=== PATIENT | female | born 1970 | race American Indian/Alaskan Native ===

== ENCOUNTER 2016-07-30 06:32 | Emergency (ER) | payer SELFPAY ==
[2016-07-30 07:23] VITALS: BP 126/84
[2016-07-30] MEDS ORDERED: TYLENOL PO ONE (08:52)
--- NOTE | 2016-07-30 08:53 | Emergency Department Report ---
ED General Adult HPI - General Chief complaint: Headache Stated complaint: HEAD PAIN Time Seen by Provider: 07/30/16 08:48 Source: patient Mode of arrival: Ambulatory Limitations: No Limitations - History of Present Illness Initial comments: 46-year-old -[place] female with a past medical history of viral meningitis in 2007 comes in today for complaint of right sided head pain/ear pain since yesterday. Patient reports that it hurts to scratch or rub the head or lay down on the right side. She denies any fever or chills she does admit to nausea but no vomiting she denies any neck stiffness or back pain. She reports, "I think I have a sinus infection". Patient currently takes no medications on a daily basis she has no known drug allergies she reports her last LMP was 07/12/2016 -: Gradual - Related Data Previous Rx's Medication Instructions Recorded Last Taken Type Cephalexin [Keflex] 500 mg PO Q12HR #14 cap 05/12/16 Unknown Rx HYDROcodone/APAP 5-325 [[place] 1 each PO Q6HR PRN #12 tablet 05/12/16 Unknown Rx 5/325] Ibuprofen [Motrin] 600 mg PO Q8H PRN #20 tablet 05/12/16 Unknown Rx Sulfamethoxazole/Trimethoprim 1 each PO BID #14 tablet 05/12/16 Unknown Rx [Bactrim DS TAB] Amoxicillin/K Clav Tab [Augmentin 1 tab PO Q12HR #20 tab 07/30/16 Unknown Rx 875 mg] Fluticasone [Flonase] 1 spray NS QDAY #1 bottle 07/30/16 Unknown Rx Ibuprofen [Motrin 600 MG tab] 600 mg PO Q8H PRN #30 tablet 07/30/16 Unknown Rx Allergies Allergy/AdvReac Type Severity Reaction Status Date / Time No Known Allergies Allergy Verified 07/30/16 07:23 ED Review of Systems ROS: Stated complaint: HEAD PAIN Other details as noted in HPI Constitutional: denies: chills, fever Eyes: denies: eye pain, eye discharge, vision change ENT: ear pain (right ear pain), congestion (nasal congestion), other (right side scalp tenderness to the parietal) Respiratory: denies: cough, shortness of breath, wheezing Cardiovascular: denies: chest pain, palpitations Endocrine: no symptoms reported Gastrointestinal: nausea. denies: vomiting, diarrhea, constipation Genitourinary: denies: urgency, dysuria, discharge ED Past Medical Hx - Past Medical History Hx Asthma: Yes - Social History Smoking Status: Current Every Day Smoker - Medications Home Medications: Home Medications Medication Instructions Recorded Confirmed Last Taken Type Cephalexin [Keflex] 500 mg PO Q12HR #14 cap 05/12/16 Unknown Rx HYDROcodone/APAP 5-325 [[place] 1 each PO Q6HR PRN #12 tablet 05/12/16 Unknown Rx 5/325] Ibuprofen [Motrin] 600 mg PO Q8H PRN #20 tablet 05/12/16 Unknown Rx Sulfamethoxazole/Trimethoprim 1 each PO BID #14 tablet 05/12/16 Unknown Rx [Bactrim DS TAB] Amoxicillin/K Clav Tab [Augmentin 1 tab PO Q12HR #20 tab 07/30/16 Unknown Rx 875 mg] Fluticasone [Flonase] 1 spray NS QDAY #1 bottle 07/30/16 Unknown Rx Ibuprofen [Motrin 600 MG tab] 600 mg PO Q8H PRN #30 tablet 07/30/16 Unknown Rx ED Physical Exam - General Limitations: No Limitations General appearance: alert, in no apparent distress - Head Head exam: Present: atraumatic, normocephalic, other (scalp tenderness to the right parietal) - Eye Eye exam: Present: normal appearance, PERRL, EOMI - ENT ENT exam: Present: normal exam, mucous membranes moist, TM's normal bilaterally , normal external ear exam - Neck Neck exam: Present: normal inspection, full ROM. Absent: tenderness, lymphadenopathy - Respiratory Respiratory exam: Present: normal lung sounds bilaterally. Absent: respiratory distress - Expanded Neurological Exam Expanded Speech: Present: fluid speech Cranial nerves: EOM's Intact: Normal, Gag Reflex: Normal, Tongue Deviation: Normal, Nystagmus: Normal, Facial Sensation: Normal Cerebellar function: Finger to Nose: Normal, Heel to Díaz: Normal, Romberg: Normal Upper motor neuron: Lio Neglect: Normal, Pronator Drift: Normal Sensory exam: Upper Extremity Light Touch: Normal, Lower Extremity Light Touch: Normal Motor strength exam: RUE: 4, LUE: 4, RLE: 4, LLE: 4 ED Course Vital Signs 07/30/16 07:10 Temperature 98.3 F Pulse Rate 87 Respiratory 18 Rate Blood Pressure 126/84 O2 Sat by Pulse 100 Oximetry ED Medical Decision Making - Radiology Data Radiology results: image reviewed CT HEAD WITHOUT CONTRAST INDICATION: Headache with history of meningitis. COMPARISON: None similar. FINDINGS: Noncontrast head CT with few images repeated for motion demonstrates normal ventricles and sulci without acute or recent infarct, hemorrhage, mass effect or midline shift. No abnormal extra-axial fluid collections. Posterior fossa structures and basilar cisterns appear within normal limits. Symmetric eye globes. Mild pansinusitis. Clear mastoid air cells. Intact calvarium. Mild right parietal scalp soft tissue swelling. Few radiopaque dental material incidentally noted. Mid to lower cervical spondylosis. CONCLUSION: No acute intracranial CT abnormality with mild right parietal scalp swelling, mild pansinusitis and few other incidental findings, as described. Thank you for the opportunity to participate in this patient's care. Transcribed By: RS Dictated By: URI JONES MD Electronically Authenticated By: URI JONES MD Signed Date/Time: 07/30/16 1005 - Medical Decision Making Since been evaluated by this provider in fast track. This case was discussed with Dr. Mariscal. We will do a CAT scan of the patient's head to rule out any abnormalities. We'll give Tylenol 975 mg by mouth now. Based on results will treat patient accordingly. Critical care attestation.: If time is entered above; I have spent that time in minutes in the direct care of this critically ill patient, excluding procedure time. ED Disposition Clinical Impression: Sinusitis Qualifiers: Sinusitis location: unspecified location Chronicity: acute Disposition: DISCHARGED TO HOME OR SELFCARE Is pt being admited?: No Does the pt Need Aspirin: No Condition: Stable Instructions: Sinusitis (ED) Prescriptions: Amoxicillin/K Clav Tab [Augmentin 875 mg] 1 tab PO Q12HR #20 tab Fluticasone [Flonase] 1 spray NS QDAY #1 bottle Ibuprofen [Motrin 600 MG tab] 600 mg PO Q8H PRN #30 tablet PRN Reason: Pain Referrals: BEATRIZ SHEIKH MD [Staff Physician] - 3-5 Days Forms: Work/School Release Form(ED)
--- NOTE | 2016-07-30 10:08 | Cat Scan Report ---
CT HEAD WITHOUT CONTRAST INDICATION: Headache with history of meningitis. COMPARISON: None similar. FINDINGS: Noncontrast head CT with few images repeated for motion demonstrates normal ventricles and sulci without acute or recent infarct, hemorrhage, mass effect or midline shift. No abnormal extra-axial fluid collections. Posterior fossa structures and basilar cisterns appear within normal limits. Symmetric eye globes. Mild pansinusitis. Clear mastoid air cells. Intact calvarium. Mild right parietal scalp soft tissue swelling. Few radiopaque dental material incidentally noted. Mid to lower cervical spondylosis. CONCLUSION: No acute intracranial CT abnormality with mild right parietal scalp swelling, mild pansinusitis and few other incidental findings, as described. Thank you for the opportunity to participate in this patient's care.
== END 2016-07-30 10:36 | disposition home or self-care (01) ==
LOC: ED 06:32
DX: J01.90 Acute sinusitis, unspecified (principal); J45.909 Unspecified asthma, uncomplicated; F17.200 Nicotine dependence, unspecified, uncomplicated
CPT/HCPCS: 70450

== ENCOUNTER 2016-07-30 18:33 | Emergency (ER) | payer SELFPAY ==
[2016-07-30 20:31] VITALS: BP 149/74
[2016-07-30] MEDS ORDERED: MORPHINE IV ONE (20:40)
[2016-07-30] MEDS ORDERED: BENADRYL IV ONE (20:40)
[2016-07-30] MEDS ORDERED: PEPCID IV ONE (20:40)
[2016-07-30] MEDS ORDERED: ZOFRAN IV ONE (20:40)
--- NOTE | 2016-07-30 20:41 | Emergency Department Report ---
HPI - General Chief Complaint: Allergic Reaction Time Seen by Provider: 07/30/16 19:55 - HPI HPI: Patient here complaining that she was here this morning for sinus infection and was prescribed Augmentin Flonase and ibuprofen. She says she took the Augmentin and 30 minutes after she took a demented she started feeling sick and having swelling to right side of face and scalp bumps on the side of her tongue and rash to hands. She was discharged with mild right parietal scalp swelling and mild sinusitis. She is complaining of vomiting in the face, thighs and finger and 7 her tongue. Neisen is swelling of throat, drooling or difficulty breathing. Denies any chest pain or tightness. Pain to hands and feet 10 out of 10 and pain to left side of her head 10 out of [address]. Patient [address] of the head at this morning. CT showed mild right parietal scalp swelling with mild Awan- sinusitis. ED Past Medical Hx - Past Medical History Previous Medical History?: Yes Hx Asthma: Yes - Surgical History Past Surgical History?: No - Family History Family history: no significant - Social History Smoking Status: Never Smoker Substance Use Type: None - Medications Home Medications: Home Medications Medication Instructions Recorded Confirmed Last Taken Type Cephalexin [Keflex] 500 mg PO Q12HR #14 cap 05/12/16 Unknown Rx HYDROcodone/APAP 5-325 [[place] 1 each PO Q6HR PRN #12 tablet 05/12/16 Unknown Rx 5/325] Ibuprofen [Motrin] 600 mg PO Q8H PRN #20 tablet 05/12/16 Unknown Rx Sulfamethoxazole/Trimethoprim 1 each PO BID #14 tablet 05/12/16 Unknown Rx [Bactrim DS TAB] Amoxicillin/K Clav Tab [Augmentin 1 tab PO Q12HR #20 tab 07/30/16 Unknown Rx 875 mg] Azithromycin [Zithromax Z-TRAY] 250 mg PO DAILY #6 tab 07/30/16 Unknown Rx Fluticasone [Flonase] 1 spray NS QDAY #1 bottle 07/30/16 Unknown Rx Ibuprofen [Motrin 600 MG tab] 600 mg PO Q8H PRN #30 tablet 07/30/16 Unknown Rx predniSONE [Deltasone] 20 mg PO QDAY #5 tab 07/30/16 Unknown Rx ED Review of Systems ROS: Stated complaint: ALLERGIC REACTION/TONGUE SWELLING Other details as noted in HPI Comment: All other systems reviewed and negative Constitutional: denies: chills, fever ENT: congestion. denies: ear pain, throat pain Respiratory: no symptoms reported Cardiovascular: denies: chest pain, palpitations, edema, syncope Gastrointestinal: denies: abdominal pain, nausea, vomiting, diarrhea Skin: rash Neurological: headache. denies: weakness, numbness, paresthesias, confusion, abnormal gait, vertigo Physical Exam - Physical Exam Vital Signs: Vital Signs 07/30/16 07/30/16 18:45 20:28 Temperature 98.3 F Pulse Rate 94 H 74 Respiratory 21 16 Rate Blood Pressure 139/81 Blood Pressure 149/74 [Left] O2 Sat by Pulse 99 95 Oximetry General: General: This is a 46-year-old female here for the second time today, she is well-nourished well-developed and in no acute distress. Physical Exam: Head: Normocephalic atraumatic. No contusion, abrasion. Tender to palpate right parietal scalp, no induration or fluctuance. No erythema. Mouth: Moist, no pharyngeal exudate or erythema. Uvula is midline and oral airway is patent. No gingival enlargement or dental tenderness. No facial swelling. No peritonsillar abscesses. Noted small lesion to the anterior tongue otherwise normal Neurologic: GCS at 15, alert and oriented 3, speech is normal and fluid. Negative pronator drift. Normal reflexes. Facial drooping. 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 No motor or sensory deficit. Neck: Supple, no C-spine tenderness, no tracheal deviation. Nontender to palpate. no adenopathy Ears: Bilateral TMs congested without erythema .bilateral EAC without any redness swelling or drainage Eyes: Bilateral pupils equal and reactive to light, bilateral EOM intact. Bilateral sclera and conjunctiva without injection. Normal accommodation Nose: Mucosa moist, positive congestion and erythema. Positive clear drainage. maxillary and frontal sinus non-tender to palpate. Lungs: Clear to auscultate bilaterally no rhonchi wheezes or rales. Normal work of breathing extremity; No CCE. +2 pulses. No neurovascular compromise Cardiovascular: S1-S2, regular rate rhythm. No murmurs. Skin: Maculopapular rash scattered sparsely to bilateral upper and lower extremities. Erythema without any induration. Psych: Normal mood and behavior. ED Course Vital Signs 07/30/16 07/30/16 18:45 20:28 Temperature 98.3 F Pulse Rate 94 H 74 Respiratory 21 16 Rate Blood Pressure 139/81 Blood Pressure 149/74 [Left] O2 Sat by Pulse 99 95 Oximetry - Reevaluation(s) Reevaluation #1: 07/30/16 22:24 Patient given Benadryl 50 mg IV, Solu-Medrol 125 mg IV, Pepcid 20 mg IV, morphine 4 mg IV and Zofran 4 mg IV in emergency room. She believes of headache and hand pain. 07/30/16 22:25 ED Medical Decision Making - Radiology Data Radiology results: report reviewed CT scan of the head that was done earlier this morning showed mild sinusitis and mild right scalp swelling. - Medical Decision Making ED course: A she presents to the emergency room after being seen this morning reporting that she has allergic reaction from Augmentin. She reports that she has a rash and swelling after taking Augmentin. She had CT scan this morning which showed that she has mild pansinusitis and mild right parietal scalp swelling. She was treated with Augmentin, Flonase and ibuprofen. Patient given Benadryl 50 mg, Solu-Medrol 125 mg, morphine 4 mg, Zofran 4 mg, and Pepcid 20 mg IV in emergency room. Upon reevaluation, rash subsided and patient says she feels much better. I discussed with her that she should stop taking Augmentin and I'll place her on prednisone, Claritin and Zithromax. 2. Undescended discharge instruction and discharged home with her family in stable condition. Critical care attestation.: If time is entered above; I have spent that time in minutes in the direct care of this critically ill patient, excluding procedure time. ED Disposition Clinical Impression: Allergic reaction to Augmentin, Rash and nonspecific skin eruption, Exanthema Sinusitis Qualifiers: Sinusitis location: pansinusitis Chronicity: unspecified Qualified Code(s): J32.4 - Chronic pansinusitis Disposition: DISCHARGED TO HOME OR SELFCARE Is pt being admited?: No Does the pt Need Aspirin: No Condition: Stable Instructions: Acute Rash (ED), Antibiotic Medication Allergy (ED), Sinusitis ( ED), Viral Exanthem (ED) Additional Instructions: Please stop taking Augmentin as it appears urine allergic to this Follow-up with your primary care physician in the morning. if he does not have a primary care physician he can follow up with [facility]. Please take medication as prescribed Prescriptions: Azithromycin [Zithromax Z-TRAY] 250 mg PO DAILY #6 tab predniSONE [Deltasone] 20 mg PO QDAY #5 tab Referrals: PRIMARY CARE, [Primary Care Provider] - 3-5 Days Forms: Work/School Release Form(ED)
== END 2016-07-30 22:48 | disposition home or self-care (01) ==
LOC: ED 18:33
DX: T36.0X5A Adverse effect of penicillins, initial encounter (principal); Y92.89 Other specified places as the place of occurrence of the external cause; J32.4 Chronic pansinusitis; R21 Rash and other nonspecific skin eruption; J45.909 Unspecified asthma, uncomplicated; Z88.1 Allergy status to other antibiotic agents
CPT/HCPCS: 96374; 96375; 99282; J1200; J2270; J2405; J2930

== ENCOUNTER 2016-08-01 01:56 | Inpatient (IN) | payer OTHER ==
[2016-08-01] MEDS ORDERED: PEPCID IV ONE (02:35)
[2016-08-01] MEDS ORDERED: BENADRYL IV ONE (02:35)
--- NOTE | 2016-08-01 03:04 | Emergency Department Report ---
HPI - General Chief Complaint: Allergic Reaction Time Seen by Provider: 08/01/16 03:04 - HPI HPI: 46-year-old female with past medical history isn't presents to the hospital complains of allergic reaction. Patient was seen here on July 30 and diagnosed with sinusitis after receiving of CT. She was put on Augmentin. Patient repositioned at that same day with symptoms of allergic reaction. She states she had lesions on her tongue, throat pain, and rash. Daytime. She was treated in the ED with Solu-Medrol, Benadryl, Pepcid, morphine, and Zofran and had improvement. She was discharged home on prednisone and Z-Tray which she has been taking since the . Despite this patient developed throat swelling and difficulty swallowing tonight, her macular rash has become more raised in described as a burning pain and she has swelling to bilateral hands and feet. Patient denies previous allergies prior to this episode ED Past Medical Hx - Past Medical History Previous Medical History?: Yes Hx Asthma: Yes - Social History Smoking Status: Never Smoker - Medications Home Medications: Home Medications Medication Instructions Recorded Confirmed Last Taken Type Cephalexin [Keflex] 500 mg PO Q12HR #14 cap 05/12/16 Unknown Rx HYDROcodone/APAP 5-325 [[place] 1 each PO Q6HR PRN #12 tablet 05/12/16 Unknown Rx 5/325] Ibuprofen [Motrin] 600 mg PO Q8H PRN #20 tablet 05/12/16 Unknown Rx Sulfamethoxazole/Trimethoprim 1 each PO BID #14 tablet 05/12/16 Unknown Rx [Bactrim DS TAB] Amoxicillin/K Clav Tab [Augmentin 1 tab PO Q12HR #20 tab 07/30/16 Unknown Rx 875 mg] Azithromycin [Zithromax Z-TRAY] 250 mg PO DAILY #6 tab 07/30/16 Unknown Rx Fluticasone [Flonase] 1 spray NS QDAY #1 bottle 07/30/16 Unknown Rx Ibuprofen [Motrin 600 MG tab] 600 mg PO Q8H PRN #30 tablet 07/30/16 Unknown Rx predniSONE [Deltasone] 20 mg PO QDAY #5 tab 07/30/16 Unknown Rx ED Review of Systems ROS: Stated complaint: FEVER, THROAT CLOSING Other details as noted in HPI Comment: All other systems reviewed and negative Other: Constitutional: No fevers chills Eyes: No eye pain visual changes ENT: as per hpi Neck: Denies pain Respiratory: Denies cough wheezing Cardiovascular: Denies chest pain, palpitations, syncope GI: Denies abdominal pain, nausea, vomiting, diarrhea : Denies dysuria, urinary frequency, or urgency Musculoskeletal: Denies back pain, joint swelling Skin:as per hpi Neurologic: Denies headache, numbness, weakness Psychiatric: Denies suicidal ideation, hallucinations Physical Exam - Physical Exam Vital Signs: Vital Signs 08/01/16 08/01/16 08/01/16 02:14 02:47 02:53 Temperature 98.7 F 98.7 F Pulse Rate 124 H 117 H Respiratory 14 26 H Rate Blood Pressure 136/115 Blood Pressure 124/71 [Left] O2 Sat by Pulse 99 100 100 Oximetry Physical Exam: General: No limitations, patient is alert in no acute distress Head exam: Atraumatic, normocephalic Eyes exam: Normal appearance ENT: Moist mucous membrane, sores noted to tongue (pt states these are improving ) , voice sounds normal Neck exam: Normal inspection, full range of motion, no meningismus nontender Respiratory exam: Clear to auscultation bilateral, no wheezes, rales, crackles Cardiovascular: Normal rate and rhythm, normal heart sounds Abdomen: Soft, nondistended, and nontender, with normal bowel sounds, no rebound, or guarding Extremity: Full range of motion, scattered rash CT scan, bilateral pedal edema and mild bilateral hand edema Back: Normal Inspection, full range of motion, no tenderness Neurologic: Alert, oriented x3, cranial nerves intact, no motor or sensory deficit Psychiatric: normal affect, normal mood Skin: Patient is raised circular lesions scattered throughout her body, mildly tender to palp. More flat macular nonblanching erythematous lesions identified in the lower extremities. ED Course Vital Signs 08/01/16 08/01/16 08/01/16 02:14 02:47 02:53 Temperature 98.7 F 98.7 F Pulse Rate 124 H 117 H Respiratory 14 26 H Rate Blood Pressure 136/115 Blood Pressure 124/71 [Left] O2 Sat by Pulse 99 100 100 Oximetry ED Medical Decision Making - Lab Data Result diagrams: 08/01/16 02:45 08/01/16 02:45 Lab Results 08/01/16 08/01/16 08/01/16 Range/Units 02:45 02:45 02:45 WBC 16.3 H (4.5-11.0) K/mm3 RBC 4.64 (3.65-5.03) M/mm3 Hgb 10.7 (10.1-14.3) gm/dl Hct 35.0 (30.3-42.9) % MCV 76 L (79-97) fl MCH 23 L (28-32) pg MCHC 30 (30-34) % RDW 20.4 H (13.2-15.2) % Plt Count 331 (140-440) K/mm3 Lymph % (Auto) 14.3 (13.4-35.0) % Daniels % (Auto) 7.0 (0.0-7.3) % Eos % (Auto) 0.0 (0.0-4.3) % Baso % (Auto) 0.1 (0.0-1.8) % Lymph # 2.3 (1.2-5.4) K/mm3 Daniels # 1.1 H (0.0-0.8) K/mm3 Eos # 0.0 (0.0-0.4) K/mm3 Baso # 0.0 (0.0-0.1) K/mm3 Seg Neutrophils % 78.6 H (40.0-70.0) % Seg Neutrophils # 12.8 H (1.8-7.7) K/mm3 PT 17.2 H (12.2-14.9) Sec. INR 1.41 H (0.87-1.13) APTT 33.0 (24.2-36.6) Sec. Sodium 134 L (137-145) mmol/L Potassium 4.4 (3.6-5.0) mmol/L Chloride 99.9 (98-107) mmol/L Carbon Dioxide 11 L (22-30) mmol/L Anion Gap 28 mmol/L BUN 16 (7-17) mg/dL Creatinine 1.4 H (0.7-1.2) mg/dL Estimated GFR 49 ml/min BUN/Creatinine Ratio 11.42 % Glucose 100 (65-100) mg/dL Calcium 9.3 (8.4-10.2) mg/dL - Medical Decision Making Patient be admitted to the hospital due to worsening symptoms despite outpatient treatment. Treated in the ED with Solu-Medrol, Benadryl, Pepcid, morphine, and Zofran - Differential Diagnosis allergic reaction, viral syndrome, drug eruption rash Critical Care Time: No Critical care attestation.: If time is entered above; I have spent that time in minutes in the direct care of this critically ill patient, excluding procedure time. ED Disposition Clinical Impression: Allergic reaction to Augmentin, Sinusitis, Exanthema Disposition: OP ADMITTED IP TO THIS HOSP Is pt being admited?: Yes Condition: Stable Time of Disposition: 04:11 (Dr rose/hosp)
[2016-08-01 03:23] LABS: Basophils % (Auto) 0.1 % (0.0-1.8); Hemoglobin 10.7 gm/dl (10.1-14.3); White Blood Count 16.3 K/mm3 (4.5-11.0)
[2016-08-01 03:27] LABS: Mean Corpuscular HGB Conc 30 % (30-34); Mean Corpuscular Hemoglobin 23 pg (28-32); Mean Corpuscular Volume 76 fl (79-97); Platelet Count 331 K/mm3 (140-440); Red Blood Count 4.64 M/mm3 (3.65-5.03); Red Cell Distribution Width 20.4 % (13.2-15.2)
[2016-08-01 03:32] LABS: INR 1.41 (0.87-1.13)
[2016-08-01 03:42] LABS: BUN/Creatinine Ratio 11.42; Calcium 9.3 mg/dL (8.4-10.2); Chloride 99.9 mmol/L (98-107); Potassium 4.4 mmol/L (3.6-5.0)
[2016-08-01] MEDS ORDERED: MORPHINE IV ONE (03:45)
[2016-08-01] MEDS ORDERED: ZOFRAN IV ONE (03:45)
[2016-08-01] MEDS ORDERED: MORPHINE ONE (03:47)
[2016-08-01] MEDS ORDERED: ZOFRAN ONE (03:47)
[2016-08-01] MEDS ORDERED: ADRENALINE P/F SUB-Q ONE (05:16)
[2016-08-01] MEDS ORDERED: MILK OF MAGNESIA PO PRN (05:16)
[2016-08-01] MEDS ORDERED: DULCOLAX PR PRN (05:16)
[2016-08-01] MEDS ORDERED: ZOFRAN IV PRN (05:16)
--- NOTE | 2016-08-01 05:26 | History and Physical Report ---
History of Present Illness Date of examination: 08/01/16 Date of admission: 08/01/16 04:12 Chief complaint: allergic reaction and siusitis History of present illness: Should 46-year-old female that originally presented to the ED would acute sinusitis. Patient was given Augmentin/amoxicillin and in a few days came back with a complaint of rash high-dose swollen eyes and lips. Patient was given Solu-Medrol Pepcid and anabiotic was changed from Augmentin to azithromycin. 2 days ago patient returned back to the ED stating that she's had difficulty swallowing now the hives and wheals are more pronounced in the itching is more pronounced as well. Patient was admitted for a large reaction rule out anaphylactic reaction now. On evaluation patient's mouth and oropharynx I do not see much inflammation or angioedema. I think this be may be more sinusitis with postnasal drip and mucus formation as opposed to daily allergic reaction. Patient does have allergic reaction given the welts and hives on her legs. But I do not think this has anything to do with her shortness of breath. Patient has extensive wheezing or shortness of breath albuterol Atrovent nebulizers will be very beneficial. Past History Past Medical History: denies: acute AR, arrhythmia, anemia, cancer, COPD, DVT, ESRD, GERD, hypothyroidism, migraines, PVD, pulmonary embolism, seizures, stroke Past Surgical History: denies: No surgical history, appendectomy, abd. aortic aneurysm repair, arthroscopy, valve replacement Social history: no significant social history, full code. denies: smoking, alcohol abuse, prescription drug abuse, IV drug use, AND/DNR-allow natural Family history: no significant family history Medications and Allergies Allergies Allergy/AdvReac Type Severity Reaction Status Date / Time amoxicillin Allergy Swelling Verified 08/01/16 03:07 Home Medications Medication Instructions Recorded Confirmed Last Taken Type Azithromycin [Zithromax Z-TRAY] 250 mg PO DAILY #6 tab 07/30/16 08/01/16 1 Day Ago Rx predniSONE [Deltasone] 20 mg PO QDAY #5 tab 07/30/16 08/01/16 1 Day Ago Rx Review of Systems Constitutional: no weight loss, no weight gain, no sweats, no weakness, no malaise, no poor appetite, no daytime sleepiness, no chronic pain, no other Ears, nose, mouth and throat: sinus pressure, sinus pain, swelling in mouth, no deferred, no ear pain, no ear discharge, no tinnitis, no decreased hearing, no nose pain, no nasal congestion, no nasal discharge, no epistaxis, no bleeding gums, no dental pain, no mouth pain, no dysphagia, no hoarseness, no sore throat , no swelling in throat, no odynophagia, no voice changes, no post-nasal drip, no headache, no vertigo, no pain front of neck, no neck fullness/pressure, no neck lump Breasts: normal Cardiovascular: no palpitations, no rapid/irregular heart beat, no edema, no syncope, no paroxysmal nocturnal dyspnea, no claudication Respiratory: shortness of breath, sleep apnea, no cough, no cough with sputum, no wheezing, no pain Gastrointestinal: no nausea, no vomiting, no diarrhea, no constipation, no change in bowel habits, no hematemesis, no BRBPR, no melena, no early satiety, no heartburn, no indigestion, no jaundice, no dyspepsia/bloating, no early satiety Genitourinary Female: no pelvic pain, no urinary frequency, no stress incontinence, no incomplete emptying Menstruation: no premenarcheal, no ammenorrhea, no ammenorrhea on BC, no period normal Rectal: no incontinence, no bleeding Musculoskeletal: no neck pain, no shooting arm pain, no hot joints, no morning stiffness, no muscle weakness, no muscle cramps, no myalgias, no atrophy, no limitation of motion, no fractures, no loss of height, no prior amputations, no arthritis Integumentary: rash, pruritis, redness, no sores, no wounds, no jaundice, no boils, no darkening of skin, no acne, no dryness, no color changes, no unusual bruising, no brittle nails, no hirsutism Neurological: no parathesias, no tingling, no syncope, no tremors, no headaches , no migraines, no convulsions, no aphasia, no change in mentation, no memory loss, no motor disturbance, no sensory deficit, no loss of vision, no hearing difficulties, no paralysis Psychiatric: no memory loss, no change in sleep habits, no sleep disturbances, no insomnia, no hypersomnia, no change in libido, no suicidal ideation, no paranoia, no depression, no anxiety attacks, no sadness/tearfullness Endocrine: no cold intolerance, no heat intolerance, no polyphagia, no excessive thirst, no increase in ring/shoe/hat size, no proptosis, no deepening of the voice, no thyroid mass, no high blood sugars, no low blood sugars, no recent glucocorticoid use Hematologic/Lymphatic: no easy bleeding, no lymphadenopathy, no other Allergic/Immunologic: anaphylaxis, seasonal allergies, no urticaria, no wheezing , no persistent infections, no gluten intolerance Exam - Constitutional Vitals: Temp Pulse Resp BP Pulse Ox 98.7 F 117 H 26 H 124/71 100 08/01/16 02:47 08/01/16 02:47 08/01/16 02:47 08/01/16 02:47 08/01/16 02:53 General appearance: Present: mild distress, well-nourished - EENT Eyes: Present: PERRL ENT: hearing intact, clear oral mucosa - Neck Neck: Present: supple, normal ROM - Respiratory Respiratory: bilateral: rales, wheezing (heart wheezing bilaterally on physical exam.) - Cardiovascular Heart Sounds: Present: S1 & S2. Absent: rub, click - Extremities Extremities: pulses symmetrical, No edema Peripheral Pulses: within normal limits - Abdominal General gastrointestinal: Present: soft, non-tender, non-distended, normal bowel sounds Female genitourinary: Present: normal - Integumentary Integumentary: Present: clear, warm, dry. Absent: erythema, jaundice, rash - Musculoskeletal Musculoskeletal: gait normal, strength equal bilaterally - Psychiatric Psychiatric: appropriate mood/affect - Neurologic Neurologic: CNII-XII intact, moves all extremities Results - Labs CBC & Chem 7: 08/01/16 02:45 08/01/16 02:45 Labs: Laboratory Last Values WBC 16.3 K/mm3 (4.5-11.0) H 08/01/16 02:45 RBC 4.64 M/mm3 (3.65-5.03) 08/01/16 02:45 Hgb 10.7 gm/dl (10.1-14.3) 08/01/16 02:45 Hct 35.0 % (30.3-42.9) 08/01/16 02:45 MCV 76 fl (79-97) L 08/01/16 02:45 MCH 23 pg (28-32) L 08/01/16 02:45 MCHC 30 % (30-34) 08/01/16 02:45 RDW 20.4 % (13.2-15.2) H 08/01/16 02:45 Plt Count 331 K/mm3 (140-440) 08/01/16 02:45 Lymph % (Auto) 14.3 % (13.4-35.0) 08/01/16 02:45 [place] % (Auto) 7.0 % (0.0-7.3) 08/01/16 02:45 Eos % (Auto) 0.0 % (0.0-4.3) 08/01/16 02:45 Baso % (Auto) 0.1 % (0.0-1.8) 08/01/16 02:45 Lymph # 2.3 K/mm3 (1.2-5.4) 08/01/16 02:45 [place] # 1.1 K/mm3 (0.0-0.8) H 08/01/16 02:45 Eos # 0.0 K/mm3 (0.0-0.4) 08/01/16 02:45 Baso # 0.0 K/mm3 (0.0-0.1) 08/01/16 02:45 Seg Neutrophils % 78.6 % (40.0-70.0) H 08/01/16 02:45 Seg Neutrophils # 12.8 K/mm3 (1.8-7.7) H 08/01/16 02:45 PT 17.2 Sec. (12.2-14.9) H 08/01/16 02:45 INR 1.41 (0.87-1.13) H 08/01/16 02:45 APTT 33.0 Sec. (24.2-36.6) 08/01/16 02:45 Sodium 134 mmol/L (137-145) L 08/01/16 02:45 Potassium 4.4 mmol/L (3.6-5.0) 08/01/16 02:45 Chloride 99.9 mmol/L (98-107) 08/01/16 02:45 Carbon Dioxide 11 mmol/L (22-30) L 08/01/16 02:45 Anion Gap 28 mmol/L 08/01/16 02:45 BUN 16 mg/dL (7-17) 08/01/16 02:45 Creatinine 1.4 mg/dL (0.7-1.2) H 08/01/16 02:45 Estimated GFR 49 ml/min 08/01/16 02:45 BUN/Creatinine Ratio 11.42 % 08/01/16 02:45 Glucose 100 mg/dL (65-100) 08/01/16 02:45 Calcium 9.3 mg/dL (8.4-10.2) 08/01/16 02:45 - Imaging and Cardiology EKG: image reviewed Assessment and Plan Advance Directives: Yes VTE prophylaxis?: Chemical Plan of care discussed with patient/family: Yes - Patient Problems (1) Allergic reaction to Augmentin Current Visit: Yes Status: Acute Plan to address problem: Patient with allergic reaction to Augmentin. Patient has some hives we'll on her skin. Blisters on her forearms. 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 Patient does not appear to be that acutely ill now. We'll treat with steroid- induced Solu-Medrol Benadryl. (2) Exanthema Current Visit: Yes Status: Acute (3) Sinusitis Current Visit: Yes Status: Acute Qualifiers: Sinusitis location: S Chronicity: C Recurrence: R Plan to address problem: Acute sinusitis we'll treat with azithromycin. Mucinex D. (4) Asthma exacerbation Current Visit: Yes Status: Acute Plan to address problem: Patient has significant underlying asthma. We'll treat with albuterol Atrovent nebulizes as Solu-Medrol as well. [place] anabiotic azithromycin has been already been given.
[2016-08-01] MEDS: ZITHROMAX 500 MG in NACL 0.9% 250ML 250 ML IV SCH (06:08)
[2016-08-01] MEDS: NACL 0.9% 1000 ML 1,000 ML IV SCH (06:09)
[2016-08-01] MEDS: ATIVAN IV PRN ×2 (07:08→22:29)
[2016-08-01] MEDS: MORPHINE IV PRN ×3 (07:08→22:30)
[2016-08-01] MEDS ORDERED: DUONEB 0.5 MG-3 MG/3 ML SOLN IH SCH (08:00)
[2016-08-01] MEDS: DUONEB 0.5 MG-3 MG/3 ML SOLN IH SCH ×3 (08:28→20:55)
--- NOTE | 2016-08-01 08:49 | XRay Report ---
Single view chest: History: Asthma. Findings: Normal cardiomediastinal silhouette. Trachea is midline. No consolidation, pneumothorax or pleural effusion. Impression: No acute cardiopulmonary findings.
--- NOTE | 2016-08-01 09:05 | Admit Criteria Form ---
Admission Criteria Documentation: ASTHMA Clinical Indications for Admission to Inpatient Care (Place 'X' for any and all applicable criteria): Admission is indicated for ANY ONE of the following (1)(2)(3)(4)(5): [ ]I. Absent or markedly diminished breath sounds (silent chest) [ ]II. Oxygen saturation < 92% [ ]III. PaCO2 = / > 42 mm Hg (5.6 kPa) [ ]IV. Peak expiratory flow rate < 40% of predicted or personal best after treatment. [ ]V. Peak expiratory flow rate < 33% of predicted or personal before after treatment [ ]. Change in mental status [ ]VII. Ventilatory support required [ ]VIII. PaO2 < 60 mm Hg (8.0 kPa) [ ]IX. Cyanosis [ ]X. Cardiac dysrhythmia (e.g., bradycardia) [ ]XI. Hemodynamic instability [ ]XII. Radiographic evidence of complication requiring inpatient treatment (e.g., pneumonia, pneumothorax) [X ]XIII. Inpatient admission required rather than observation care (also use Asthma: Observation Care guideline as appropriate) because of ANY ONE of the following: [ ]a) Respiratory finding that is severe or persistent (eg, dyspnea, tachypnea, accessory muscle use) [ ]b) Airflow measurements less than 60% of predicted or personal best that persist (e.g., over 24 hours) or worsen despite treatments [ ]c) Supplemental oxygen or respiratory treatments for over 24 hours that are performable only in acute inpatient setting [X ]d) Other condition, treatment or monitoring requiring inpatient admission. Extended stay beyond goal length of stay may be needed for (26)(27)(28): [ ]a) Severe respiratory failure (23) (29) (30) [ ]b) Secondary causes and complications (25) [ ]c) Status asthmaticus [ ]d) Chronic obstructive asthma [ ]e) Older patients (29) [ ]f) Slow resolution [ ]g) Clinically significant exacerbation of comorbidities (eg, jacinta. heart failure, atrial fibrillation) The original [employer] content created by [email or web address] has been revised. The portions of the content which have been revised are identified through the use of italic text or in bold, and [employer] has neither reviewed nor approved the modified material. All other unmodified content is copyright [employer] Please see references footnoted in the original [facility] edition 2016 Admission Criteria Met: Yes
--- NOTE | 2016-08-01 15:17 | Event Note ---
Date: 08/01/16
[2016-08-01] MEDS ORDERED: BENADRYL IV PRN (16:11)
[2016-08-01] MEDS: LOVENOX SUB-Q SCH (16:43)
[2016-08-01] MEDS: BENADRYL IV SCH ×2 (16:43→23:08)
[2016-08-01] MEDS: PEPCID IV SCH ×2 (16:44→22:30)
[2016-08-01 17:46] LABS: HIV-1 Antigen p24 Non React (Non React); HIVR-1/2 Ab Non React (Non React)
[2016-08-02] MEDS: DUONEB 0.5 MG-3 MG/3 ML SOLN IH SCH ×4 (02:09→20:42)
[2016-08-02 05:15] LABS: Anion Gap 23 mmol/L; BUN/Creatinine Ratio 26.66; Blood Urea Nitrogen 24 mg/dL (7-17); Calcium 8.4 mg/dL (8.4-10.2); Carbon Dioxide 13 mmol/L (22-30); Chloride 105.2 mmol/L (98-107); Glucose 152 mg/dL (65-100); Sodium 138 mmol/L (137-145)
[2016-08-02 05:33] LABS: Potassium 3.4 mmol/L (3.6-5.0)
[2016-08-02] MEDS: BENADRYL IV SCH ×4 (06:14→22:18)
[2016-08-02] MEDS: TYLENOL PO PRN (10:14)
[2016-08-02] MEDS: LOVENOX SUB-Q SCH (10:15)
[2016-08-02] MEDS: PEPCID IV SCH (10:15)
[2016-08-02] MEDS: ZITHROMAX 500 MG in NACL 0.9% 250ML 250 ML IV SCH (10:16)
[2016-08-02] MEDS: NACL 0.9% 1000 ML 1,000 ML IV SCH (10:16)
[2016-08-02 10:32] LABS: Basophils % (Auto) TNR % (0.0-1.8); Diff Status TNR; Eosinophils % (Auto) TNR % (0.0-4.3)
[2016-08-02] MEDS: ATIVAN IV PRN (12:05)
--- NOTE | 2016-08-02 13:52 | Progress Note ---
Assessment and Plan Assessment and plan: Acute Asthma exacerbation * We'll treat with albuterol /Atrovent nebulizes, Solu-Medrol and azithromycin Allergic reaction to Augmentin * Patient with allergic reaction to Augmentin. Patient has some hives we'll on her skin. Blisters on her forearms. 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 Patient does not appear to be that acutely ill now. We'll treat with Solu- Medrol and Benadryl. Acute Exanthema * HIV, RPR negative * likely due to allergic reaction to augmentin Acute Sinusitis * continue with azithromycin. Mucinex D. leukocytosis * likely due to stress and steroid induced Dysphagia * We'll do a barium swallow study and speech * Could be due to underlying allergic reaction to an augmentin and an acute asthma exacerbation History Interval history: pt seen and examined, c/o chocking when tries solid food also c/o exertional dyspnea Hospitalist Physical - Physical exam Narrative exam: GENERAL: well-developed and well-nourished -[place] female lying on bed appeared to be in no discomfort. HEENT: Normocephalic. Atraumatic. No conjunctival congestion or icterus. Patient has moist mucous membranes. NECK: Supple. Trachea midline. CHEST/LUNGS: few wheezes auscultated bilaterally, breathing nonlabored. No crackles or rhonchi. HEART/CARDIOVASCULAR: Regular in rate and rhythm. S1 and S2 positive. ABDOMEN: Abdomen is soft, nontender. Patient has normal bowel sounds. SKIN: Positive for hives on the extremities mainly on upper. Warm and dry. NEURO: No focal motor deficit. Follows command. MUSCULOSKELETAL: No joint effusion or tenderness. EXTRIMITY: No edema, no cyanosis or clubbing. PSYCH: Cooperative. - Constitutional Vitals: Temp Pulse Resp BP Pulse Ox 98.4 F 99 H 20 120/64 97 08/02/16 08:00 08/02/16 08:58 08/02/16 08:58 08/02/16 08:00 08/02/16 08:00 General appearance: Present: mild distress, well-nourished Results - Labs CBC & Chem 7: 08/02/16 15:25 08/02/16 03:37 Labs: Laboratory Last Values WBC Not Reportable 08/02/16 10:04 RBC Not Reportable 08/02/16 10:04 Hgb Not Reportable 08/02/16 10:04 Hct Not Reportable 08/02/16 10:04 MCV Not Reportable 08/02/16 10:04 MCH Not Reportable 08/02/16 10:04 MCHC Not Reportable 08/02/16 10:04 RDW Not Reportable 08/02/16 10:04 Plt Count Not Reportable 08/02/16 10:04 Lymph % (Auto) Not Reportable 08/02/16 10:04 [place] % (Auto) TNR 08/02/16 10:04 Eos % (Auto) TNR 08/02/16 10:04 Baso % (Auto) TNR 08/02/16 10:04 Lymph # TNR 08/02/16 10:04 [place] # TNR 08/02/16 10:04 Eos # TNR 08/02/16 10:04 Baso # TNR 08/02/16 10:04 Add Manual Diff TNR 08/02/16 10:04 Seg Neutrophils % TNR 08/02/16 10:04 Seg Neutrophils # TNR 08/02/16 10:04 PT 17.2 Sec. (12.2-14.9) H 08/01/16 02:45 INR 1.41 (0.87-1.13) H 08/01/16 02:45 APTT 33.0 Sec. (24.2-36.6) 08/01/16 02:45 Sodium 138 mmol/L (137-145) 08/02/16 03:37 Potassium 3.4 mmol/L (3.6-5.0) L D 08/02/16 03:37 Chloride 105.2 mmol/L (98-107) 08/02/16 03:37 Carbon Dioxide 13 mmol/L (22-30) L 08/02/16 03:37 Anion Gap 23 mmol/L 08/02/16 03:37 BUN 24 mg/dL (7-17) H 08/02/16 03:37 Creatinine 0.9 mg/dL (0.7-1.2) 08/02/16 03:37 Estimated GFR > 60 ml/min 08/02/16 03:37 BUN/Creatinine Ratio 26.66 % 08/02/16 03:37 Glucose 152 mg/dL (65-100) H 08/02/16 03:37 Calcium 8.4 mg/dL (8.4-10.2) 08/02/16 03:37 RPR Nonreactive (Nonreactive) 08/01/16 17:06 HIV 1&2 Antibody Rapid Non react (Non React) 08/01/16 17:06 HIV P24 Antigen Non react (Non React) 08/01/16 17:06
[2016-08-02 16:12] LABS: Hematocrit 25.4 % (30.3-42.9); Mean Corpuscular HGB Conc 31 % (30-34); Mean Corpuscular Volume 74 fl (79-97); Platelet Count 224 K/mm3 (140-440); Red Blood Count 3.44 M/mm3 (3.65-5.03)
[2016-08-02 16:23] LABS: Mean Corpuscular Hemoglobin 23 pg (28-32); Red Cell Distribution Width 20.3 % (13.2-15.2)
[2016-08-02] MEDS: MORPHINE IV PRN (20:25)
[2016-08-02] MEDS: PEPCID PO SCH (22:21)
[2016-08-03] MEDS: DUONEB 0.5 MG-3 MG/3 ML SOLN IH SCH ×4 (02:03→19:41)
[2016-08-03] MEDS: BENADRYL IV SCH ×5 (05:45→22:27)
[2016-08-03] MEDS: LOVENOX SUB-Q SCH (10:22)
[2016-08-03] MEDS: ZITHROMAX 500 MG in NACL 0.9% 250ML 250 ML IV SCH (10:22)
[2016-08-03] MEDS: PEPCID PO SCH ×2 (10:22→21:45)
[2016-08-03] MEDS ORDERED: PROVENTIL IH PRN (23:20)
[2016-08-04] MEDS: TYLENOL PO PRN (00:42)
[2016-08-04] MEDS ORDERED: CHLORASEPTIC MM PRN (00:47)
[2016-08-04] MEDS ORDERED: CEPACOL X STRENGTH MM PRN (00:49)
[2016-08-04] MEDS: ATIVAN IV PRN (05:25)
[2016-08-04] MEDS: BENADRYL IV SCH ×4 (05:26→22:28)
--- NOTE | 2016-08-04 08:15 | Progress Note ---
Assessment and Plan Assessment and plan: Acute Asthma exacerbation * We'll treat with albuterol /Atrovent nebulizes, Solu-Medrol and azithromycin Allergic reaction to Augmentin * Patient with allergic reaction to Augmentin. Patient has some hives we'll on her skin. Blisters on her forearms. 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 Patient does not appear to be that acutely ill now. We'll treat with Solu- Medrol and Benadryl. Acute Exanthema * HIV, RPR negative * likely due to allergic reaction to augmentin Acute Sinusitis * continue with azithromycin. Mucinex D. leukocytosis * likely due to stress and steroid induced * repeat level tomorrow Dysphagia * We'll do a barium swallow study, scheduled on Thursday * Could be due to underlying allergic reaction to an augmentin and an acute asthma exacerbation * no aspiration noted per speech eval, c/o pain on swallowing * will place on magic mouth wash History Interval history: pt seen and examined, c/o chocking when tries solid food with pain also c/o exertional dyspnea Hospitalist Physical - Physical exam Narrative exam: GENERAL: well-developed and well-nourished -[place] female lying on bed appeared to be in no discomfort. HEENT: Normocephalic. Atraumatic. No conjunctival congestion or icterus. Patient has moist mucous membranes. tongue with thick white coating NECK: Supple. Trachea midline. CHEST/LUNGS: few wheezes auscultated bilaterally, breathing nonlabored. No crackles or rhonchi. HEART/CARDIOVASCULAR: Regular in rate and rhythm. S1 and S2 positive. ABDOMEN: Abdomen is soft, nontender. Patient has normal bowel sounds. SKIN: Positive for hives on the extremities mainly on upper. Warm and dry. NEURO: No focal motor deficit. Follows command. MUSCULOSKELETAL: No joint effusion or tenderness. EXTRIMITY: No edema, no cyanosis or clubbing. PSYCH: Cooperative. - Constitutional Vitals: Temp Pulse Resp BP Pulse Ox 98.2 F 73 18 131/64 99 08/04/16 04:05 08/04/16 04:05 08/04/16 07:23 08/04/16 04:05 08/04/16 04:05 General appearance: Present: mild distress, well-nourished Results - Labs CBC & Chem 7: 08/02/16 15:25 08/02/16 03:37 Labs: Laboratory Last Values WBC 21.0 K/mm3 (4.5-11.0) H 08/02/16 15:25 RBC 3.44 M/mm3 (3.65-5.03) L 08/02/16 15:25 Hgb 8.0 gm/dl (10.1-14.3) L 08/02/16 15:25 Hct 25.4 % (30.3-42.9) L D 08/02/16 15:25 MCV 74 fl (79-97) L 08/02/16 15:25 MCH 23 pg (28-32) L 08/02/16 15:25 MCHC 31 % (30-34) 08/02/16 15:25 RDW 20.3 % (13.2-15.2) H 08/02/16 15:25 Plt Count 224 K/mm3 (140-440) 08/02/16 15:25 Lymph % (Auto) Not Reportable 08/02/16 10:04 [place] % (Auto) TNR 08/02/16 10:04 Eos % (Auto) TNR 08/02/16 10:04 Baso % (Auto) TNR 08/02/16 10:04 Lymph # TNR 08/02/16 10:04 [place] # TNR 08/02/16 10:04 Eos # TNR 08/02/16 10:04 Baso # TNR 08/02/16 10:04 Add Manual Diff TNR 08/02/16 10:04 Seg Neutrophils % TNR 08/02/16 10:04 Seg Neutrophils # TNR 08/02/16 10:04 PT 17.2 Sec. (12.2-14.9) H 08/01/16 02:45 INR 1.41 (0.87-1.13) H 08/01/16 02:45 APTT 33.0 Sec. (24.2-36.6) 08/01/16 02:45 Sodium 138 mmol/L (137-145) 08/02/16 03:37 Potassium 3.4 mmol/L (3.6-5.0) L D 08/02/16 03:37 Chloride 105.2 mmol/L (98-107) 08/02/16 03:37 Carbon Dioxide 13 mmol/L (22-30) L 08/02/16 03:37 Anion Gap 23 mmol/L 08/02/16 03:37 BUN 24 mg/dL (7-17) H 08/02/16 03:37 Creatinine 0.9 mg/dL (0.7-1.2) 08/02/16 03:37 Estimated GFR > 60 ml/min 08/02/16 03:37 BUN/Creatinine Ratio 26.66 % 08/02/16 03:37 Glucose 152 mg/dL (65-100) H 08/02/16 03:37 Calcium 8.4 mg/dL (8.4-10.2) 08/02/16 03:37 RPR Nonreactive (Nonreactive) 08/01/16 17:06 HIV 1&2 Antibody Rapid Non react (Non React) 08/01/16 17:06 HIV P24 Antigen Non react (Non React) 08/01/16 17:06
[2016-08-04] MEDS: DUONEB 0.5 MG-3 MG/3 ML SOLN IH SCH ×3 (08:59→20:00)
[2016-08-04 09:21] LABS: Hematocrit 22.3 % (30.3-42.9); Hemoglobin 7.2 gm/dl (10.1-14.3); Mean Corpuscular HGB Conc 32 % (30-34); Mean Corpuscular Hemoglobin 24 pg (28-32); Mean Corpuscular Volume 74 fl (79-97); Platelet Count 216 K/mm3 (140-440); Red Blood Count 3.03 M/mm3 (3.65-5.03); Red Cell Distribution Width 20.4 % (13.2-15.2); White Blood Count 14.1 K/mm3 (4.5-11.0)
[2016-08-04] MEDS: ZITHROMAX 500 MG in NACL 0.9% 250ML 250 ML IV SCH (10:01)
[2016-08-04] MEDS: LOVENOX SUB-Q SCH (10:02)
[2016-08-04] MEDS: PEPCID PO SCH ×3 (10:02→22:28)
[2016-08-04] MEDS: MORPHINE IV PRN ×2 (11:55→22:29)
[2016-08-04] MEDS: MAGIC MOUTHWASH PO SCH ×2 (13:44→22:27)
--- NOTE | 2016-08-04 16:22 | Fluoroscopy Report ---
MODIFIED BARIUM SWALLOW Findings: Fluoroscopy was provided by the radiologist for speech therapy to assess the swallowing mechanism. Please refer to the formal report by speech therapy. Impression: Successful modified barium swallow.
--- NOTE | 2016-08-04 18:21 | Progress Note ---
Assessment and Plan Assessment and plan: Acute Asthma exacerbation * Cont with albuterol /Atrovent nebulizes, Solu-Medrol and azithromycin Allergic reaction to Augmentin * Patient with allergic reaction to Augmentin. Patient has some hives on her skin. Blisters on her forearms. 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 Cont with Solu-Medrol and Benadryl. Acute Exanthema * HIV, RPR negative * likely due to allergic reaction to augmentin Acute Sinusitis * continue with azithromycin. Mucinex D. leukocytosis * likely due to stress and steroid induced * repeat level tomorrow Pharyngeal Dysphagia * barium swallow study was abnormal * no aspiration noted per speech eval, c/o pain on swallowing * will place on magic mouth wash, place on GI soft diet Microcytic anemia * No active bleeding, monitor H and H * Check stool for occult blood, if positive consult GI Hypokalemia, replace and monitor History Interval history: pt seen and examined, c/o chocking when tries solid food with pain also c/o exertional dyspnea, H and h dropping Hospitalist Physical - Physical exam Narrative exam: GENERAL: well-developed and well-nourished -[place] female lying on bed appeared to be in no discomfort. HEENT: Normocephalic. Atraumatic. No conjunctival congestion or icterus. Patient has moist mucous membranes. tongue with thick white coating NECK: Supple. Trachea midline. CHEST/LUNGS: few wheezes auscultated bilaterally, breathing nonlabored. No crackles or rhonchi. HEART/CARDIOVASCULAR: Regular in rate and rhythm. S1 and S2 positive. ABDOMEN: Abdomen is soft, nontender. Patient has normal bowel sounds. SKIN: Positive for hives on the extremities mainly on upper. Warm and dry. NEURO: No focal motor deficit. Follows command. MUSCULOSKELETAL: No joint effusion or tenderness. EXTRIMITY: No edema, no cyanosis or clubbing. PSYCH: Cooperative. - Constitutional Vitals: Temp Pulse Resp BP Pulse Ox 98.7 F 88 20 122/67 100 08/04/16 11:30 08/04/16 14:10 08/04/16 14:10 08/04/16 11:30 08/04/16 11:30 General appearance: Present: mild distress, well-nourished Results - Labs CBC & Chem 7: 08/04/16 08:52 08/02/16 03:37 Labs: Laboratory Last Values WBC 14.1 K/mm3 (4.5-11.0) H 08/04/16 08:52 RBC 3.03 M/mm3 (3.65-5.03) L 08/04/16 08:52 Hgb 7.2 gm/dl (10.1-14.3) L 08/04/16 08:52 Hct 22.3 % (30.3-42.9) L 08/04/16 08:52 MCV 74 fl (79-97) L 08/04/16 08:52 MCH 24 pg (28-32) L 08/04/16 08:52 MCHC 32 % (30-34) 08/04/16 08:52 RDW 20.4 % (13.2-15.2) H 08/04/16 08:52 Plt Count 216 K/mm3 (140-440) 08/04/16 08:52 Lymph % (Auto) Not Reportable 08/02/16 10:04 [place] % (Auto) TNR 08/02/16 10:04 Eos % (Auto) TNR 08/02/16 10:04 Baso % (Auto) TNR 08/02/16 10:04 Lymph # TNR 08/02/16 10:04 [place] # TNR 08/02/16 10:04 Eos # TNR 08/02/16 10:04 Baso # TNR 08/02/16 10:04 Add Manual Diff TNR 08/02/16 10:04 Seg Neutrophils % TNR 08/02/16 10:04 Seg Neutrophils # TNR 08/02/16 10:04 PT 17.2 Sec. (12.2-14.9) H 08/01/16 02:45 INR 1.41 (0.87-1.13) H 08/01/16 02:45 APTT 33.0 Sec. (24.2-36.6) 08/01/16 02:45 Sodium 138 mmol/L (137-145) 08/02/16 03:37 Potassium 3.4 mmol/L (3.6-5.0) L D 08/02/16 03:37 Chloride 105.2 mmol/L (98-107) 08/02/16 03:37 Carbon Dioxide 13 mmol/L (22-30) L 08/02/16 03:37 Anion Gap 23 mmol/L 08/02/16 03:37 BUN 24 mg/dL (7-17) H 08/02/16 03:37 Creatinine 0.9 mg/dL (0.7-1.2) 08/02/16 03:37 Estimated GFR > 60 ml/min 08/02/16 03:37 BUN/Creatinine Ratio 26.66 % 08/02/16 03:37 Glucose 152 mg/dL (65-100) H 08/02/16 03:37 Calcium 8.4 mg/dL (8.4-10.2) 08/02/16 03:37 RPR Nonreactive (Nonreactive) 08/01/16 17:06 HIV 1&2 Antibody Rapid Non react (Non React) 08/01/16 17:06 HIV P24 Antigen Non react (Non React) 08/01/16 17:06 - Imaging and Cardiology Imaging and Cardiology: barium swallow study result noted
[2016-08-04 21:51] LABS: Total Iron Binding Capacity 380.8 mcg/dL (250-450)
[2016-08-04 21:57] LABS: Albumin 3.6 g/dL (3.9-5); Albumin/Globulin Ratio 1.1 %; Bilirubin,Direct 0.2 mg/dL (0-0.2); Bilirubin,Indirect 0.2 mg/dL; Bilirubin,Total 0.4 mg/dL (0.1-1.2); Total Protein 6.8 g/dL (6.3-8.2)
[2016-08-04] MEDS: KCL 10MEQ/100ML 10 MEQ/100 ML BAG IV SCH (22:27)
[2016-08-05] MEDS: KCL 10MEQ/100ML 10 MEQ/100 ML BAG IV SCH (00:48)
[2016-08-05] MEDS ORDERED: K-DUR PO ONE (01:00)
[2016-08-05] MEDS: BENADRYL IV SCH ×4 (05:37→22:11)
[2016-08-05 06:00] LABS: Hematocrit 23.4 % (30.3-42.9); Hemoglobin 7.5 gm/dl (10.1-14.3); Mean Corpuscular HGB Conc 32 % (30-34); Mean Corpuscular Hemoglobin 24 pg (28-32); Mean Corpuscular Volume 73 fl (79-97); Platelet Count 238 K/mm3 (140-440); Red Blood Count 3.19 M/mm3 (3.65-5.03); Red Cell Distribution Width 20.5 % (13.2-15.2); White Blood Count 11.6 K/mm3 (4.5-11.0)
[2016-08-05 06:24] LABS: BUN/Creatinine Ratio 15.71; Blood Urea Nitrogen 11 mg/dL (7-17); Calcium 8.4 mg/dL (8.4-10.2); Carbon Dioxide 16 mmol/L (22-30); Chloride 105.3 mmol/L (98-107); Glucose 125 mg/dL (65-100); Sodium 139 mmol/L (137-145)
[2016-08-05 06:56] LABS: Anion Gap 23 mmol/L
[2016-08-05 06:57] LABS: Potassium 5.2 mmol/L (3.6-5.0)
[2016-08-05 07:35] LABS: Basophils % (Manual) 0 % (0.0-1.8); Blastocytes % (Manual) 0 %; Eosinophils % (Manual) 0 % (0.0-4.3)
[2016-08-05 07:36] LABS: Anisocytosis 1+; Burr Cells Few; Elliptocytes Rare; Hypochromasia 2+; Microcytosis 1+; Polychromasia Rare; Target Cells 1+; Tear Drop Cells Few
[2016-08-05 07:37] LABS: Diff Status Complete; Helmet Cells Rare
[2016-08-05] MEDS: MAGIC MOUTHWASH PO SCH ×3 (08:05→20:30)
[2016-08-05] MEDS: DUONEB 0.5 MG-3 MG/3 ML SOLN IH SCH ×3 (08:06→19:26)
[2016-08-05] MEDS ORDERED: K-DUR PO SCH (10:00)
[2016-08-05] MEDS: PEPCID PO SCH ×2 (11:06→22:08)
[2016-08-05] MEDS: ZITHROMAX 500 MG in NACL 0.9% 250ML 250 ML IV SCH (11:07)
--- NOTE | 2016-08-05 14:27 | Progress Note ---
Assessment and Plan Assessment and plan: Acute Asthma exacerbation Cont with albuterol /Atrovent nebulizes, Solu-Medrol and azithromycin Allergic reaction to Augmentin Patient with allergic reaction to Augmentin. Patient has some hives on her skin. Blisters on her forearms. 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 Cont with Solu-Medrol and Benadryl. Acute Exanthema HIV, RPR negative likely due to allergic reaction to augmentin Acute Sinusitis continue with azithromycin. Mucinex D. leukocytosis likely due to stress and steroid induced repeat level tomorrow Pharyngeal Dysphagia barium swallow study was abnormal no aspiration noted per speech eval, c/o pain on swallowing will place on magic mouth wash, place on GI soft diet Microcytic anemia No active bleeding, monitor H and H Check stool for occult blood, if positive consult GI Hypokalemia, replace and monitor New Issue is dysphagia: Consult GI, questionable EGD New issue of constipation: Order enema, soaps New Issue of drop in hematocrit: Repeat CBC a.m. History Interval history: Patient seen and examined. Follow up on dysphagia. Overnight uneventful. No cp, sob, n/v or severe headaches. Imaging, old records, testing, labs, nursing notes reviewed. Hospitalist Physical - Physical exam Narrative exam: GEN: WDWN, NAD, AWAKE, ALERT, ORIENTATED 3 NECK: SUPPLE, NO THYROMEGALY, NO JVD, NO LAD CVS: RRR, NORMAL S1S2 LUNGS/CHEST: CTA B, NORMAL CHEST EXPANSION B, GOOD AIR ENTRY B ABD: SOFT NTND, GBS, NO REBOUND OR GUARDING EXT/SKIN: NO SIGNIFICANT EDEMA OR RASH MSK: FROM X 4 EXTREMITIES NEURO: CN 2-12 GROSSLY INTACT, NO new FOCAL DEFICITS PSY: CALM - Constitutional Vitals: Temp Pulse Resp BP Pulse Ox 98.8 F 86 18 118/60 98 08/05/16 04:05 08/05/16 08:14 08/05/16 08:14 08/05/16 04:05 08/05/16 04:05 General appearance: Present: well-nourished Results - Labs CBC & Chem 7: 08/05/16 05:16 08/05/16 05:16 Labs: Laboratory Last Values WBC 11.6 K/mm3 (4.5-11.0) H 08/05/16 05:16 RBC 3.19 M/mm3 (3.65-5.03) L 08/05/16 05:16 Hgb 7.5 gm/dl (10.1-14.3) L 08/05/16 05:16 Hct 23.4 % (30.3-42.9) L 08/05/16 05:16 MCV 73 fl (79-97) L 08/05/16 05:16 MCH 24 pg (28-32) L 08/05/16 05:16 MCHC 32 % (30-34) 08/05/16 05:16 RDW 20.5 % (13.2-15.2) H 08/05/16 05:16 Plt Count 238 K/mm3 (140-440) 08/05/16 05:16 Lymph % (Auto) Not Reportable 08/02/16 10:04 [place] % (Auto) TNR 08/02/16 10:04 Eos % (Auto) TNR 08/02/16 10:04 Baso % (Auto) TNR 08/02/16 10:04 Lymph # TNR 08/02/16 10:04 [place] # TNR 08/02/16 10:04 Eos # TNR 08/02/16 10:04 Baso # TNR 08/02/16 10:04 Add Manual Diff Complete 08/05/16 05:16 Total Counted 100 08/05/16 05:16 Seg Neutrophils % TNR 08/02/16 10:04 Seg Neuts % (Manual) 51.0 % (40.0-70.0) 08/05/16 05:16 Band Neutrophils % 1.0 % 08/05/16 05:16 Lymphocytes % (Manual) 41.0 % (13.4-35.0) H 08/05/16 05:16 Reactive Lymphs % (Man) 0 % 08/05/16 05:16 Monocytes % (Manual) 7.0 % (0.0-7.3) 08/05/16 05:16 Eosinophils % (Manual) 0 % (0.0-4.3) 08/05/16 05:16 Basophils % (Manual) 0 % (0.0-1.8) 08/05/16 05:16 Metamyelocytes % 0 % 08/05/16 05:16 Myelocytes % 0 % 08/05/16 05:16 Promyelocytes % 0 % 08/05/16 05:16 Blast Cells % 0 % 08/05/16 05:16 Nucleated RBC % 3.0 % (0.0-0.9) H 08/05/16 05:16 Seg Neutrophils # TNR 08/02/16 10:04 Seg Neutrophils # Man 5.9 K/mm3 (1.8-7.7) 08/05/16 05:16 Band Neutrophils # 0.1 K/mm3 08/05/16 05:16 Lymphocytes # (Manual) 4.8 K/mm3 (1.2-5.4) 08/05/16 05:16 Abs React Lymphs (Man) 0.0 K/mm3 08/05/16 05:16 Monocytes # (Manual) 0.8 K/mm3 (0.0-0.8) 08/05/16 05:16 Eosinophils # (Manual) 0.0 K/mm3 (0.0-0.4) 08/05/16 05:16 Basophils # (Manual) 0.0 K/mm3 (0.0-0.1) 08/05/16 05:16 Metamyelocytes # 0.0 K/mm3 08/05/16 05:16 Myelocytes # 0.0 K/mm3 08/05/16 05:16 Promyelocytes # 0.0 K/mm3 08/05/16 05:16 Blast Cells # 0.0 K/mm3 08/05/16 05:16 WBC Morphology Not Reportable 08/05/16 05:16 Hypersegmented Neuts Not Reportable 08/05/16 05:16 Hyposegmented Neuts Not Reportable 08/05/16 05:16 Hypogranular Neuts Not Reportable 08/05/16 05:16 Smudge Cells Not Reportable 08/05/16 05:16 Toxic Granulation Not Reportable 08/05/16 05:16 Toxic Vacuolation Not Reportable 08/05/16 05:16 Dohle Bodies Not Reportable 08/05/16 05:16 Pelger-Huet Anomaly Not Reportable 08/05/16 05:16 Mandeep Rods Not Reportable 08/05/16 05:16 Platelet Estimate Appears normal 08/05/16 05:16 Clumped Platelets Not Reportable 08/05/16 05:16 Plt Clumps, EDTA Not Reportable 08/05/16 05:16 Large Platelets Not Reportable 08/05/16 05:16 Giant Platelets Not Reportable 08/05/16 05:16 Platelet Satelliting Not Reportable 08/05/16 05:16 Plt Morphology Comment Not Reportable 08/05/16 05:16 RBC Morphology Not Reportable 08/05/16 05:16 Dimorphic RBCs Not Reportable 08/05/16 05:16 Polychromasia Rare 08/05/16 05:16 Hypochromasia 2+ 08/05/16 05:16 Poikilocytosis Not Reportable 08/05/16 05:16 Anisocytosis 1+ 08/05/16 05:16 Microcytosis 1+ 08/05/16 05:16 Macrocytosis Not Reportable 08/05/16 05:16 Spherocytes Not Reportable 08/05/16 05:16 Pappenheimer Bodies Not Reportable 08/05/16 05:16 Sickle Cells Not Reportable 08/05/16 05:16 Target Cells 1+ 08/05/16 05:16 Tear Drop Cells Few 08/05/16 05:16 Ovalocytes Not Reportable 08/05/16 05:16 Helmet Cells Rare 08/05/16 05:16 Whitfield-Medicine Bow Bodies Not Reportable 08/05/16 05:16 Guttenberg Rings Not Reportable 08/05/16 05:16 Caitie Cells Few 08/05/16 05:16 Bite Cells Not Reportable 08/05/16 05:16 Crenated Cell Not Reportable 08/05/16 05:16 Elliptocytes Rare 08/05/16 05:16 Acanthocytes (Spur) Not Reportable 08/05/16 05:16 Rouleaux Not Reportable 08/05/16 05:16 Hemoglobin C Crystals Not Reportable 08/05/16 05:16 Schistocytes Not Reportable 08/05/16 05:16 Malaria parasites Not Reportable 08/05/16 05:16 Surinder Bodies Not Reportable 08/05/16 05:16 Hem Pathologist Commnt No 08/05/16 05:16 PT 17.2 Sec. (12.2-14.9) H 08/01/16 02:45 INR 1.41 (0.87-1.13) H 08/01/16 02:45 APTT 33.0 Sec. (24.2-36.6) 08/01/16 02:45 Sodium 139 mmol/L (137-145) 08/05/16 05:16 Potassium 5.2 mmol/L (3.6-5.0) H D 08/05/16 05:16 Chloride 105.3 mmol/L (98-107) 08/05/16 05:16 Carbon Dioxide 16 mmol/L (22-30) L 08/05/16 05:16 Anion Gap 23 mmol/L 08/05/16 05:16 BUN 11 mg/dL (7-17) 08/05/16 05:16 Creatinine 0.7 mg/dL (0.7-1.2) 08/05/16 05:16 Estimated GFR > 60 ml/min 08/05/16 05:16 BUN/Creatinine Ratio 15.71 % 08/05/16 05:16 Glucose 125 mg/dL (65-100) H 08/05/16 05:16 Calcium 8.4 mg/dL (8.4-10.2) 08/05/16 05:16 Iron 54 ug/dL (37-170) 08/04/16 17:02 TIBC 380.80 mcg/dL (250-450) 08/04/16 17:02 Transferrin 272 mg/dl (192-382) 08/04/16 17:02 Ferritin 145.3 ng/mL (13.0-400.0) 08/04/16 17:02 Total Bilirubin 0.4 mg/dL (0.1-1.2) 08/04/16 17:02 Direct Bilirubin 0.2 mg/dL (0-0.2) 08/04/16 17:02 Indirect Bilirubin 0.2 mg/dL 08/04/16 17:02 AST 407 units/L (5-40) H 08/04/16 17:02 ALT 1863 units/L (7-56) H 08/04/16 17:02 Alkaline Phosphatase 92 units/L (35-129) 08/04/16 17:02 Total Protein 6.8 g/dL (6.3-8.2) 08/04/16 17:02 Albumin 3.6 g/dL (3.9-5) L 08/04/16 17:02 Albumin/Globulin Ratio 1.1 % 08/04/16 17:02 Vitamin B12 > 2000 pg/mL (211-911) H 08/04/16 17:02 Folate 17.53 ng/mL (7.3-26.0) 08/04/16 17:02 RPR Nonreactive (Nonreactive) 08/01/16 17:06 HIV 1&2 Antibody Rapid Non react (Non React) 08/01/16 17:06 HIV P24 Antigen Non react (Non React) 08/01/16 17:06
--- NOTE | 2016-08-05 16:08 | Consultation ---
History of Present Illness - Reason for Consult Consult date: 08/05/16 Anemia, odynophagia - History of Present Illness See Dictation Past History Past Medical History: denies: acute SC, arrhythmia, anemia, cancer, COPD, DVT, ESRD, GERD, hypothyroidism, migraines, PVD, pulmonary embolism, seizures, stroke Past Surgical History: denies: No surgical history, appendectomy, abd. aortic aneurysm repair, arthroscopy, valve replacement Social history: no significant social history, full code. denies: smoking, alcohol abuse, prescription drug abuse, IV drug use, AND/DNR-allow natural Family history: no significant family history Medications and Allergies Allergies Allergy/AdvReac Type Severity Reaction Status Date / Time amoxicillin Allergy Swelling Verified 08/01/16 03:07 Home Medications Medication Instructions Recorded Confirmed Last Taken Type Azithromycin [Zithromax Z-TRAY] 250 mg PO DAILY #6 tab 07/30/16 08/01/16 1 Day Ago Rx predniSONE [Deltasone] 20 mg PO QDAY #5 tab 07/30/16 08/01/16 1 Day Ago Rx Active Meds: Active Medications Acetaminophen (Tylenol) 650 mg PO Q4H PRN PRN Reason: Pain MILD(1-3)/Fever >100.5/ALFONSO Last Admin: 08/04/16 00:42 Dose: 650 mg Albuterol (Proventil) 2.5 mg IH Q4HRT PRN PRN Reason: Shortness Of Breath Albuterol/Ipratropium (Duoneb 0.5 Mg-3 Mg/3 Ml Soln) 1 ampul IH TIDRT [facility] Last Admin: 08/05/16 14:25 Dose: 1 ampul Benzocaine/Menthol (Cepacol X Strength) 1 each MM Q2H PRN PRN Reason: Sore Throat Bisacodyl (Dulcolax) 10 mg SD QDAY PRN PRN Reason: Constipation unrelieved by MOM Diphenhydramine HCl (Benadryl) 25 mg IV Q6H [facility] Last Admin: 08/05/16 11:08 Dose: 25 mg Famotidine (Pepcid) 20 mg PO BID [facility] Last Admin: 08/05/16 11:06 Dose: 20 mg Azithromycin 500 mg/ Sodium (Chloride) 250 mls @ 250 mls/hr IV Q24HR [facility] Last Admin: 08/05/16 11:07 Dose: 250 mls/hr Lidocaine HCl (Magic Mouthwash) 15 ml PO TID [facility] Last Admin: 08/05/16 14:08 Dose: 15 ml Lorazepam (Ativan) 1 mg IV Q4H PRN PRN Reason: Seizures Last Admin: 08/04/16 05:25 Dose: 1 mg Magnesium Hydroxide (Milk Of Magnesia) 30 ml PO Q4H PRN PRN Reason: Constipation Methylprednisolone Sodium Succinate (Solu-Medrol) 40 mg IV Q24HR [facility] Last Admin: 08/05/16 11:06 Dose: 40 mg Morphine Sulfate (Morphine) 2 mg IV Q4H PRN PRN Reason: Pain, Moderate (4-6) Last Admin: 08/04/16 22:29 Dose: 2 mg Ondansetron HCl (Zofran) 4 mg IV Q8H PRN PRN Reason: N/V unrelieved by Reglan Phenol (Chloraseptic) 1 spray MM PRN PRN PRN Reason: Sore Throat Exam - Constitutional Vitals: Temp Pulse Resp BP Pulse Ox 98.8 F 88 18 118/60 98 08/05/16 04:05 08/05/16 14:35 08/05/16 14:35 08/05/16 04:05 08/05/16 04:05 Results - Labs CBC & Chem 7: 08/05/16 05:16 08/05/16 05:16 Labs: Abnormal lab results 08/04/16 08/04/16 08/05/16 Range/Units 17:02 17:02 05:16 WBC 11.6 H (4.5-11.0) K/mm3 RBC 3.19 L (3.65-5.03) M/mm3 Hgb 7.5 L (10.1-14.3) gm/dl Hct 23.4 L (30.3-42.9) % MCV 73 L (79-97) fl MCH 24 L (28-32) pg RDW 20.5 H (13.2-15.2) % Lymphocytes % (Manual) 41.0 H (13.4-35.0) % Nucleated RBC % 3.0 H (0.0-0.9) % Potassium (3.6-5.0) mmol/L Carbon Dioxide (22-30) mmol/L Glucose (65-100) mg/dL AST 407 H (5-40) units/L ALT 1863 H (7-56) units/L Albumin 3.6 L (3.9-5) g/dL Vitamin B12 > 2000 H (211-911) pg/mL 08/05/16 Range/Units 05:16 WBC (4.5-11.0) K/mm3 RBC (3.65-5.03) M/mm3 Hgb (10.1-14.3) gm/dl Hct (30.3-42.9) % MCV (79-97) fl MCH (28-32) pg RDW (13.2-15.2) % Lymphocytes % (Manual) (13.4-35.0) % Nucleated RBC % (0.0-0.9) % Potassium 5.2 H D (3.6-5.0) mmol/L Carbon Dioxide 16 L (22-30) mmol/L Glucose 125 H (65-100) mg/dL AST (5-40) units/L ALT (7-56) units/L Albumin (3.9-5) g/dL Vitamin B12 (211-911) pg/mL Assessment and Plan 1. Odynophagia - primarily with throat pain, and Nina in oropharynx. 2. Microcytic anemia - pt has hx sickle cell trait, and lifelong hx of anemia. Transfused 1x in 10/2015 in [place]. Rec - Diflucan - Possible ENT evaluation for throat - outpatient f/u with GI subsequently. Will sign off. Thanks.
[2016-08-05] MEDS ORDERED: DIFLUCAN/NS 100 MG/50 ML 100 MG/50 ML BAG IV SCH (18:00)
[2016-08-06] MEDS: MORPHINE IV PRN ×3 (00:11→10:10)
--- NOTE | 2016-08-06 01:21 | Consultation ---
REFERRING PHYSICIAN: Abe Zaman MD REASON FOR CONSULTATION: Odynophagia and anemia. HISTORY OF PRESENT ILLNESS: The patient is a 46-year-old woman with a history of sickle cell trait as well as asthma who was admitted because of complaints of sinusitis on 07/30/2016 with medications which may have caused some degree of throat swelling. She was admitted on 08/01/2016 with complaints of throat swelling as well as pain on swallowing, primarily in her throat. She had a modified barium swallow, which showed no aspiration on 08/04/2016. She was also found to be anemic with hemoglobin of 7.5 and an MCV of 73 with normal iron studies. GI consultation was obtained for further evaluation. The patient states she has a lifelong history of anemia with sickle cell trait and has only been transfused once in her life, in 10/2015 in [place], [place]. She has bowel movements that are regular every 2-3 days without any change. There has been no gardenia GI bleeding. She does have lifelong history of GERD with heartburn on almost daily basis for which she drinks warm salt water. She denies dysphagia in the past. Currently, she complains of neck pain, especially in the right side of her neck and throat, and pain on swallowing, primarily in her mouth and throat. There is no chest pain associated with this. ALLERGIES: She has an allergy to penicillin. MEDICATIONS: At home, she was on no medications except for the azithromycin and prednisone started recently for sinusitis. PAST SURGICAL HISTORY: She has no surgical history. PAST MEDICAL HISTORY: She has history of; 1. Asthma. 2. Sickle cell trait. FAMILY HISTORY: Noncontributory. Negative for colon cancer. SOCIAL HISTORY: She is . They moved from [place] after her retired. She smokes less than half a pack per day. She denies ethanol. REVIEW OF SYSTEMS: Negative for weight loss, cough, hemoptysis, dysuria, hematuria, fevers, chills, or sweats. PHYSICAL EXAMINATION: GENERAL: This is a well-developed, well-nourished, middle-aged black female lying in bed in no apparent distress. VITAL SIGNS: Temperature is 98.8, pulse 88, blood pressure is 118/60. HEENT: She is anicteric. Pupils are round and reactive. Oropharynx shows white plaques on tongue and on sides of mouth consistent with thrush. NECK: Moderately tender, especially on the right side. There is no swelling noted. No adenopathy is noted. LUNGS: Clear bilaterally to auscultation. CARDIOVASCULAR: Regular with no extra heart sounds. ABDOMEN: Soft, good bowel sounds, no organomegaly or tenderness to deep palpation. RECTAL: Deferred. EXTREMITIES: Reveal no cyanosis, clubbing, or edema. NEUROLOGIC: She is alert, oriented x 3 and grossly nonfocal. LABORATORY DATA: White count is 11.6, hemoglobin 7.5, hematocrit , MCV of 73, platelet count is 238,000. Iron is 54, TIBC is 380. Please note that her hemoglobin in 05/2016 was 9.8 as well. Her sodium is 139, potassium 5.2, chloride 105, bicarbonate 16, BUN 11, creatinine 0.7, glucose 125. AST is 407, ALT is 1863, alkaline phosphatase is 92, and total bilirubin is 0.4. Albumin is 3.6. IMPRESSION: 1. Anemia -- the patient has microcytic anemia and this is a lifelong problem with the sickle cell trait. It is unclear whether her current level of anemia is any worse than usual. There is no evidence of GI bleeding. However, given her age, we will do a colonoscopy as a screening on an outpatient basis. 2. Gastroesophageal reflux disease-- on no medications at home. She should be on a PPI or H2 angela at discharge and we can follow this up with an upper endoscopy to screen for Jennings's. 3. Odynophagia-- this is secondary to thrush. Diflucan has been started today. ENT evaluation may be appropriate given the neck tenderness. 4. Hepatitis -- the patient has elevated transaminases noted today. She has no history of liver disease. This may represent a viral process or an acute toxic injury. We will check hepatitis serologies and we will recheck liver enzymes tomorrow. HIV serologies are negative. JOB# [id number] HRC/NTS
[2016-08-06 01:24] LABS: Albumin 3.3 g/dL (3.9-5); Albumin/Globulin Ratio 1.1 %; Alkaline Phosphatase 82 units/L (35-129); Anion Gap 19 mmol/L; BUN/Creatinine Ratio 12.85; Bilirubin,Total 0.4 mg/dL (0.1-1.2); Blood Urea Nitrogen 9 mg/dL (7-17); Calcium 8.2 mg/dL (8.4-10.2); Carbon Dioxide 19 mmol/L (22-30); Chloride 101.3 mmol/L (98-107); Glucose 91 mg/dL (65-100); Sodium 136 mmol/L (137-145); Total Protein 6.3 g/dL (6.3-8.2)
[2016-08-06 01:25] LABS: Potassium 3.5 mmol/L (3.6-5.0)
[2016-08-06 01:45] LABS: Alanine Aminotransferase 1148 units/L (7-56)
[2016-08-06 06:11] LABS: Hematocrit 23.9 % (30.3-42.9); Hemoglobin 7.9 gm/dl (10.1-14.3); Mean Corpuscular HGB Conc 33 % (30-34); Mean Corpuscular Volume 72 fl (79-97); Platelet Count 245 K/mm3 (140-440); White Blood Count 9.7 K/mm3 (4.5-11.0)
[2016-08-06 06:12] LABS: Anion Gap 20 mmol/L; BUN/Creatinine Ratio 11.42; Blood Urea Nitrogen 8 mg/dL (7-17); Calcium 8.1 mg/dL (8.4-10.2); Carbon Dioxide 20 mmol/L (22-30); Chloride 105.9 mmol/L (98-107); Glucose 89 mg/dL (65-100); Potassium 3.6 mmol/L (3.6-5.0); Sodium 142 mmol/L (137-145)
[2016-08-06 06:16] LABS: Mean Corpuscular Hemoglobin 24 pg (28-32); Red Cell Distribution Width 20.2 % (13.2-15.2)
[2016-08-06] MEDS: BENADRYL IV SCH (06:19)
[2016-08-06] MEDS: DUONEB 0.5 MG-3 MG/3 ML SOLN IH SCH (07:16)
[2016-08-06 09:06] VITALS: BP 93/50
[2016-08-06] MEDS: PEPCID PO SCH (10:10)
[2016-08-06] MEDS: MAGIC MOUTHWASH PO SCH (10:39)
--- NOTE | 2016-08-06 11:51 | Discharge Summary ---
Providers - Providers Date of Admission: 08/01/16 04:12 Date of discharge: 08/06/16 Attending physician: JAMES LARRY 08/02/16 13:50 Speech Therapy Evaluation and Treat [CONS] Routine Reason For Exam: pt c/o chocking 08/05/16 07:54 Consult to Physician [CONS] Routine Consulting Provider: FATOUMATA GRANADOS Reason For Exam: dysphagia and anemia Place consult to:: Jj Granados MD Notified:: office Phone number called:: [phone] Was contact made?: Yes If yes, spoke with:: darian Time called:: 09:00 Primary care physician: EDGE STRIPPER Hospitalization Condition: Stable Hospital course: Acute Asthma exacerbation Cont with albuterol /Atrovent nebulizes, Solu-Medrol and azithromycin Allergic reaction to Augmentin Patient with allergic reaction to Augmentin. Patient has some hives on her skin. Blisters on her forearms. 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 Cont with Solu-Medrol and Benadryl. Acute Exanthema HIV, RPR negative likely due to allergic reaction to augmentin Acute Sinusitis finished azithromycin. Mucinex D. leukocytosis likely due to stress and steroid induced repeat level tomorrow Pharyngeal Dysphagia barium swallow study was abnormal no aspiration noted per speech eval, c/o pain on swallowing will place on magic mouth wash, place on GI soft diet Microcytic anemia No active bleeding, monitor H and H Check stool for occult blood, if positive consult GI Hypokalemia, replace and monitor New Issue is dysphagia: Consult GI, questionable EGD==>no EGD inpatient, patient has op yanely infection aka thrush New issue of constipation: Order enema, soaps New Issue of drop in hematocrit: Repeat CBC a.m.= stable Disposition: DISCHARGED TO HOME OR SELFCARE Time spent for discharge: 31 minutes Core Measure Documentation - Palliative Care Palliative Care/ Comfort Measures: Not Applicable - Core Measures Any of the following diagnoses?: none - VTE Discharge Requirements Deep Vein Thrombosis/Pulmonary Embolism Present on Admission: No Has pt received <5 days of overlap therapy or INR<2.0: No Anticoagulant overlap therapy prescribed at discharge: No Contraindication No Overlap Therapy order at DC: Not Indicated Exam - Physical Exam Narrative exam: GEN: WDWN, NAD, AWAKE, ALERT, ORIENTATED 3 NECK: SUPPLE, NO THYROMEGALY, NO JVD, NO LAD CVS: RRR, NORMAL S1S2 LUNGS/CHEST: CTA B, NORMAL CHEST EXPANSION B, GOOD AIR ENTRY B ABD: SOFT NTND, GBS, NO REBOUND OR GUARDING EXT/SKIN: NO SIGNIFICANT EDEMA OR RASH MSK: FROM X 4 EXTREMITIES NEURO: CN 2-12 GROSSLY INTACT, NO new FOCAL DEFICITS PSY: CALM - Constitutional Vitals: Temp Pulse Resp BP Pulse Ox 98.7 F 107 H 18 93/50 96 08/06/16 08:00 08/06/16 08:00 08/06/16 08:00 08/06/16 08:00 08/06/16 08:04 Plan Activity: advance as tolerated (no strenous acitivity until cleared by pcp), other Diet: regular Additional Instructions: if no Pcp, call [facility] [phone] Follow up with: PRIMARY CARE, [Primary Care Provider] - 3-5 Days Prescriptions: Fluconazole [Diflucan TAB] 100 mg PO QDAY #14 tablet Ipratropium/Albuter (Nf) [Combivent (Nf)] 2 puff IH TID #1 inha methylPREDNISolone [Medrol Dose Jun] 1 mg PO DAILY #1 pack
== END 2016-08-06 12:31 | disposition home or self-care (01) | DRG 607 ==
LOC: ED 01:56 → 4A 04:12
PROVIDERS: ADMIT Internal Medicine; ATTEND Internal Medicine
DX: L50.0 Allergic urticaria (principal); J45.901 Unspecified asthma with (acute) exacerbation; S50.822A Blister (nonthermal) of left forearm, initial encounter; S50.821A Blister (nonthermal) of right forearm, initial encounter; T36.0X5A Adverse effect of penicillins, initial encounter; X58.XXXA Exposure to other specified factors, initial encounter; J01.90 Acute sinusitis, unspecified; D72.829 Elevated white blood cell count, unspecified; R13.13 Dysphagia, pharyngeal phase; R13.12 Dysphagia, oropharyngeal phase; D50.9 Iron deficiency anemia, unspecified; E87.6 Hypokalemia; K21.9 Gastro-esophageal reflux disease without esophagitis; K75.9 Inflammatory liver disease, unspecified; Y92.89 Other specified places as the place of occurrence of the external cause; Z88.1 Allergy status to other antibiotic agents; Z88.0 Allergy status to penicillin; Y93.89 Activity, other specified; Y99.8 Other external cause status
CPT/HCPCS: 36415; 71010; 74230; 80048; 80053; 80074; 82607; 82728; 82747; 83550; 84466; 85007; 85025; 85027; 85610; 85730; 86592; 87040; 87806; 94640; 96374; 96375; 99406; J0456; J1200; J1450; J1650; J2060; J2270; J2405; J2920; J2930; J3480; J7030; J7050

== ENCOUNTER 2016-09-25 16:12 | Emergency (ER) | payer SELFPAY ==
[2016-09-25] MEDS ORDERED: NORCO 5/325 PO ONE (20:09)
[2016-09-25] MEDS ORDERED: TORADOL IM ONE (20:09)
[2016-09-25 21:32] VITALS: BP 134/99
--- NOTE | 2016-09-26 05:39 | Emergency Department Report ---
Entered by ADINA WILKERSON, acting as scribe for GUICHO MILLER PA. - General Chief Complaint: Skin/Abscess/Foreign Body Stated Complaint: RIGHT FOOT INFECTED Source: patient Mode of arrival: Ambulatory Limitations: No Limitations - History of Present Illness Initial Comments: 46 year old female with a PMHx of asthma presents to the ED c/o a wound on her right lateral hallux that began 2 weeks ago. Patient states that she was seen at [facility] on 09/08/2016 for a wound on right lateral hallux with associated right foot pain. She was prescribed clindamycin antibiotics. Rates pain a 10/10 in severity, and describes the pain as sharp and throbbing in quality. Associated symptoms include minimal greenish-yellow drainage from wound and nausea, but she denies fever, chills, chest pain, abdominal, SOB, and vomiting. In the ED, there currently no active purulent drainage from wound. Uses tobacco products daily. Notes allergy to amoxicillin. Onset/Timin -: week(s) Location: other (right lateral hallux) Extremity Location: Right: Foot (right lateral hallux) Place: home Associated Symptoms: pain (right foot), other (greenish-yellow drainage, but currently no active purulent drainage). denies: loss of feeling/numbness, unable to move injured part, weakness followed by dizziness, nausea/vomiting, fever Treatments Prior to Arrival: other (clindamycin antibiotics and warm compresses) - Related Data Previous Rx's Medication Instructions Recorded Last Taken Type Fluconazole [Diflucan TAB] 100 mg PO QDAY #14 tablet 08/06/16 Unknown Rx Ipratropium/Albuter (Nf) 2 puff IH TID #1 inha 08/06/16 Unknown Rx [Combivent (Nf)] methylPREDNISolone [Medrol Dose 1 mg PO DAILY #1 pack 08/06/16 Unknown Rx Jun] Acetaminophen/Codeine [Tylenol 1 tab PO Q6H PRN #20 tab 09/25/16 Unknown Rx /Codeine # 3 tab] Allergies Allergy/AdvReac Type Severity Reaction Status Date / Time amoxicillin Allergy Swelling Verified 08/01/16 03:07 ED Review of Systems Comment: All other systems reviewed and negative Constitutional: denies: chills, fever, weakness (generalized), other (tingling) Respiratory: denies: orthopnea, shortness of breath, SOB with exertion, SOB at rest Cardiovascular: denies: chest pain, dyspnea on exertion, orthopnea Gastrointestinal: denies: abdominal pain, nausea, vomiting Skin: other (wound on right lateral hallux and no purulent drainage from wound) . denies: rash Neurological: denies: numbness ED Past Medical Hx - Past Medical History Previous Medical History?: Yes Hx Asthma: Yes - Surgical History Past Surgical History?: No - Social History Smoking Status: Current Every Day Smoker Substance Use Type: Alcohol, Prescribed - Medications Home Medications: Home Medications Medication Instructions Recorded Confirmed Last Taken Type Fluconazole [Diflucan TAB] 100 mg PO QDAY #14 tablet 08/06/16 Unknown Rx Ipratropium/Albuter (Nf) 2 puff IH TID #1 inha 08/06/16 Unknown Rx [Combivent (Nf)] methylPREDNISolone [Medrol Dose 1 mg PO DAILY #1 pack 08/06/16 Unknown Rx Jun] Acetaminophen/Codeine [Tylenol 1 tab PO Q6H PRN #20 tab 09/25/16 Unknown Rx /Codeine # 3 tab] ED Physical Exam - General Limitations: No Limitations General appearance: alert, in no apparent distress - Head Head exam: Present: atraumatic, normocephalic - Eye Eye exam: Present: normal appearance, EOMI Pupils: Present: normal accommodation - ENT ENT exam: Present: normal exam, mucous membranes moist - Neck Neck exam: Present: normal inspection, full ROM - Respiratory Respiratory exam: Present: normal lung sounds bilaterally. Absent: respiratory distress, wheezes, rales, rhonchi, stridor - Cardiovascular Cardiovascular Exam: Present: regular rate, normal rhythm. Absent: systolic murmur, diastolic murmur, rubs, gallop - Extremities Exam Extremities exam: Present: normal inspection, full ROM, tenderness (around affected area on right lateral hallux), normal capillary refill, other (no active purulent drainage from wound on right lateral hallux). Absent: pedal edema, joint swelling - Expanded Lower Extremity Exam Right Hip exam: Present: normal inspection, full ROM. Absent: tenderness Upper Leg exam: Present: normal inspection, full ROM. Absent: tenderness Knee exam: Present: normal inspection, full ROM. Absent: tenderness Lower Leg exam: Present: normal inspection, full ROM. Absent: tenderness Ankle exam: Present: normal inspection, full ROM. Absent: tenderness Foot/Toe exam: Present: normal inspection, full ROM, tenderness (around wound on right lateral hallux). Absent: swelling, abrasion, laceration, ecchymosis, deformity, erythema, foreign body Neuro vascular tendon exam: Present: no vascular compromise. Absent: pulse deficit, abnormal cap refill, motor deficit, sensory deficit, tendon deficit Gait: Positive: observed and normal - Back Exam Back exam: Present: normal inspection, full ROM - Neurological Exam Neurological exam: Present: alert, oriented X3 - Psychiatric Psychiatric exam: Present: normal affect, normal mood - Skin Skin exam: Present: warm, dry, intact, other (wound on right lateral hallux). Absent: rash, erythema (right lateral hallux) ED Course Vital Signs 09/25/16 09/25/16 16:21 20:22 Temperature 98.7 F Pulse Rate 94 H Respiratory 22 20 Rate Blood Pressure 99/65 O2 Sat by Pulse 100 Oximetry ED Medical Decision Making - Lab Data Vital Signs 09/25/16 09/25/16 16:21 20:22 Temperature 98.7 F Pulse Rate 94 H Respiratory 22 20 Rate Blood Pressure 99/65 O2 Sat by Pulse 100 Oximetry - Medical Decision Making 46-year-old female presents today with ulcer to her right foot. No signs of infection noted. A dressing has been applied to the wound. Patient has been provided with a referral for wound care clinic and surgery. Patient is in no acute distress at this time. She will be discharged home and is encouraged to follow up with a primary care provider. She will be sent home on Tylenol 3 and is encouraged to return to the emergency room for any worsening symptoms. ED Disposition Clinical Impression: Ulcer of foot Qualifiers: Laterality: right Non-pressure ulcer stage: with fat layer exposed Qualified Code(s): L97.512 - Non-pressure chronic ulcer of other part of right foot with fat layer exposed Disposition: DISCHARGED TO HOME OR SELFCARE Is pt being admited?: No Does the pt Need Aspirin: No Condition: Stable Instructions: Pressure Ulcer (ED), Acute Wound Care (ED) Additional Instructions: Follow-up with surgeon or go to her specialist. Return to the emergency department if symptoms worsen. Prescriptions: Acetaminophen/Codeine [Tylenol /Codeine # 3 tab] 1 tab PO Q6H PRN #20 tab PRN Reason: Pain Referrals: PRIMARY CARE, [Primary Care Provider] - 3-5 Days DEJA LINARES MD [Staff Physician] - 3-5 Days [facility] [Outside] - 3-5 Days Forms: Work/School Release Form(ED) Time of Disposition: 20:59 This documentation as recorded by the [employer]OCK ortiz JASMINE,accurately reflects the service I personally performed and the decisions made by ,GUICHO MILLER PA.
== END 2016-09-25 21:36 | disposition home or self-care (01) ==
LOC: ED 16:12
DX: L97.512 Non-pressure chronic ulcer of other part of right foot with fat layer exposed (principal); J45.909 Unspecified asthma, uncomplicated; F17.200 Nicotine dependence, unspecified, uncomplicated; Z88.1 Allergy status to other antibiotic agents
CPT/HCPCS: 96372; 99282; J1885

== ENCOUNTER 2018-03-29 05:34 | Emergency (ER) | payer SELFPAY ==
[2018-03-29] MEDS ORDERED: PEPCID IV ONE (08:54)
[2018-03-29] MEDS ORDERED: BANOPHEN PO ONE (08:54)
[2018-03-29] MEDS ORDERED: NACL 0.9% 500 ML 500 ML IV ONE (08:54)
[2018-03-29] MEDS ORDERED: SOLU-Medrol IV ONE (08:55)
--- NOTE | 2018-03-29 08:56 | Emergency Department Report ---
ED Allergic Reaction HPI - General Chief complaint: Allergic Reaction Stated complaint: ALLERGIC REACTION Time Seen by Provider: 03/29/18 08:48 Source: patient Mode of arrival: Ambulatory Limitations: Language Barrier - History of Present Illness Initial Comments: PT TO ER W REPORTS OF ACUTE SWELLING B HANDS STARTED LAST PM [facility] INTACT SHE DOES NOT KNOW OF ANYTHING SHE ATE OR TOOK THAT PRECIPITATED THIS SHE TOOK MOTRIN AFTER IT HAPPENED SHE WAS WORKING IN [employer] AND COULD HAVE GOTTEN AN INSECT BITE. SHE DOES HAVE WHAT APPEARS TO BE ANT BITES ON HER HANDS BUT THE SWELLING IS NOT WHERE BITES ARE LOCATED THE SWELLING RESEMBLES RA NODULES BUT SHE DENIED THIS AT FIRST. THEN AFTER PROBING FURTHER SHE ADMITTED TO HAVING PRIOR SWELLING OF JOINTS OF R HAND FROM A TRAUMA SHE IS REPETITIVE IN WANTING PAIN MEDS ALLERGY TO TORADOL ABC INTACT VSS NO OTHER COMPLAINTS MD Complaint: allergic reaction -: Gradual, days(s) (1) Symptoms: rash, itching, other (bilateral hand swelling). denies: facial swelling, lip swelling, difficulty swallowing, difficulty breathing, orolingual swelling, hoarseness, syncopy, dizziness, nausea, vomiting, abdominal pain ( bilateral hand swelling) Severity: moderate Treatment Prior to Arrival: none Previous Allergy History: none - Related Data Previous Rx's Medication Instructions Recorded Last Taken Type Fluconazole [Diflucan TAB] 100 mg PO QDAY #14 tablet 08/06/16 Unknown Rx Ipratropium/Albuter (Nf) 2 puff IH TID #1 inha 08/06/16 Unknown Rx [Combivent (Nf)] Cetirizine HCl [Zyrtec] 10 mg PO DAILY #10 tablet 03/29/18 Unknown Rx predniSONE [Deltasone] 50 mg PO QDAY #5 tab 03/29/18 Unknown Rx Allergies Allergy/AdvReac Type Severity Reaction Status Date / Time amoxicillin Allergy Swelling Verified 03/29/18 07:25 ED Review of Systems ROS: Stated complaint: ALLERGIC REACTION Other details as noted in HPI Comment: All other systems reviewed and negative Constitutional: denies: chills Eyes: denies: eye pain ENT: denies: ear pain, throat pain, dental pain Respiratory: denies: cough, orthopnea, shortness of breath Cardiovascular: denies: chest pain, palpitations Endocrine: see HPI. denies: intolerance to cold Gastrointestinal: denies: abdominal pain, vomiting Genitourinary: denies: urgency Musculoskeletal: joint swelling. denies: back pain Skin: as per HPI, rash Neurological: denies: headache (bilateral hand swelling), weakness Psychiatric: anxiety (tearful on exam). denies: depression Hematological/Lymphatic: denies: easy bleeding ED Past Medical Hx - Past Medical History Hx Asthma: Yes - Surgical History Past Surgical History?: No - Family History Family history: no significant - Social History Smoking Status: Never Smoker Substance Use Type: None - Medications Home Medications: Home Medications Medication Instructions Recorded Confirmed Last Taken Type Fluconazole [Diflucan TAB] 100 mg PO QDAY #14 tablet 08/06/16 Unknown Rx Ipratropium/Albuter (Nf) 2 puff IH TID #1 inha 08/06/16 Unknown Rx [Combivent (Nf)] Cetirizine HCl [Zyrtec] 10 mg PO DAILY #10 tablet 03/29/18 Unknown Rx predniSONE [Deltasone] 50 mg PO QDAY #5 tab 03/29/18 Unknown Rx ED Physical Exam - General Limitations: Language Barrier General appearance: alert, anxious - Head Head exam: Present: atraumatic - Eye Eye exam: Present: normal appearance, PERRL Pupils: Present: normal accommodation - ENT ENT exam: Present: normal exam, normal orophraynx, mucous membranes moist, TM's normal bilaterally, normal external ear exam. Absent: mucous membranes dry - Neck Neck exam: Present: normal inspection. Absent: tenderness, meningismus - Respiratory Respiratory exam: Present: normal lung sounds bilaterally. Absent: respiratory distress, wheezes, chest wall tenderness - Cardiovascular Cardiovascular Exam: Present: regular rate - GI/Abdominal GI/Abdominal exam: Present: soft, normal bowel sounds - Rectal Rectal exam: Present: deferred - Extremities Exam Extremities exam: Present: normal inspection - Expanded Upper Extremity Exam Left Shoulder Exam: Present: normal inspection Upper Arm exam: Present: normal inspection Elbow exam: Present: normal inspection Forearm Wrist exam: Present: normal inspection Hand Wrist exam: Present: full ROM, swelling, erythema, other (INSECT BITE). Absent: tenderness, abrasion, laceration, ecchymosis, deformity, crepidus, dislocation, amputation, nail avulsion, subungual hematoma Neuro motor exam: Present: wrist extension intact, thumb opposition intact Neurosensory exam: Present: radial nerve intact, ulnar nerve intact, median nerve intact Vascular: Present: normal capillary refill, radial pulse, brachial pulse, ulnar pulse Right Shoulder Exam: Present: normal inspection Upper Arm exam: Present: normal inspection Elbow exam: Present: normal inspection Forearm Wrist exam: Present: normal inspection Hand Wrist exam: Present: full ROM, swelling, erythema, other (INSECT BITE). Absent: tenderness, abrasion, laceration, ecchymosis, deformity, crepidus, dislocation, amputation, nail avulsion, subungual hematoma Vascular: Present: normal capillary refill, radial pulse, brachial pulse, ulnar pulse - Back Exam Back exam: Present: normal inspection, full ROM. Absent: tenderness - Neurological Exam Neurological exam: Present: alert, oriented X3, CN II-XII intact, normal gait, reflexes normal - Psychiatric Psychiatric exam: Present: normal affect, normal mood, anxious - Skin Skin exam: Present: warm, dry, other (b hand swelling. denies rheumatoid; recurrently asking for pain med; allergy to toradol). Absent: rash ED Course Vital Signs 03/29/18 03/29/18 03/29/18 05:51 07:25 09:41 Temperature 98.2 F 98.2 F Pulse Rate 92 H 92 H Respiratory 18 18 16 Rate Blood Pressure 126/73 126/73 O2 Sat by Pulse 100 100 Oximetry ED Medical Decision Making - Lab Data Result diagrams: 03/29/18 09:10 03/29/18 09:10 - Medical Decision Making ABCs intact Taking by mouth ambulatory normal vital signs labs normal asking for pain meds w toradol allergy tylenol given - Differential Diagnosis rule out systemic illness Critical care attestation.: If time is entered above; I have spent that time in minutes in the direct care of this critically ill patient, excluding procedure time. ED Disposition Clinical Impression: Allergic reaction, Hand swelling Disposition: DC-01 TO HOME OR SELFCARE Is pt being admited?: No Does the pt Need Aspirin: No Condition: Stable Additional Instructions: avoid potential allergens meds as ordered today hydrate with water diet as tolerated activity as tolerated follow up with pcp if persists referral given below Prescriptions: Cetirizine HCl [Zyrtec] 10 mg PO DAILY #10 tablet predniSONE [Deltasone] 50 mg PO QDAY #5 tab Referrals: PRIMARY MD SHIRA [Primary Care Provider] - 3-5 Days LOU MATTHEWS JR, MD [Staff Physician] - 3-5 Days Time of Disposition: 09:56
[2018-03-29 09:34] LABS: Hematocrit 33.7 % (30.3-42.9); Mean Corpuscular HGB Conc 33 % (30-34); Mean Corpuscular Volume 77 fl (79-97); Platelet Count 219 K/mm3 (140-440); Red Blood Count 4.37 M/mm3 (3.65-5.03)
[2018-03-29 09:39] LABS: Mean Corpuscular Hemoglobin 25 pg (28-32); Red Cell Distribution Width 20.2 % (13.2-15.2)
[2018-03-29 09:51] LABS: Alanine Aminotransferase 115 units/L (7-56); Albumin 4.5 g/dL (3.9-5); BUN/Creatinine Ratio 15; Blood Urea Nitrogen 15 mg/dL (7-17); Calcium 9.3 mg/dL (8.4-10.2); Hemolysis Index 32
[2018-03-29] MEDS: TYLENOL PO ONE ×2 (10:01→11:20)
[2018-03-29 11:05] LABS: Band Neutrophils # (Manual) 0.1 K/mm3; Basophils % (Manual) 0 % (0.0-1.8); Eosinophils % (Manual) 0 % (0.0-4.3); Total Cells Counted 100
[2018-03-29 11:06] LABS: Macrocytosis 2+; Target Cells Few
[2018-03-29 11:07] LABS: Ovalocytes Few; Platelet Clumps Few; Platelet Estimate Consistent w Auto
[2018-03-29 11:20] VITALS: BP 131/98
== END 2018-03-29 11:24 | disposition home or self-care (01) ==
LOC: ED 05:34
DX: T78.40XA Allergy, unspecified, initial encounter (principal); J45.909 Unspecified asthma, uncomplicated; Z88.1 Allergy status to other antibiotic agents; X58.XXXA Exposure to other specified factors, initial encounter
CPT/HCPCS: 36415; 80053; 82550; 85007; 85025; 96374; 96375; 99283; J2930; J7040; Q0163

== ENCOUNTER 2018-03-30 18:44 | Inpatient (IN) | payer OTHER ==
--- NOTE | 2018-03-30 20:19 | Emergency Department Report ---
ED General Adult HPI - General Chief complaint: Extremity Problem,Nontraumatic Stated complaint: SORE THROAT Time Seen by Provider: 03/30/18 19:47 Source: patient Mode of arrival: Ambulatory Limitations: No Limitations - History of Present Illness Initial comments: Patient complaining of bilateral hand swelling and and rash on both hands with redness. She says she was here earlier a couple of days ago and she was discharged home on prednisone however she hasn't been getting better and the rash has worsened. Patient also complained of throat pain especially when swallowing to the point that she cannot swallow solids at this time. She is also having difficulty and pain while swallowing liquids. She denies any sexual activity. She also denies any vaginal symptoms slight vaginal discharge. -: Gradual Location: mouth, upper extremity Radiation: non-radiation Severity scale (0 -10): 6 Quality: sharp Consistency: constant Improves with: none Worsens with: none Associated Symptoms: rash Treatments Prior to Arrival: none - Related Data Previous Rx's Medication Instructions Recorded Last Taken Type Fluconazole [Diflucan TAB] 100 mg PO QDAY #14 tablet 08/06/16 Unknown Rx Ipratropium/Albuter (Nf) 2 puff IH TID #1 inha 08/06/16 Unknown Rx [Combivent (Nf)] Cetirizine HCl [Zyrtec] 10 mg PO DAILY #10 tablet 03/29/18 Unknown Rx predniSONE [Deltasone] 50 mg PO QDAY #5 tab 03/29/18 Unknown Rx Allergies Allergy/AdvReac Type Severity Reaction Status Date / Time amoxicillin Allergy Swelling Verified 03/29/18 07:25 ED Review of Systems ROS: Stated complaint: SORE THROAT Other details as noted in HPI Comment: All other systems reviewed and negative Constitutional: denies: chills, fever Eyes: denies: eye pain, eye discharge, vision change ENT: throat pain. denies: ear pain Respiratory: denies: cough, shortness of breath, wheezing Cardiovascular: denies: chest pain, palpitations Endocrine: no symptoms reported Gastrointestinal: denies: abdominal pain, nausea, diarrhea Genitourinary: denies: urgency, dysuria, discharge Musculoskeletal: denies: back pain, joint swelling, arthralgia Skin: rash, lesions (Bilateral Hands) Neurological: denies: headache, weakness, paresthesias Psychiatric: denies: anxiety, depression Hematological/Lymphatic: denies: easy bleeding, easy bruising ED Past Medical Hx - Past Medical History Hx Asthma: Yes - Social History Smoking Status: Never Smoker Substance Use Type: None - Medications Home Medications: Home Medications Medication Instructions Recorded Confirmed Last Taken Type Fluconazole [Diflucan TAB] 100 mg PO QDAY #14 tablet 08/06/16 03/31/18 Unknown Rx Ipratropium/Albuter (Nf) 2 puff IH TID #1 inha 08/06/16 03/31/18 Unknown Rx [Combivent (Nf)] Cetirizine HCl [Zyrtec] 10 mg PO DAILY #10 tablet 03/29/18 03/31/18 Unknown Rx predniSONE [Deltasone] 50 mg PO QDAY #5 tab 03/29/18 03/31/18 Unknown Rx ED Physical Exam - General Limitations: No Limitations General appearance: alert, in no apparent distress - Head Head exam: Present: atraumatic, normocephalic, normal inspection - Eye Eye exam: Present: normal appearance, PERRL, EOMI - ENT ENT exam: Present: mucous membranes moist, other (Multiple red lesions on the soft palate consistent with Herpangina.) - Neck Neck exam: Present: normal inspection - Respiratory Respiratory exam: Present: normal lung sounds bilaterally. Absent: respiratory distress - Cardiovascular Cardiovascular Exam: Present: regular rate, normal rhythm. Absent: systolic murmur, diastolic murmur, rubs, gallop - GI/Abdominal GI/Abdominal exam: Present: soft, normal bowel sounds - Extremities Exam Extremities exam: Present: normal inspection - Back Exam Back exam: Present: normal inspection - Neurological Exam Neurological exam: Present: alert, oriented X3 - Psychiatric Psychiatric exam: Present: normal affect, normal mood - Skin Skin exam: Present: warm, dry, intact, normal color. Absent: rash ED Course Vital Signs 03/30/18 03/30/18 03/30/18 18:55 19:22 20:25 Temperature 98.6 F 98.3 F Pulse Rate 104 H 93 H Respiratory 16 18 Rate Blood Pressure 127/83 Blood Pressure 139/66 [Left] O2 Sat by Pulse 99 98 Oximetry 03/30/18 03/30/18 21:00 22:01 Temperature Pulse Rate Respiratory Rate Blood Pressure 128/88 128/88 Blood Pressure [Left] O2 Sat by Pulse 100 Oximetry - Consultations Consultation #1: 03/31/18 00:59 I consulted the hospitalist clinical science liaison Dr Albarado. He will admit patient for further evaluation. ED Medical Decision Making - Lab Data Result diagrams: 03/30/18 20:30 03/30/18 20:30 Lab Results 03/30/18 03/30/18 03/30/18 Range/Units 20:30 20:30 22:43 WBC 14.7 H (4.5-11.0) K/mm3 RBC 4.10 (3.65-5.03) M/mm3 Hgb 10.2 (10.1-14.3) gm/dl Hct 33.9 (30.3-42.9) % MCV 83 (79-97) fl MCH 25 L (28-32) pg MCHC 30 (30-34) % RDW 21.6 H (13.2-15.2) % Plt Count 197 (140-440) K/mm3 Add Manual Diff Complete Total Counted 100 Seg Neuts % (Manual) 91.0 H (40.0-70.0) % Band Neutrophils % 0 % Lymphocytes % (Manual) 9.0 L (13.4-35.0) % Reactive Lymphs % (Man) 0 % Monocytes % (Manual) 0 (0.0-7.3) % Eosinophils % (Manual) 0 (0.0-4.3) % Basophils % (Manual) 0 (0.0-1.8) % Metamyelocytes % 0 % Myelocytes % 0 % Promyelocytes % 0 % Blast Cells % 0 % Nucleated RBC % Not Reportable Seg Neutrophils # Man 13.4 H (1.8-7.7) K/mm3 Band Neutrophils # 0.0 K/mm3 Lymphocytes # (Manual) 1.3 (1.2-5.4) K/mm3 Abs React Lymphs (Man) 0.0 K/mm3 Monocytes # (Manual) 0.0 (0.0-0.8) K/mm3 Eosinophils # (Manual) 0.0 (0.0-0.4) K/mm3 Basophils # (Manual) 0.0 (0.0-0.1) K/mm3 Metamyelocytes # 0.0 K/mm3 Myelocytes # 0.0 K/mm3 Promyelocytes # 0.0 K/mm3 Blast Cells # 0.0 K/mm3 WBC Morphology Not Reportable Hypersegmented Neuts Not Reportable Hyposegmented Neuts Not Reportable Hypogranular Neuts Not Reportable Smudge Cells Not Reportable Toxic Granulation Not Reportable Toxic Vacuolation Not Reportable Dohle Bodies Not Reportable Pelger-Huet Anomaly Not Reportable Mandeep Rods Not Reportable Platelet Estimate Consistent w auto Clumped Platelets Not Reportable Plt Clumps, EDTA Not Reportable Large Platelets Not Reportable Giant Platelets Not Reportable Platelet Satelliting Not Reportable Plt Morphology Comment Not Reportable RBC Morphology Not Reportable Dimorphic RBCs Not Reportable Polychromasia Not Reportable Hypochromasia Not Reportable Poikilocytosis Not Reportable Anisocytosis 1+ Microcytosis Not Reportable Macrocytosis Not Reportable Spherocytes Not Reportable Pappenheimer Bodies Not Reportable Sickle Cells Not Reportable Target Cells 1+ Tear Drop Cells Not Reportable Ovalocytes Not Reportable Helmet Cells Not Reportable Whitfield-Eskdale Bodies Not Reportable Jefferson Rings Not Reportable Caitie Cells Not Reportable Bite Cells Not Reportable Crenated Cell Not Reportable Elliptocytes Not Reportable Acanthocytes (Spur) Not Reportable Rouleaux Not Reportable Hemoglobin C Crystals Not Reportable Schistocytes Not Reportable Malaria parasites Not Reportable Surinder Bodies Not Reportable Hem Pathologist Commnt No Sodium 137 (137-145) mmol/L Potassium 3.7 (3.6-5.0) mmol/L Chloride 106.2 (98-107) mmol/L Carbon Dioxide 14 L (22-30) mmol/L Anion Gap 21 mmol/L BUN 13 (7-17) mg/dL Creatinine 1.0 (0.7-1.2) mg/dL Estimated GFR > 60 ml/min BUN/Creatinine Ratio 13 % Glucose 98 (65-100) mg/dL Calcium 9.3 (8.4-10.2) mg/dL Total Bilirubin 0.30 (0.1-1.2) mg/dL AST 61 H (5-40) units/L ALT 116 H (7-56) units/L Alkaline Phosphatase 63 (35-129) units/L Total Protein 7.4 (6.3-8.2) g/dL Albumin 4.2 (3.9-5) g/dL Albumin/Globulin Ratio 1.3 % Urine Color Yellow (Yellow) Urine Turbidity Clear (Clear) Urine pH 6.0 (5.0-7.0) Ur Specific Boelus 1.011 (1.003-1.030) Urine Protein 30 mg/dl (Negative) mg/dL Urine Glucose (UA) Neg (Negative) mg/dL Urine Ketones Neg (Negative) mg/dL Urine Blood Neg (Negative) Urine Nitrite Neg (Negative) Urine Bilirubin Neg (Negative) Urine Urobilinogen < 2.0 (<2.0) mg/dL Ur Leukocyte Esterase Neg (Negative) Urine WBC (Auto) 2.0 (0.0-6.0) /HPF Urine RBC (Auto) 2.0 (0.0-6.0) /HPF U Epithel Cells (Auto) < 1.0 (0-13.0) /HPF - Medical Decision Making Cellulitis. Dysphagia. Herpangina. Patient is at risk for dehydration due to Odynophagia and she also has bilateral hand Cellulitis. She will need Infectious diseases consult and further inpatient evaluation. Critical care attestation.: If time is entered above; I have spent that time in minutes in the direct care of this critically ill patient, excluding procedure time. ED Disposition Clinical Impression: Cellulitis and abscess of hand, Acute herpangina, Odynophagia Disposition: 09 OP ADMIT IP TO THIS HOSP Is pt being admited?: Yes Does the pt Need Aspirin: No Condition: Stable Time of Disposition: 01:04
[2018-03-30] MEDS ORDERED: LIDOCAINE VISCOUS 2% PO ONE (20:20)
[2018-03-30 20:52] LABS: Mean Corpuscular HGB Conc 30 % (30-34); Mean Corpuscular Volume 83 fl (79-97); Platelet Count 197 K/mm3 (140-440)
[2018-03-30 21:03] LABS: Hematocrit 33.9 % (30.3-42.9); Hemoglobin 10.2 gm/dl (10.1-14.3); Mean Corpuscular Hemoglobin 25 pg (28-32); Red Cell Distribution Width 21.6 % (13.2-15.2)
[2018-03-30 21:07] LABS: Alanine Aminotransferase 116 units/L (7-56); Albumin 4.2 g/dL (3.9-5); BUN/Creatinine Ratio 13; Blood Urea Nitrogen 13 mg/dL (7-17); Calcium 9.3 mg/dL (8.4-10.2); Hemolysis Index 32
[2018-03-30 22:21] LABS: Basophils % (Manual) 0 % (0.0-1.8); Eosinophils % (Manual) 0 % (0.0-4.3); Monocytes % (Manual) 0 % (0.0-7.3); Total Cells Counted 100
[2018-03-30 22:22] LABS: Anisocytosis 1+; Platelet Estimate Consistent w Auto; Target Cells 1+
[2018-03-30 22:54] LABS: Bilirubin,Urine NEG (Negative); Blood,Urine NEG (Negative); Color,Urine Yellow (Yellow); Urobilinogen,Urine < 2.0 mg/dL (<2.0)
[2018-03-30] MEDS ORDERED: VANCOMYCIN/NS 1 GM/250 ML 1 GM/250 ML BAG IV ONE (23:33)
[2018-03-30] MEDS ORDERED: MORPHINE IV ONE (23:34)
[2018-03-30] MEDS ORDERED: ZOFRAN IV ONE (23:35)
[2018-03-31] MEDS ORDERED: MORPHINE IV PRN (01:09)
[2018-03-31] MEDS ORDERED: TYLENOL PO PRN (01:10)
[2018-03-31] MEDS ORDERED: ZOFRAN IV PRN (01:10)
[2018-03-31] MEDS ORDERED: VANCOMYCIN PHARMACY TO DOSE IV SCH (02:00)
--- NOTE | 2018-03-31 05:36 | History and Physical Report ---
CHIEF COMPLAINT: Painful rashes all over the body, mainly on both upper extremities. OTHER COMPLAINT: Includes sore throat. HISTORY OF PRESENT ILLNESS: The patient is a 48-year-old female who started noticing painful rashes coming off all over the body, especially on both the upper extremities. The rashes are red and painful, but do not itch. The patient had then about 2-3 days prior to presentation and came to the Emergency Room and was started on some prednisone and sent home, but came back with worsening rashes that are becoming more painful. There is no history of fever or chills. No history of nausea or vomiting; however, the patient has sore throat with difficulty in swallowing. There is no history of nausea or vomiting. No history of shortness of breath or cough. The patient admitted to having a cat at home and she does not known whether it is coming from the cat. PAST MEDICAL HISTORY: Pertinent for asthma. PAST SURGICAL HISTORY: Unremarkable. FAMILY HISTORY: Noncontributory. SOCIAL HISTORY: The patient does not smoke, does not drink alcohol, and does not use illicit drugs. MEDICATIONS: The patient is on Diflucan 100 mg by mouth daily, Combivent 2 puffs inhalation 3 times daily, Zyrtec 10 mg by mouth daily, and prednisone 50 mg by mouth daily. ALLERGIES: The patient is allergic to AMOXICILLIN. REVIEW OF SYSTEMS: CONSTITUTIONAL: There is no fever, no chills, no diaphoresis. HEENT: There is no headache, but there is sore throat. CARDIOVASCULAR SYSTEM: There is no chest pain or orthopnea. RESPIRATORY SYSTEM: There is no shortness of breath or cough. GASTROINTESTINAL SYSTEM: There is no nausea, no vomiting, no abdominal pain, diarrhea or constipation. NEUROLOGICAL SYSTEM: There is no numbness, no dizziness, no altered mental status. MUSCULOSKELETAL SYSTEM: There is no joint pain or swelling. DERMATOLOGICAL SYSTEM: Show scattered papules more on both hands and the forearms than any other part of the body, some of the papules are red in color with some black discoloration of the top. GENITOURINARY SYSTEM: There is no dysuria, hematuria or flank pain. Rest of system review is normal. PHYSICAL EXAMINATION: GENERAL: At the time of exam, the patient was found to be alert, oriented x 3, not in acute distress. VITAL SIGNS: Shows temperature of 98.6 degrees Fahrenheit, pulse of 104, respirations 16, blood pressure 127/83, O2 sat of 99% on room air. HEENT: Exam show pupils to be equal, round, and reactive to light and accommodation. Extraocular muscles are intact. NECK: Supple with no JVD or carotid bruit. CARDIOVASCULAR SYSTEM: Show normal first and second heart sounds with no gallops or murmurs. RESPIRATORY SYSTEM: Show good air entry on both sides of the lungs with no abnormal breath sounds. GASTROINTESTINAL SYSTEM: Show abdomen to be full, soft, nontender, with no organomegaly or rigidity. NEUROLOGICAL: Exam shows no focal deficit. MUSCULOSKELETAL SYSTEM: Show no joint swelling or tenderness. DERMATOLOGICAL SYSTEM: Show scattered papules all over the body, worse on the hands and forearm with hyperemia or redness and some of them have some black discoloration on the top. GENITOURINARY SYSTEM: Show no costovertebral angle tenderness. PERTINENT LABORATORY AND IMAGING STUDIES: The patient had CBC done with elevated white count of 14,700, normal hemoglobin, normal hematocrit with CBC differential showing elevated segmented neutrophil of 91%, the patient's chemistry shows elevated AST of 61, with elevated ALT of 116. Rest of chemistry was unremarkable. Urinalysis came back unremarkable. DIAGNOSES: 1. Cellulitis on both hands. 2. Acute pharyngitis. CARE OF PLAN: 1. The patient will be placed on observation in the medical floor. 2. The patient will continue intravenous vancomycin, with pharmacy to dose. 3. The patient will be on intravenous morphine 2 mg every four hours for pain and intravenous Zofran 4 mg every 8 hours for nausea and vomiting as well as Tylenol 650 mg by mouth every 4 hours for fever and headache. 4. The patient will have Infectious Disease consult with Dr. Franklin Parker. 5. The patient's diet will be low sodium diet. 6. The patient will have a Rapid Strep test done on the throat. JOB# [id number] OCN/NTS MTDD
[2018-03-31] MEDS ORDERED: VANCOMYCIN 1,250 MG in NACL 0.9% 250ML 250 ML IV SCH (08:00)
[2018-03-31] MEDS: HEPARIN SUB-Q SCH ×2 (09:47→22:30)
[2018-03-31] MEDS: NORCO 5/325 PO PRN ×4 (10:11→23:30)
--- NOTE | 2018-03-31 11:51 | Consultation ---
History of Present Illness - Reason for Consult Consult date: 03/31/18 rash Requesting physician: JENN ESCUDERO - History of Present Illness The patient is a 48-year-old female with no significant past medical history who was at her baseline state of health until about 4 days ago when she developed bilateral hand swelling and a rash. She presented to the emergency room, was given prednisone and discharged home. She later started developing a few papules on the dorsal surface of both hands. Some of the papules turned into hemorrhagic-looking blisters followed by scabbing. Hence she returned to the emergency room and was admitted to the hospital and started on IV vancomycin. For the last 2 days, she also has been developing severe odynophagia , more on the right compared to the left. She took 3 days of prednisone which was stopped on admission. She does not take any medications. She denies any new medication as such. Does not follow up with any physician. Lives with her and a cat. The cat does sleep with her at the bedside. Smokes 2 cigarettes per day. Denies any alcohol or recreational drug use. She reports a monogamous relationship with her for the last 15 years. Denies any known STDs however hasn't previously been tested for any period. Previously used to live in [facility], moved to [place] 3 years ago. Denies any international travel. Denies any known exposure to TB. Does not spend too much time outdoors, does not recall any specific tick or mosquito bite. She is not up to date with her cancer screening. No specific family history. Her daughter was diagnosed with type 2 diabetes. Her parents are healthy. Of note, the patient was admitted in July 2016 with a rash involving her face, tongue and hands and odynophagia that was thought to be possibly from Augmentin exposure for sinusitis. Patient thinks her current presentation is pretty similar to that, however the blistering is new this time. Review of Systems: General: no fevers,chills or rigors HEENT: no new visual disturbance. Painful swallowing. Respiratory: No cough, sputum, hemoptysis or shortness of breath Cardiovascular: No chest pain, syncope Gastrointestinal: No nausea, vomiting or diarrhea Genitourinary: No dysuria or hematuria Musculoskeletal: No new or worsening neck pain or back pain Neurologic: No headaches, seizures Hematologic: No easy bruising or bleeding Endocrine: No night sweats or acute weight loss Skin: positive for rash, no jaundice Psychiatric: No suicidal or homicidal ideation Medications and Allergies Allergies Allergy/AdvReac Type Severity Reaction Status Date / Time amoxicillin Allergy Swelling Verified 03/29/18 07:25 Home Medications Medication Instructions Recorded Confirmed Last Taken Type Fluconazole [Diflucan TAB] 100 mg PO QDAY #14 tablet 08/06/16 03/31/18 Unknown Rx Ipratropium/Albuter (Nf) 2 puff IH TID #1 inha 08/06/16 03/31/18 Unknown Rx [Combivent (Nf)] Cetirizine HCl [Zyrtec] 10 mg PO DAILY #10 tablet 03/29/18 03/31/18 Unknown Rx predniSONE [Deltasone] 50 mg PO QDAY #5 tab 03/29/18 03/31/18 Unknown Rx Active Meds: Active Medications Acetaminophen (Tylenol) 650 mg PO Q4H PRN PRN Reason: Fever >101 Acetaminophen/Hydrocodone Bitart (Lester 5/325) 1 each PO Q4H PRN PRN Reason: Pain, Moderate (4-6) Last Admin: 03/31/18 10:11 Dose: 1 each Heparin Sodium (Porcine) (Heparin) 5,000 unit SUB-Q Q12HR SHIN Last Admin: 03/31/18 09:47 Dose: 5,000 unit Vancomycin HCl (Vancomycin/Ns 1 Gm/250 Ml) 1 gm in 250 mls @ 167.007 mls/hr IV Q12HR SHIN Ondansetron HCl (Zofran) 4 mg IV Q8H PRN PRN Reason: Nausea And Vomiting Physical Examination - Physical Exam Narrative exam: Physical Exam: Constitutional: Alert, cooperative. No acute distress Head, Ears, Nose: Normocephalic, atraumatic. External ears, nose normal Eyes: Conjunctivae/corneas clear. No icterus. No ptosis. Neck: Supple, no meningeal signs Oral: dentition fair, no thrush. Few whitish appearing small ulcerations at the base of the uvula and posterior pharyngeal wall. Cardiovascular: S1, S2 normal. Respiratory: Good air entry, clear to auscultation bilaterally GI: Soft, non-tender; bowel sounds normal. No peritoneal signs Musculoskeletal: No pedal edema, no cyanosis. Skin: Bilateral rash of the hands, papular with few hemorrhagic appearing blisters on the dorsal surface. Another papule on left knee. Hem/Lymphatic: No palpable cervical or supraclavicular nodes. No lymphangitis Psych: Mood ok. Affect normal Neurological: Awake, alert, oriented. No gross abnormality - Constitutional Vitals: Vital Signs Temp Pulse Resp BP Pulse Ox 97.3 F L 82 20 133/70 99 03/31/18 05:03 03/31/18 05:03 03/31/18 05:03 03/31/18 05:03 03/31/18 05:03 Temperature -Last 24 Hours Temperature 97.3 F Temperature 98.3 F Temperature 98.6 F Results - Labs CBC & Chem 7: 03/30/18 20:30 03/30/18 20:30 Labs: Abnormal lab results 03/30/18 03/30/18 Range/Units 20:30 20:30 WBC 14.7 H (4.5-11.0) K/mm3 MCH 25 L (28-32) pg RDW 21.6 H (13.2-15.2) % Seg Neuts % (Manual) 91.0 H (40.0-70.0) % Lymphocytes % (Manual) 9.0 L (13.4-35.0) % Seg Neutrophils # Man 13.4 H (1.8-7.7) K/mm3 Carbon Dioxide 14 L (22-30) mmol/L AST 61 H (5-40) units/L ALT 116 H (7-56) units/L Assessment and Plan Cultures: 03/30/2018 blood culture: In process A/P: 48/F, generally healthy, admitted with: 1) Bilateral rash of the hands, papular with few hemorrhagic appearing blisters with odynophagia and oropharyngeal ulcers and transaminitis. Acute onset. No specific allergen exposure. Seems to be only involving dorsal surfaces. No high risk behavior history. ?similar presentation last year. Does not seem to be of infectious etiology. Auto-immune condition possible. 2) Leukocytosis: Likely secondary to steroids. 3) Transaminitis: CPK is normal. Previous admission reviewed, she had significant AST and ALT elevation at that time. Check hepatitis panel. Also evaluated for autoimmune hepatitis and RUQ ultrasound ordered. Recs: Does not appear to be of infectious etiology Will discontinue antibiotics Throat culture collected and ordered Viral culture ordered Autoimmune workup: PENNY, rheumatoid factor, C3, C4, ANCA vasculitis panel, Autoimmune hepatitis work up RUQ US HIV, RPR, GC ordered Continue to avoid steroids Will follow. MD [facility] C: [phone] O: [phone] F: [phone]
[2018-03-31 13:48] LABS: Hepatitis A Antibody IgM Non-Reactive (NonReactive); Hepatitis B Core IgM Non-Reactive (NonReactive); Hepatitis B Surface Antigen Non-Reactive (Negative); Hepatitis C Virus Antibody Non-Reactive (NonReactive)
--- NOTE | 2018-03-31 15:52 | Event Note ---
Date: 03/31/18 Patient with multiple blisters, skin rash. Etiology unclear. Consulted ID Physician, discussed with Dr. Miller.
[2018-03-31] MEDS ORDERED: VANCOMYCIN/NS 1 GM/250 ML 1 GM/250 ML BAG IV SCH (22:00)
[2018-04-01] MEDS: NORCO 5/325 PO PRN ×3 (05:17→21:02)
[2018-04-01 05:40] LABS: Hematocrit 30.3 % (30.3-42.9); Hemoglobin 9.7 gm/dl (10.1-14.3); Mean Corpuscular HGB Conc 32 % (30-34); Mean Corpuscular Volume 78 fl (79-97); Platelet Count 223 K/mm3 (140-440); Red Blood Count 3.87 M/mm3 (3.65-5.03)
[2018-04-01 06:04] LABS: Alanine Aminotransferase 67 units/L (7-56); Albumin 3.6 g/dL (3.9-5); BUN/Creatinine Ratio 18; Blood Urea Nitrogen 11 mg/dL (7-17); Calcium 8.8 mg/dL (8.4-10.2); Hemolysis Index 0
[2018-04-01 06:09] LABS: Mean Corpuscular Hemoglobin 25 pg (28-32); Red Cell Distribution Width 21.3 % (13.2-15.2)
--- NOTE | 2018-04-01 09:26 | Progress Note ---
Assessment and Plan Assessment and plan: Skin rash. To r/o auto-immune disorder Rash is upper extremities, mostly hands Elevated LFT Improving History of asthma, stable Full code status. History Interval history: Rash on hands, upper ext Hospitalist Physical - Physical exam Narrative exam: GEN: Not in acute distress, HEENT: Normocephalic, atraumatic, Neck: supple, No JVD Lungs: Clear to auscultation bilaterally, no crackles, no wheeze Heart:S1 and S2 regular, no murmurs, rubs or gallop, Abd:soft, non-tender, non-distended, normal bowel sounds Ext: Papular rash on upper ext mostly hands, some hemorhagic areas on rash, no cyanosis Neuro: AAO x 3, no focal neurological signs - Constitutional Vitals: Temp Pulse Resp BP Pulse Ox 98.8 F 83 18 120/60 99 04/01/18 06:05 04/01/18 06:05 04/01/18 06:05 04/01/18 06:05 04/01/18 06:05 Results - Labs CBC & Chem 7: 04/01/18 05:00 04/01/18 05:00 Labs: Laboratory Last Values WBC 6.9 K/mm3 (4.5-11.0) 04/01/18 05:00 RBC 3.87 M/mm3 (3.65-5.03) 04/01/18 05:00 Hgb 9.7 gm/dl (10.1-14.3) L 04/01/18 05:00 Hct 30.3 % (30.3-42.9) 04/01/18 05:00 MCV 78 fl (79-97) L 04/01/18 05:00 MCH 25 pg (28-32) L 04/01/18 05:00 MCHC 32 % (30-34) 04/01/18 05:00 RDW 21.3 % (13.2-15.2) H 04/01/18 05:00 Plt Count 223 K/mm3 (140-440) 04/01/18 05:00 Add Manual Diff Complete 03/30/18 20:30 Total Counted 100 03/30/18 20:30 Seg Neuts % (Manual) 91.0 % (40.0-70.0) H 03/30/18 20:30 Band Neutrophils % 0 % 03/30/18 20:30 Lymphocytes % (Manual) 9.0 % (13.4-35.0) L 03/30/18 20:30 Reactive Lymphs % (Man) 0 % 03/30/18 20:30 Monocytes % (Manual) 0 % (0.0-7.3) 03/30/18 20:30 Eosinophils % (Manual) 0 % (0.0-4.3) 03/30/18 20:30 Basophils % (Manual) 0 % (0.0-1.8) 03/30/18 20:30 Metamyelocytes % 0 % 03/30/18 20:30 Myelocytes % 0 % 03/30/18 20:30 Promyelocytes % 0 % 03/30/18 20:30 Blast Cells % 0 % 03/30/18 20:30 Nucleated RBC % Not Reportable 03/30/18 20:30 Seg Neutrophils # Man 13.4 K/mm3 (1.8-7.7) H 03/30/18 20:30 Band Neutrophils # 0.0 K/mm3 03/30/18 20:30 Lymphocytes # (Manual) 1.3 K/mm3 (1.2-5.4) 03/30/18 20:30 Abs React Lymphs (Man) 0.0 K/mm3 03/30/18 20:30 Monocytes # (Manual) 0.0 K/mm3 (0.0-0.8) 03/30/18 20:30 Eosinophils # (Manual) 0.0 K/mm3 (0.0-0.4) 03/30/18 20:30 Basophils # (Manual) 0.0 K/mm3 (0.0-0.1) 03/30/18 20:30 Metamyelocytes # 0.0 K/mm3 03/30/18 20:30 Myelocytes # 0.0 K/mm3 03/30/18 20:30 Promyelocytes # 0.0 K/mm3 03/30/18 20:30 Blast Cells # 0.0 K/mm3 03/30/18 20:30 WBC Morphology Not Reportable 03/30/18 20:30 Hypersegmented Neuts Not Reportable 03/30/18 20:30 Hyposegmented Neuts Not Reportable 03/30/18 20:30 Hypogranular Neuts Not Reportable 03/30/18 20:30 Smudge Cells Not Reportable 03/30/18 20:30 Toxic Granulation Not Reportable 03/30/18 20:30 Toxic Vacuolation Not Reportable 03/30/18 20:30 Dohle Bodies Not Reportable 03/30/18 20:30 Pelger-Huet Anomaly Not Reportable 03/30/18 20:30 Mandeep Rods Not Reportable 03/30/18 20:30 Platelet Estimate Consistent w auto 03/30/18 20:30 Clumped Platelets Not Reportable 03/30/18 20:30 Plt Clumps, EDTA Not Reportable 03/30/18 20:30 Large Platelets Not Reportable 03/30/18 20:30 Giant Platelets Not Reportable 03/30/18 20:30 Platelet Satelliting Not Reportable 03/30/18 20:30 Plt Morphology Comment Not Reportable 03/30/18 20:30 RBC Morphology Not Reportable 03/30/18 20:30 Dimorphic RBCs Not Reportable 03/30/18 20:30 Polychromasia Not Reportable 03/30/18 20:30 Hypochromasia Not Reportable 03/30/18 20:30 Poikilocytosis Not Reportable 03/30/18 20:30 Anisocytosis 1+ 03/30/18 20:30 Microcytosis Not Reportable 03/30/18 20:30 Macrocytosis Not Reportable 03/30/18 20:30 Spherocytes Not Reportable 03/30/18 20:30 Pappenheimer Bodies Not Reportable 03/30/18 20:30 Sickle Cells Not Reportable 03/30/18 20:30 Target Cells 1+ 03/30/18 20:30 Tear Drop Cells Not Reportable 03/30/18 20:30 Ovalocytes Not Reportable 03/30/18 20:30 Helmet Cells Not Reportable 03/30/18 20:30 [place] Bodies Not Reportable 03/30/18 20:30 [place] Rings Not Reportable 03/30/18 20:30 Caitie Cells Not Reportable 03/30/18 20:30 Bite Cells Not Reportable 03/30/18 20:30 Crenated Cell Not Reportable 03/30/18 20:30 Elliptocytes Not Reportable 03/30/18 20:30 Acanthocytes (Spur) Not Reportable 03/30/18 20:30 Rouleaux Not Reportable 03/30/18 20:30 Hemoglobin C Crystals Not Reportable 03/30/18 20:30 Schistocytes Not Reportable 03/30/18 20:30 Malaria parasites Not Reportable 03/30/18 20:30 Surinder Bodies Not Reportable 03/30/18 20:30 Hem Pathologist Commnt No 03/30/18 20:30 Sodium 139 mmol/L (137-145) 04/01/18 05:00 Potassium 3.6 mmol/L (3.6-5.0) 04/01/18 05:00 Chloride 108.5 mmol/L (98-107) H 04/01/18 05:00 Carbon Dioxide 17 mmol/L (22-30) L 04/01/18 05:00 Anion Gap 17 mmol/L 04/01/18 05:00 BUN 11 mg/dL (7-17) 04/01/18 05:00 Creatinine 0.6 mg/dL (0.7-1.2) L 04/01/18 05:00 Estimated GFR > 60 ml/min 04/01/18 05:00 BUN/Creatinine Ratio 18 % 04/01/18 05:00 Glucose 90 mg/dL (65-100) 04/01/18 05:00 Calcium 8.8 mg/dL (8.4-10.2) 04/01/18 05:00 Total Bilirubin < 0.20 mg/dL (0.1-1.2) 04/01/18 05:00 AST 24 units/L (5-40) 04/01/18 05:00 ALT 67 units/L (7-56) H 04/01/18 05:00 Alkaline Phosphatase 57 units/L (35-129) 04/01/18 05:00 Total Protein 6.8 g/dL (6.3-8.2) 04/01/18 05:00 Albumin 3.6 g/dL (3.9-5) L 04/01/18 05:00 Albumin/Globulin Ratio 1.1 % 04/01/18 05:00 Urine Color Yellow (Yellow) 03/30/18 22:43 Urine Turbidity Clear (Clear) 03/30/18 22:43 Urine pH 6.0 (5.0-7.0) 03/30/18 22:43 Ur Specific [place] 1.011 (1.003-1.030) 03/30/18 22:43 Urine Protein 30 mg/dl mg/dL (Negative) 03/30/18 22:43 Urine Glucose (UA) Neg mg/dL (Negative) 03/30/18 22:43 Urine Ketones Neg mg/dL (Negative) 03/30/18 22:43 Urine Blood Neg (Negative) 03/30/18 22:43 Urine Nitrite Neg (Negative) 03/30/18 22:43 Urine Bilirubin Neg (Negative) 03/30/18 22:43 Urine Urobilinogen < 2.0 mg/dL (<2.0) 03/30/18 22:43 Ur Leukocyte Esterase Neg (Negative) 03/30/18 22:43 Urine WBC (Auto) 2.0 /HPF (0.0-6.0) 03/30/18 22:43 Urine RBC (Auto) 2.0 /HPF (0.0-6.0) 03/30/18 22:43 U Epithel Cells (Auto) < 1.0 /HPF (0-13.0) 03/30/18 22:43 RPR Nonreactive (Nonreactive) 03/30/18 21:04 Hepatitis A IgM Ab Non-reactive (NonReactive) 03/31/18 12:24 Hep Bs Antigen Non-reactive (Negative) 03/31/18 12:24 Hep B Core IgM Ab Non-reactive (NonReactive) 03/31/18 12:24 Hepatitis C Antibody Non-reactive (NonReactive) 03/31/18 12:24 Group A Strep Rapid Negative (Negative) 03/31/18 11:25
--- NOTE | 2018-04-01 11:05 | Progress Note ---
Assessment and Plan Cultures: 03/30/2018 blood culture: no growth thus far 03/31/2018 throat culture: in process A/P: 48/F, generally healthy, admitted with: 1) Bilateral rash of the hands, papular with few hemorrhagic appearing blisters with odynophagia and oropharyngeal ulcers and transaminitis. Acute onset. No specific allergen exposure. Seems to be only involving dorsal surfaces. No high risk behavior history. ?similar presentation last year. Does not seem to be of infectious etiology. Auto-immune condition possible. 2) Leukocytosis: Likely secondary to steroids. Now resolved. 3) Transaminitis: CPK is normal. Previous admission reviewed, she had significant AST and ALT elevation at that time. Viral hepatitis panel negative. RPR non reactive. Also evaluated for autoimmune hepatitis and RUQ ultrasound ordered. Recs: Follow up pending blood work follow up throat culture, HSV PCR No abx or steroids till diagnosis is clear Autoimmune workup pending: PENNY, rheumatoid factor, C3, C4, ANCA vasculitis panel , Autoimmune hepatitis work up RUQ US pending Patient may need a rheumatologic evaluation Will follow. Plan d/w Dr. Gregory. Mabel Miller MD [facility] C: [phone] O: [phone] F: [phone] Subjective Date of service: 04/01/18 Principal diagnosis: rash Interval history: Denies any new complaints. no fever. Reports some pain and swelling of left arm/ forearm. Rash persistent. Reports some stiffness of muscles. Odynophagia still present. Objective - Exam Narrative Exam: Physical Exam: Constitutional: Alert, cooperative. No acute distress Head, Ears, Nose: Normocephalic, atraumatic. External ears, nose normal Eyes: Conjunctivae/corneas clear. No icterus. No ptosis. Neck: Supple, no meningeal signs Oral: dentition fair, no thrush. Few whitish appearing small ulcerations at the base of the uvula and posterior pharyngeal wall. Cardiovascular: S1, S2 normal. Respiratory: Good air entry, clear to auscultation bilaterally GI: Soft, non-tender; bowel sounds normal. No peritoneal signs Musculoskeletal: No pedal edema, no cyanosis. Skin: Bilateral rash of the hands, papular with few hemorrhagic appearing blisters on the dorsal surface. Another papule on left knee. These are non- tender Hem/Lymphatic: No palpable cervical or supraclavicular nodes. No lymphangitis Psych: Mood ok. Affect normal Neurological: Awake, alert, oriented. No gross abnormality - Constitutional Vitals: Vital Signs Temp Pulse Resp BP Pulse Ox 98.8 F 83 18 120/60 99 04/01/18 06:05 04/01/18 06:05 04/01/18 06:05 04/01/18 06:05 04/01/18 06:05 Temperature -Last 24 Hours Temperature 98.8 F Temperature 98.0 F Temperature 98.0 F Temperature 98.3 F - Labs CBC & Chem 7: 04/01/18 05:00 04/01/18 05:00 Labs: Abnormal lab results 04/01/18 04/01/18 Range/Units 05:00 05:00 Hgb 9.7 L (10.1-14.3) gm/dl MCV 78 L (79-97) fl MCH 25 L (28-32) pg RDW 21.3 H (13.2-15.2) % Chloride 108.5 H (98-107) mmol/L Carbon Dioxide 17 L (22-30) mmol/L Creatinine 0.6 L (0.7-1.2) mg/dL ALT 67 H (7-56) units/L Albumin 3.6 L (3.9-5) g/dL
--- NOTE | 2018-04-01 12:14 | Event Note ---
Date: 04/01/18 Many of the labs I ordered yesterday were auto-cancelled for some reason. Discussed with lab, reason seems unclear. Re-ordered. Also, GC DNA not collected. Nursing communication order placed. Will give one empiric dose of IV Ceftriaxone x 1 while results are awaited.
[2018-04-01] MEDS: HEPARIN SUB-Q SCH ×2 (12:16→21:03)
--- NOTE | 2018-04-01 12:39 | Ultrasound Report ---
ULTRASOUND ABDOMEN LIMITED INDICATION: Elevated AST, ALT. COMPARISON: None. FINDINGS: Right upper quadrant sonography suggests slight diffuse nonspecific hepatic coarsening. Grossly preserved contours. No biliary dilatation. Approximately 2.6 x 1.8 cm left hepatic lobe echogenic focus as on image 21, presumably a hemangioma. No definite shadowing gallstones or pericholecystic fluid, though few small nonspecific echogenicities/possible polyps along the gallbladder wall ranging between 3-5 mm as on images 39-45. Gallbladder wall thickness is 1.3 mm. Common bile duct is 4 mm. Imaged pancreas, nonaneurysmal abdominal aorta and IVC within normal limits. Unremarkable right kidney estimated at 10.8 x 4.1 x 5.4 cm with cortical thickness of 1.6 cm. CONCLUSION: Coarse liver with presumed small left hepatic lobe hemangioma and few gallbladder polyps, as described. Please correlate. Thank you for the opportunity to participate in this patient's care.
[2018-04-01] MEDS ORDERED: ROCEPHIN/NS 2 GM/100 ML 2 GM/100 ML BAG IV ONE (14:00)
[2018-04-02] MEDS: NORCO 5/325 PO PRN ×3 (01:03→09:50)
[2018-04-02] MEDS: HEPARIN SUB-Q SCH (09:51)
--- NOTE | 2018-04-02 11:21 | Progress Note ---
Assessment and Plan Cultures: 03/30/2018 blood culture: no growth thus far 03/31/2018 throat culture: no growth thus far A/P: 48/F, generally healthy, admitted with: 1) Bilateral rash of the hands, papular with few hemorrhagic appearing blisters with odynophagia and oropharyngeal ulcers and transaminitis. Acute onset. No specific allergen exposure. Seems to be only involving dorsal surfaces. No high risk behavior history. ?similar presentation last year. Does not seem to be of infectious etiology. Auto-immune condition possible. GC pending. Gave empiric dose of Ceftriaxone to cover for GC. Will order PO Doxycycline 100 mg BID x 7 days as empiric therapy. Will need rheum eval as outpatient. 2) Leukocytosis: Likely secondary to steroids. Now resolved. 3) Transaminitis: CPK is normal. Previous admission reviewed, she had significant AST and ALT elevation at that time. Viral hepatitis panel negative. RPR non reactive. Also evaluate for autoimmune hepatitis. RUQ ultrasound result shows "Coarse liver with presumed small left hepatic lobe hemangioma and few gallbladder polyps" Recs: Follow up pending blood work May discharge on empiric PO Doxycycline 100 mg BID x 7 days (prescription left on chart) Follow up with Rheumatology & Dermatology outpatient Follow up in ID clinic in 2 weeks to discuss lab results, contact info given to patient Will sign off. Plan d/w Dr. Gregory. Mabel Miller MD [facility] C: [phone] O: [phone] F: [phone] Subjective Date of service: 04/02/18 Principal diagnosis: rash Interval history: Feels the same. tolerated ceftriaxone. No fever. Rash persistent, no improvement. no diarrhea. Sore throat still present. Objective - Exam Narrative Exam: Physical Exam: Constitutional: Alert, cooperative. No acute distress Head, Ears, Nose: Normocephalic, atraumatic. External ears, nose normal Eyes: Conjunctivae/corneas clear. No icterus. No ptosis. Neck: Supple, no meningeal signs Oral: dentition fair, no thrush. Few whitish appearing small ulcerations at the base of the uvula and posterior pharyngeal wall. Cardiovascular: S1, S2 normal. Respiratory: Good air entry, clear to auscultation bilaterally GI: Soft, non-tender; bowel sounds normal. No peritoneal signs Musculoskeletal: No pedal edema, no cyanosis. Skin: Bilateral rash of the hands, papular with few hemorrhagic appearing blisters on the dorsal surface. Another papule on left knee. These are non- tender Hem/Lymphatic: No palpable cervical or supraclavicular nodes. No lymphangitis Neurological: Awake, alert, oriented. No gross abnormality - Constitutional Vitals: Vital Signs Temp Pulse Resp BP Pulse Ox 98.7 F 90 20 129/76 98 04/02/18 05:37 04/02/18 05:37 04/02/18 10:02 04/02/18 05:37 04/02/18 05:37 Temperature -Last 24 Hours Temperature 98.7 F Temperature 98.8 F Temperature 99.3 F - Labs CBC & Chem 7: 04/01/18 05:00 04/01/18 05:00
--- NOTE | 2018-04-02 12:03 | Discharge Summary ---
Providers - Providers Date of Admission: 03/31/18 03:41 Date of discharge: 04/02/18 Attending physician: JENN ESCUDERO 03/31/18 09:24 Consult to Physician [CONS] Routine Comment: Consulting Provider: STANFORD WOO Physician Instructions: Reason For Exam: skin rash Primary care physician: [facility] Hospitalization Condition: Fair Disposition: DC-01 TO HOME OR SELFCARE Core Measure Documentation - Palliative Care Palliative Care/ Comfort Measures: Not Applicable - Core Measures Any of the following diagnoses?: none Exam - Constitutional Vitals: Temp Pulse Resp BP Pulse Ox 98.7 F 90 20 129/76 98 04/02/18 05:37 04/02/18 05:37 04/02/18 10:02 04/02/18 05:37 04/02/18 05:37 Plan Activity: no restrictions Diet: low fat, low cholesterol Additional Instructions: 1.Follow up with PCP or [facility] in 1 week. 2.Follow up with Rheumatology or Dermatology in 1 week. 3.Follow up with SHANIA Medina in 2 weeks Follow up with: PRIMARY CARE,MD [Primary Care Provider] - 3-5 Days Prescriptions: Doxycycline [Vibramycin CAP] 100 mg PO Q12HR 7 Days #14 capsule
[2018-04-02 12:36] VITALS: BP 116/55
[2018-04-02] MEDS ORDERED: BANOPHEN PO ONE (13:00)
[2018-04-02] MEDS ORDERED: SODIUM BICARBONATE PO SCH (19:00)
[2018-04-04 19:50] LABS: Myeloperoxidase Antibody 1.4 AI (<1.0)
[2018-04-05 22:00] LABS: ANA Screen, IFA Negative (Negative)
== END 2018-04-02 18:08 | disposition home or self-care (01) | DRG 603 ==
LOC: ED 18:44 → 3A 03-31 03:41
PROVIDERS: ADMIT Internal Medicine; ATTEND Internal Medicine
DX: L03.114 Cellulitis of left upper limb (principal); L02.818 Cutaneous abscess of other sites; L02.519 Cutaneous abscess of unspecified hand; L03.113 Cellulitis of right upper limb; R13.10 Dysphagia, unspecified; J02.9 Acute pharyngitis, unspecified; R74.0 Nonspecific elevation of levels of transaminase and lactic acid dehydrogenase [LDH]; D72.829 Elevated white blood cell count, unspecified; D18.09 Hemangioma of other sites; K82.4 Cholesterolosis of gallbladder; J45.909 Unspecified asthma, uncomplicated; B08.5 Enteroviral vesicular pharyngitis; T38.0X5A Adverse effect of glucocorticoids and synthetic analogues, initial encounter; Y92.89 Other specified places as the place of occurrence of the external cause; Z88.1 Allergy status to other antibiotic agents; Z79.899 Other long term (current) drug therapy
CPT/HCPCS: 36415; 76705; 80053; 80074; 81001; 85007; 85025; 85027; 86021; 86038; 86160; 86235; 86592; 87040; 87116; 87430; 87529; 87806; 96365; 96375; J0696; J1644; J2270; J2405; J3370; J7050; Q0163

== ENCOUNTER 2018-11-24 14:05 | Emergency (ER) | payer OTHER ==
--- NOTE | 2018-11-24 14:11 | Emergency Department Report ---
Blank Doc - Documentation Documentation: This is a 48-year-old female that presents with right thumb pain with foreign body sensation. Stated glass caused this last week. This initial assessment/diagnostic orders/clinical plan/treatment(s) is/are subject to change based on patient's health status, clinical progression and re- assessment by fellow clinical providers in the ED. Further treatment and workup at subsequent clinical providers discretion. Patient/guardians urged not to elope from the ED as their condition may be serious if not clinically assessed and managed. Initial orders include: 1- Patient sent to [facility] for further evaluation and treatment 2- xray
--- NOTE | 2018-11-24 14:35 | XRay Report ---
Right thumb 3 views: History: Pain, foreign body. Findings: There is no dislocation at the interphalangeal joint. Fracture noted of the distal end ungual tuft right thumb. Impression: Fracture distal phalanx right thumb.
[2018-11-24] MEDS ORDERED: NACL 0.9% 1000 ML 1,000 ML IV ONE (14:57)
[2018-11-24] MEDS ORDERED: BOOSTRIX IM ONE (14:57)
[2018-11-24] MEDS ORDERED: NORCO 5/325 PO ONE (14:57)
--- NOTE | 2018-11-24 14:58 | Emergency Department Report ---
HPI - General Chief Complaint: Skin/Abscess/Foreign Body Time Seen by Provider: 11/24/18 14:10 - HPI HPI: PT COMES TO ER WITH R THUMB AND L INDEX FINGER PAIN. SHE STATES SHE SMASHED THEM OVER A WEEK AGO. IN REVIEW OF EMR SHE HAS HAD SIMILAR ISSUES IN THE PAST. NO OTHER INJURY. SHE HAS BEEN CLEANING AT HOME WITH PEROXIDE BUT IT IS NOT GETTING BETTER. NO OTHER INJURIES ED Past Medical Hx - Past Medical History Hx Asthma: Yes - Family History Family history: no significant - Social History Smoking Status: Never Smoker Substance Use Type: None - Medications Home Medications: Home Medications Medication Instructions Recorded Confirmed Last Taken Type Clindamycin [Clindamycin CAP] 300 mg PO Q8H #30 cap 11/24/18 Unknown Rx ED Review of Systems ROS: Stated complaint: FINGER INFECTED Other details as noted in HPI Comment: All other systems reviewed and negative Physical Exam - Physical Exam Vital Signs: Vital Signs 11/24/18 14:13 Temperature 99.1 F Pulse Rate 109 H Respiratory 16 Rate Blood Pressure 120/40 O2 Sat by Pulse 98 Oximetry Physical Exam: WDWN patient in NAD VS per RN flow sheet Alert and oriented to person, place and time. S1-S2. No S3 or S4. No systolic or diastolic murmur. No JVD. No pitting edema. HR 90 ON EXAM Lungs clear to auscultation bilaterally anteriorly and posteriorly. Abdomen soft nontender bowel sounds X4 Moves all extremities well. Mood and affect appropriate. L INDEX FINGER MILD SWELLING, NO OPEN AREA, NO SUBUNGAL, RAPID CAP REFILL R THUMB SWOLLEN, RED, NO SUBUNGAL BUT NAIL BED IS INVOLVED. DRAINAGE NOTED. SKIN IS PINK AND VIABLE. PROX JOINTS AND HAND WITHOUT INJURY. ED Course Vital Signs 11/24/18 14:13 Temperature 99.1 F Pulse Rate 109 H Respiratory 16 Rate Blood Pressure 120/40 O2 Sat by Pulse 98 Oximetry ED Medical Decision Making - Radiology Data Radiology results: report reviewed, image reviewed - Medical Decision Making WOUND CARE PROVIDED CLEANED, SPLINTED FRACTURE NOTED MEDICATED- SEE MAR FOR INFECTION DC HOME WITH DC INSTRUCTIONS AND FOLLOW UP. KARLIE HAD A LONG DISCUSSION WITH PT ABOUT HER NEED TO FOLLOW UP GIVEN THE AMOUNT OF SWELLING AND INFECTION IN THIS DIGIT. SHE VERBALIZES UNDERSTANDING. Vital Signs 11/24/18 11/24/18 11/24/18 14:13 14:57 18:14 Temperature 99.1 F 98.2 F Pulse Rate 109 H 78 Respiratory 16 17 16 Rate Blood Pressure 120/40 Blood Pressure 111/62 [Left] O2 Sat by Pulse 98 99 Oximetry Critical care attestation.: If time is entered above; I have spent that time in minutes in the direct care of this critically ill patient, excluding procedure time. ED Disposition Clinical Impression: Fracture, finger, Cellulitis and abscess of hand Disposition: DC- TO HOME OR SELFCARE Is pt being admited?: No Does the pt Need Aspirin: No Condition: Stable Instructions: Cellulitis (ED) Additional Instructions: DIET TOLERATED MEDS ORDERED TODAY IN ER FOLLOW INSTRUCTIONS ON THE BOTTLE FOLLOW UP DR EPPERSON NEXT WEEK REFERRAL BELOW ACTIVITY TOLERATED MOTRIN OR TYLENOL FOR PAIN OR FEVER RETURN TO THE ER FOR WORSENING SYMPTOMS NOT RELIEVED BY YOUR MEDICATIONS. CLEAN WOUND WITH SOAP AND WATER TWICE PER DAY THEN RE-WRAP INSTRUCTED Prescriptions: Clindamycin [Clindamycin CAP] 300 mg PO Q8H #30 cap Referrals: MERVAT EPPERSON MD [Staff Physician] - 3-5 Days Time of Disposition: 15:09
[2018-11-24] MEDS ORDERED: THERMAZENE 50 GRAM TP ONE (15:30)
[2018-11-24] MEDS ORDERED: CLEOCIN 300 MG/50 mL 300 MG/50 ML BAG IV ONE (15:57)
[2018-11-24 18:16] VITALS: BP 111/62
== END 2018-11-24 18:18 | disposition home or self-care (01) ==
LOC: ED 14:05
DX: S62.521A Displaced fracture of distal phalanx of right thumb, initial encounter for closed fracture (principal); L03.114 Cellulitis of left upper limb; J45.909 Unspecified asthma, uncomplicated; Z88.1 Allergy status to other antibiotic agents; X58.XXXA Exposure to other specified factors, initial encounter; Y93.89 Activity, other specified; Y92.89 Other specified places as the place of occurrence of the external cause; Y99.8 Other external cause status
CPT/HCPCS: 29125; 73140; 90471; 90715; 96361; 96365; 99283; J7030

== ENCOUNTER 2019-02-06 14:09 | Emergency (ER) | payer SELFPAY ==
[2019-02-06 14:19] VITALS: BP 118/72
--- NOTE | 2019-02-06 16:40 | Emergency Department Report ---
ED ENT HPI - General Chief complaint: Earache Stated complaint: EAR/THROAT SWOLLEN Time Seen by Provider: 02/06/19 16:40 Source: patient Mode of arrival: Ambulatory Limitations: No Limitations - History of Present Illness Initial comments: This is a 48-year-old female brought by mother nontoxic, well nourished in appearance, no acute signs of distress presents to the ED with c/o of right earache with radiation to throat. Patient denies any ear drainage. Patient denies any trauma to the area. Patient denies any mastoid tenderness or tragus tenderness. Patient denies hearing decrease or hearing changes. Patient denies any fever, chills, nausea, vomiting, chest pain, short of breath, headache or stiff neck. Patient stated allergies to Amoxicillin. MD complaint: sore throat, ear pain -: days(s) (3) Location: R ear, throat Severity: mild Severity scale (0 -10): 8 Quality: aching Consistency: constant Improves with: none Worsens with: none Associated Symptoms: sore throat, other (right earache). denies: fever, cough, gum swelling, toothache, pain with swallowing, tinnitus, hearing loss, discharge from ear, rhinorrhea - Related Data Previous Rx's Medication Instructions Recorded Last Taken Type Clindamycin [Clindamycin CAP] 300 mg PO Q8H #30 cap 11/24/18 Unknown Rx Acetaminophen/Codeine [Tylenol 1 tab PO Q6H PRN #12 tab 02/06/19 Unknown Rx /Codeine # 3 tab] Azithromycin [Zithromax Z-TRAY] 250 mg PO DAILY #6 tablet 02/06/19 Unknown Rx Allergies Allergy/AdvReac Type Severity Reaction Status Date / Time amoxicillin Allergy Swelling Verified 11/24/18 14:07 ED Dental HPI - General Chief complaint: Earache Stated complaint: EAR/THROAT SWOLLEN Time Seen by Provider: 02/06/19 16:40 Source: patient Mode of arrival: Ambulatory Limitations: No Limitations - Related Data Previous Rx's Medication Instructions Recorded Last Taken Type Clindamycin [Clindamycin CAP] 300 mg PO Q8H #30 cap 11/24/18 Unknown Rx Acetaminophen/Codeine [Tylenol 1 tab PO Q6H PRN #12 tab 02/06/19 Unknown Rx /Codeine # 3 tab] Azithromycin [Zithromax Z-TRAY] 250 mg PO DAILY #6 tablet 02/06/19 Unknown Rx Allergies Allergy/AdvReac Type Severity Reaction Status Date / Time amoxicillin Allergy Swelling Verified 11/24/18 14:07 ED Review of Systems ROS: Stated complaint: EAR/THROAT SWOLLEN Other details as noted in HPI Constitutional: denies: chills, fever Eyes: denies: eye pain, eye discharge, vision change ENT: ear pain, throat pain Respiratory: denies: cough, shortness of breath, wheezing Cardiovascular: denies: chest pain, palpitations Endocrine: no symptoms reported Gastrointestinal: denies: abdominal pain, nausea, diarrhea Genitourinary: denies: urgency, dysuria, discharge Musculoskeletal: denies: back pain, joint swelling, arthralgia Skin: denies: rash, lesions Neurological: denies: headache, weakness, paresthesias Psychiatric: denies: anxiety, depression Hematological/Lymphatic: denies: easy bleeding, easy bruising ED Past Medical Hx - Past Medical History Hx Asthma: Yes - Surgical History Past Surgical History?: No - Social History Smoking Status: Current Every Day Smoker Substance Use Type: None - Medications Home Medications: Home Medications Medication Instructions Recorded Confirmed Last Taken Type Clindamycin [Clindamycin CAP] 300 mg PO Q8H #30 cap 11/24/18 Unknown Rx Acetaminophen/Codeine [Tylenol 1 tab PO Q6H PRN #12 tab 02/06/19 Unknown Rx /Codeine # 3 tab] Azithromycin [Zithromax Z-TRAY] 250 mg PO DAILY #6 tablet 02/06/19 Unknown Rx ED Physical Exam - General Limitations: No Limitations General appearance: alert, in no apparent distress - Head Head exam: Present: atraumatic, normocephalic - Expanded ENT Exam Expanded Ear exam: Present: normal external inspection TM/Canal exam: Erythema: Right TM, Bulging: Right TM Mouth exam: Present: normal external inspection, tongue normal. Absent: drooling, trismus Teeth exam: Present: normal inspection Throat exam: Positive: normal inspection, other (uvula midline). Negative: tonsillar erythema, tonsillomegaly, tonsillar exudate, R peritonsillar mass, L peritonsillar mass - Neck Neck exam: Present: normal inspection, full ROM. Absent: tenderness, meningismus, lymphadenopathy - Back Exam Back exam: Present: normal inspection, full ROM - Neurological Exam Neurological exam: Present: alert, oriented X3, normal gait - Psychiatric Psychiatric exam: Present: normal affect, normal mood - Skin Skin exam: Present: warm, dry, intact, normal color. Absent: rash ED Course Vital Signs 02/06/19 14:16 Temperature 97.8 F Pulse Rate 86 Respiratory 18 Rate Blood Pressure 118/72 O2 Sat by Pulse 100 Oximetry - Reevaluation(s) Reevaluation #1: 02/06/19 16:46 Patient is speaking in full sentences with no signs of distress noted. Critical care attestation.: If time is entered above; I have spent that time in minutes in the direct care of this critically ill patient, excluding procedure time. ED Disposition Clinical Impression: Right otitis media Qualifiers: Otitis media type: unspecified Qualified Code(s): H66.91 - Otitis media, u nspecified, right ear Disposition: TO HOME OR SELFCARE Is pt being admited?: No Does the pt Need Aspirin: No Condition: Stable Instructions: Otitis Media (ED) Additional Instructions: Follow-up with a primary care doctor in 3-5 days or if symptoms worsen and continue return to emergency room as soon as possible. Prescriptions: Acetaminophen/Codeine [Tylenol /Codeine # 3 tab] 1 tab PO Q6H PRN #12 tab PRN Reason: Pain , Severe (7-10) Azithromycin [Zithromax Z-TRAY] 250 mg PO DAILY #6 tablet Referrals: PRIMARY CAREMD [Referring] - 3-5 Days ROCK AG MD [Staff Physician] - 3-5 Days [facility] [Outside] - 3-5 Days [facility] [Outside] - 3-5 Days Forms: Work/School Release Form(ED)
== END 2019-02-06 17:27 | disposition home or self-care (01) ==
LOC: ED 14:09
DX: H66.91 Otitis media, unspecified, right ear (principal); J45.909 Unspecified asthma, uncomplicated; F17.200 Nicotine dependence, unspecified, uncomplicated; Z79.899 Other long term (current) drug therapy; Z88.1 Allergy status to other antibiotic agents
CPT/HCPCS: 99282

== ENCOUNTER 2019-02-08 12:18 | Emergency (ER) | payer OTHER ==
[2019-02-08 12:25] VITALS: BP 110/65
[2019-02-08] MEDS ORDERED: HYDROGEN PEROXIDE TP ONE (14:02)
--- NOTE | 2019-02-08 14:12 | Emergency Department Report ---
ED ENT HPI - General Chief complaint: Earache Stated complaint: EAR INFECTION/KNOTS FOREHEAD Time Seen by Provider: 02/08/19 13:49 Source: patient Mode of arrival: Ambulatory Limitations: No Limitations - History of Present Illness Initial comments: patient is a 48-year-old female presents to emergency room with complaints of a right-sided earache that began a few days ago. pt has associated pain and edema to the right lower jaw and generalized body aches. Denies any ear drainage or fever. pt was evaluated in the ED on 02/06/19 and diagnosed with otitis media and started on a zpak. pt has medical history of asthma and has an allergy to amoxicillin. - Related Data Previous Rx's Medication Instructions Recorded Last Taken Type Clindamycin [Clindamycin CAP] 300 mg PO Q8H #30 cap 11/24/18 Unknown Rx Acetaminophen/Codeine [Tylenol 1 tab PO Q6H PRN #12 tab 02/06/19 Unknown Rx /Codeine # 3 tab] Azithromycin [Zithromax Z-TRAY] 250 mg PO DAILY #6 tablet 02/06/19 Unknown Rx Clindamycin [Clindamycin CAP] 450 mg PO TID 7 Days #63 capsule 02/08/19 Unknown Rx Ibuprofen [Motrin 800 MG tab] 800 mg PO Q8HR PRN #14 tablet 02/08/19 Unknown Rx Allergies Allergy/AdvReac Type Severity Reaction Status Date / Time amoxicillin Allergy Swelling Verified 11/24/18 14:07 ED Dental HPI - General Chief complaint: Earache Stated complaint: EAR INFECTION/KNOTS FOREHEAD Time Seen by Provider: 02/08/19 13:49 Source: patient Mode of arrival: Ambulatory Limitations: No Limitations - Related Data Previous Rx's Medication Instructions Recorded Last Taken Type Clindamycin [Clindamycin CAP] 300 mg PO Q8H #30 cap 11/24/18 Unknown Rx Acetaminophen/Codeine [Tylenol 1 tab PO Q6H PRN #12 tab 02/06/19 Unknown Rx /Codeine # 3 tab] Azithromycin [Zithromax Z-TRAY] 250 mg PO DAILY #6 tablet 02/06/19 Unknown Rx Clindamycin [Clindamycin CAP] 450 mg PO TID 7 Days #63 capsule 02/08/19 Unknown Rx Ibuprofen [Motrin 800 MG tab] 800 mg PO Q8HR PRN #14 tablet 02/08/19 Unknown Rx Allergies Allergy/AdvReac Type Severity Reaction Status Date / Time amoxicillin Allergy Swelling Verified 11/24/18 14:07 ED Review of Systems ROS: Stated complaint: EAR INFECTION/KNOTS FOREHEAD Other details as noted in HPI Comment: All other systems reviewed and negative ED Past Medical Hx - Past Medical History Hx Asthma: Yes - Surgical History Past Surgical History?: No - Social History Smoking Status: Never Smoker Substance Use Type: None - Medications Home Medications: Home Medications Medication Instructions Recorded Confirmed Last Taken Type Clindamycin [Clindamycin CAP] 300 mg PO Q8H #30 cap 11/24/18 Unknown Rx Acetaminophen/Codeine [Tylenol 1 tab PO Q6H PRN #12 tab 02/06/19 Unknown Rx /Codeine # 3 tab] Azithromycin [Zithromax Z-TRAY] 250 mg PO DAILY #6 tablet 02/06/19 Unknown Rx Clindamycin [Clindamycin CAP] 450 mg PO TID 7 Days #63 capsule 02/08/19 Unknown Rx Ibuprofen [Motrin 800 MG tab] 800 mg PO Q8HR PRN #14 tablet 02/08/19 Unknown Rx ED Physical Exam - General Limitations: No Limitations General appearance: alert, in no apparent distress - Head Head exam: Present: atraumatic, normocephalic - Eye Eye exam: Present: normal appearance - ENT ENT exam: Present: normal orophraynx, mucous membranes moist, TM's normal bilaterally, normal external ear exam, other (edema present inside the right lower cheek, appears to have dental caries present, uvula is midline, no uvular edema, no TTP or edema of the mastoid process bilaterally, small amount of wax present in the right ear canal irrigated with small amount of saline and it cleared, TM is intact and normal in appearance) - Respiratory Respiratory exam: Present: normal lung sounds bilaterally. Absent: respiratory distress, wheezes, rales, rhonchi, stridor, chest wall tenderness, accessory muscle use, decreased breath sounds, prolonged expiratory - Cardiovascular Cardiovascular Exam: Present: regular rate, normal rhythm, normal heart sounds. Absent: systolic murmur, diastolic murmur, rubs, gallop - Neurological Exam Neurological exam: Present: alert, oriented X3 - Psychiatric Psychiatric exam: Present: normal affect, normal mood - Skin Skin exam: Present: warm, dry, intact ED Course Vital Signs 02/08/19 12:23 Temperature 98.5 F Pulse Rate 97 H Respiratory 20 Rate Blood Pressure 110/65 O2 Sat by Pulse 99 Oximetry Critical care attestation.: If time is entered above; I have spent that time in minutes in the direct care of this critically ill patient, excluding procedure time. ED Disposition Clinical Impression: Dental abscess, Dental caries Disposition: - TO HOME OR SELFCARE Is pt being admited?: No Does the pt Need Aspirin: No Condition: Stable Instructions: Dental Abscess (ED), Dental Caries (ED) Additional Instructions: please take medication as prescribed. follow up with a dentist in the next 3-5 days. given list of dental clinics. return to the emergency room for any new or worsening symptoms. Prescriptions: Clindamycin [Clindamycin CAP] 450 mg PO TID 7 Days #63 capsule Ibuprofen [Motrin 800 MG tab] 800 mg PO Q8HR PRN #14 tablet PRN Reason: pain Referrals: a, dentist [Other] - 3-5 Days Time of Disposition: 14:12 Print Language: VENEZUELAN
[2019-02-08] MEDS ORDERED: ULTRAM PO ONE (14:14)
== END 2019-02-08 14:33 | disposition home or self-care (01) ==
LOC: ED 12:18
DX: K04.7 Periapical abscess without sinus (principal); K02.9 Dental caries, unspecified; J45.909 Unspecified asthma, uncomplicated; Z79.899 Other long term (current) drug therapy; Z88.1 Allergy status to other antibiotic agents

== ENCOUNTER 2019-11-01 09:11 | Emergency (ER) | payer SELFPAY ==
[2019-11-01 09:25] VITALS: BP 104/68
[2019-11-01] MEDS ORDERED: ONDANSETRON 4 MG/2 ML INJ IM ONE (09:46)
[2019-11-01] MEDS ORDERED: MORPHINE 4 MG/1 ML INJ IM ONE (09:46)
--- NOTE | 2019-11-01 09:50 | Emergency Department Report ---
ED Headache HPI - General Chief Complaint: Headache Stated Complaint: SOB HEADACHE Time Seen by Provider: 11/01/19 09:41 Source: patient - History of Present Illness Initial Comments: Patient is 49 years old female with history of asthma. Patient presented to the ER complaining of right-sided headache, throbbing in nature for the last 6 days. Patient denied any fever, neck pain, weakness numbness or tingling sensation. Patient stated that she was treated for tonsillitis 2 weeks ago but her symptoms are not improved. Timing/Duration: 1 week Quality: moderate Head Injury Location: temporal Recent Head Trauma: no recent headache/trauma Associated Symptoms: denies symptoms Allergies/Adverse Reactions: Allergies amoxicillin Allergy (Verified 11/24/18 14:07) Swelling Home Medications: Ambulatory Orders No Known Home Medications [No Reported Home Medications] 11/01/19 ED Review of Systems ROS: Stated complaint: SOB HEADACHE Other details as noted in HPI Comment: All other systems reviewed and negative Constitutional: denies: chills, fever Respiratory: shortness of breath. denies: cough, SOB with exertion, SOB at rest, wheezing Cardiovascular: denies: chest pain, palpitations Gastrointestinal: denies: abdominal pain, nausea, vomiting Musculoskeletal: denies: back pain Neurological: headache. denies: weakness, numbness, paresthesias, confusion, vertigo ED Past Medical Hx - Past Medical History Hx Asthma: Yes - Surgical History Past Surgical History?: No - Social History Smoking Status: Current Every Day Smoker - Medications Home Medications: Home Medications Medication Instructions Recorded Confirmed Last Taken Type No Known Home Medications [No 11/01/19 11/01/19 Unknown History Reported Home Medications] ED Physical Exam - General Limitations: No Limitations General appearance: alert, in no apparent distress - Head Head exam: Present: atraumatic, normocephalic, normal inspection - Eye Eye exam: Present: normal appearance, PERRL - ENT ENT exam: Present: other (Tenderness over the right ethmoid sinus.) - Neck Neck exam: Present: normal inspection, full ROM. Absent: tenderness, meningismus, lymphadenopathy, thyromegaly - Respiratory Respiratory exam: Present: normal lung sounds bilaterally - Cardiovascular Cardiovascular Exam: Present: regular rate, normal rhythm, normal heart sounds - GI/Abdominal GI/Abdominal exam: Present: soft, normal bowel sounds. Absent: distended, tenderness, guarding, rebound, rigid, organomegaly, mass, bruit, pulsatile mass, hernia - Extremities Exam Extremities exam: Present: normal inspection, full ROM, normal capillary refill. Absent: tenderness, pedal edema, calf tenderness - Back Exam Back exam: Present: normal inspection, full ROM. Absent: CVA tenderness (R), CVA tenderness (L), muscle spasm, paraspinal tenderness, vertebral tenderness - Neurological Exam Neurological exam: Present: alert, oriented X3, CN II-XII intact, normal gait, reflexes normal. Absent: motor sensory deficit - Psychiatric Psychiatric exam: Present: normal mood - Skin Skin exam: Present: intact, normal color ED Course Vital Signs 11/01/19 09:18 Temperature 97.8 F Pulse Rate 101 H Respiratory 20 Rate Blood Pressure 104/68 O2 Sat by Pulse 100 Oximetry ED Medical Decision Making - Medical Decision Making Patient is 49 years old female with history of asthma. Patient presented to the ER complaining of right-sided headache, throbbing in nature for the last 6 days. Patient denied any fever, neck pain, weakness numbness or tingling sensation. Patient stated that she was treated for tonsillitis 2 weeks ago but her symptoms are not improved. Patient received morphine and Zofran. Patient stated the headache improved significantly. CT brain is negative for acute finding. Chest x-ray is unremarkable. Patient advised to follow-up with her primary care physician in the next 2 to 3 days and to return to the ER if she develop any new symptoms. Critical care attestation.: If time is entered above; I have spent that time in minutes in the direct care of this critically ill patient, excluding procedure time. ED Disposition Clinical Impression: Sinusitis, Headache Disposition: - TO HOME OR SELFCARE Is pt being admited?: No Condition: Stable Instructions: Acute Headache (ED) Referrals: PRIMARY CARE, [Primary Care Provider] - 3-5 Days
--- NOTE | 2019-11-01 10:22 | Cat Scan Report ---
NONENHANCED CT SCAN OF THE HEAD: INDICATION / CLINICAL INFORMATION: 49 years Female; MAIN: headache X 3 DAYS . TECHNIQUE: Routine CT head without contrast. All CT scans at this location are performed using CT dos e reduction for ALARA by means of automated exposure control. COMPARISON: CT scan of the head from 07/30/2016 FINDINGS: BRAIN / INTRACRANIAL CONTENTS: No acute hemorrhage, mass effect, midline shift, hydrocephalus, or ac bela, large territorial infarct. No chronic infarct or focal atrophy. Normal brain volume and ventricu lar/sulcal size for age. No significant white matter abnormality. CRANIOCERVICAL JUNCTION: No significant abnormality. ORBITS: No significant abnormality of visualized orbits. SINUSES / MASTOIDS: Surgical changes in the left nasal cavity Mucosal thickening is seen in the left posterior ethmoid air cells; soft tissue thickening of left uncinate process ADDITIONAL FINDINGS: None. IMPRESSION: No acute focal parenchymal lesion in the CT scan Normal nonenhanced CT scan Signer Name: Brandie Chiu MD Signed: 11/01/2019 10:18 AM Workstation Name: [id number]
--- NOTE | 2019-11-01 12:16 | XRay Report ---
CHEST 1 VIEW INDICATION: SOB. COMPARISON: 08/01/2016. FINDINGS: Support devices: None. Heart: Within normal limits. Lungs/Pleura: No acute air space or interstitial disease. Additional findings: None. IMPRESSION: No acute abnormality. Signer Name: Joe Martino MD Signed: 11/01/2019 12:12 PM Workstation Name: [id number]
== END 2019-11-01 11:32 | disposition home or self-care (01) ==
LOC: ED 09:11
DX: J01.80 Other acute sinusitis (principal)
CPT/HCPCS: 70450; 71045; 96372; 99283; J2270; J2405

== ENCOUNTER 2019-11-04 09:01 | Emergency (ER) | payer SELFPAY ==
[2019-11-04] MEDS ORDERED: HYDROcodone/ACETAMINOPHEN 10-325MG TAB PO ONE (09:31)
[2019-11-04 10:32] LABS: BUN/Creatinine Ratio 15; Blood Urea Nitrogen 16 mg/dL (7-17); Hemolysis Index 1
[2019-11-04 10:44] LABS: Hematocrit 21.4 % (30.3-42.9); Hemoglobin 6.6 gm/dl (10.1-14.3); Mean Corpuscular HGB Conc 31 % (30-34); Platelet Count 339 K/mm3 (140-440)
[2019-11-04 10:45] LABS: Mean Corpuscular Volume 67 fl (79-97); Red Cell Distribution Width 26.4 % (13.2-15.2)
[2019-11-04 10:45] LABS: Bilirubin,Urine NEG (Negative); Blood,Urine NEG (Negative); Color,Urine Straw (Yellow); Mucus,Urine FEW /HPF; Protein,Urine <15 mg/dL mg/dL (Negative); Urobilinogen,Urine < 2.0 mg/dL (<2.0)
[2019-11-04] MEDS ORDERED: SODIUM CHLORIDE 0.9% 500 ML 500 ML IV ONE ×2 (11:00→14:45)
[2019-11-04] MEDS ORDERED: SODIUM CHLORIDE 0.9% 1000 ML 1,000 ML IV ONE (11:10)
--- NOTE | 2019-11-04 11:33 | Emergency Department Report ---
<JOJO NELSON - Last Filed: 11/04/19 14:29> ED General Adult HPI - General Chief complaint: Extremity Problem,Nontraumatic Stated complaint: SWOLLEN EXTREMITIES Time Seen by Provider: 11/04/19 09:21 - Related Data Previous Rx's Medication Instructions Recorded Last Taken Type Fluticasone [Flonase] 1 spray NS QDAY #1 bottle 11/01/19 Unknown Rx Ondansetron [Zofran Odt] 4 mg PO Q8HR PRN #14 tab.rapdis 11/01/19 Unknown Rx traMADoL [Ultram 50 MG tab] 50 mg PO Q4HR PRN #14 tablet 11/01/19 Unknown Rx Ferrous Sulfate [Ferrous Sulfate 324 mg PO DAILY #30 tablet. 11/04/19 Unknown Rx 324 MG] Naproxen 500 mg PO Q12H PRN #12 tablet 11/04/19 Unknown Rx Allergies Allergy/AdvReac Type Severity Reaction Status Date / Time amoxicillin Allergy Swelling Verified 11/24/18 14:07 ED Past Medical Hx - Medications Home Medications: Home Medications Medication Instructions Recorded Confirmed Last Taken Type Fluticasone [Flonase] 1 spray NS QDAY #1 bottle 11/01/19 Unknown Rx Ondansetron [Zofran Odt] 4 mg PO Q8HR PRN #14 tab.rapdis 11/01/19 Unknown Rx traMADoL [Ultram 50 MG tab] 50 mg PO Q4HR PRN #14 tablet 11/01/19 Unknown Rx Ferrous Sulfate [Ferrous Sulfate 324 mg PO DAILY #30 tablet. 11/04/19 Unknown Rx 324 MG] Naproxen 500 mg PO Q12H PRN #12 tablet 11/04/19 Unknown Rx ED Medical Decision Making - Lab Data Result diagrams: 11/04/19 09:43 11/04/19 09:43 - Medical Decision Making case was d/c with me and I spoke to the pt. Pt had a heavy menses that ended several days ago. Pt is guaic neg, no active bleeding, and iron deficiency anemia. Pt is symptomatic and she complains of symptoms of fatigue, dyspnea on exertion, lightheadedness. 1 unit of prbc ordered to be initiated in the ED. Additional unit of blood ordered (2 total). case d/w hospitalist for admission. She has had 3 previous blood transfusions in the past. Although she has a history of iron deficiency anemia, she is not on any iron tablets because she did not have any. As of 2:39 PM patient still awaiting blood transfusion because she has antibodies and therefore it is taking longer to crossmatch her blood. Patient be reassessed after blood transfusion to determine if symptoms have improved and if admission is necessary. Pt is a candidate for discharge on iron tablets if symptoms improve after blood transfusion given that she does not have any active bleeding at this time. ED Disposition Clinical Impression: Symptomatic anemia, Generalized weakness Iron deficiency anemia Qualifiers: Iron deficiency anemia type: unspecified iron deficiency Qualified Code(s): D50.9 - Iron deficiency anemia, unspecified Menorrhagia Qualifiers: Menorrhagia type: with regular cycle Qualified Code(s): N92.0 - Excessive and frequent menstruation with regular cycle Disposition: TO HOME OR SELFCARE Condition: Stable Instructions: Iron Rich Diet (ED), Iron Deficiency Anemia (ED) Additional Instructions: Follow-up with a primary care doctor in 3-5 days or if symptoms worsen and continue return to emergency room as soon as possible. Prescriptions: Ferrous Sulfate [Ferrous Sulfate 324 MG] 324 mg PO DAILY #30 tablet. Naproxen 500 mg PO Q12H PRN #12 tablet PRN Reason: pain Referrals: PRIMARY CAREMD [Primary Care Provider] - 3-5 Days SHAYNE VILLARREAL MD [Staff Physician] - 3-5 Days [facility] [Provider Group] - 3-5 Days <HENNY RICHARDS - Last Filed: 11/04/19 15:58> ED General Adult HPI - General Source: patient Mode of arrival: Ambulatory Limitations: No Limitations - History of Present Illness Initial comments: This is a 49-year-old female that presents to the ED with complaint of bilateral upper and lower extremities numbness, tingling and generalized weakness. Patient stated symptoms has been going on for couple of days. Patient denies any chest pain, shortness of breath, fever, chills, nausea, vomiting, headache, stiff neck, abdominal pain or blood in stool. Patient does have history of anemia which she does not take any medications for. Patient stated she just finished her heavy menstrual cycle. -: days(s) Location: upper extremity, lower extremity Radiation: non-radiation Quality: aching, other (numbness, tingling) Consistency: constant Improves with: none Worsens with: none Associated Symptoms: weakness. denies: confusion, chest pain, cough, diaphoresis, fever/chills, headaches, loss of appetite, malaise, nausea/vomiting, rash, seizure, shortness of breath, syncope Treatments Prior to Arrival: none ED Review of Systems ROS: Stated complaint: SWOLLEN EXTREMITIES Other details as noted in HPI Constitutional: denies: chills, fever Eyes: denies: eye pain, eye discharge, vision change ENT: denies: ear pain, throat pain Respiratory: denies: cough, shortness of breath, wheezing Cardiovascular: denies: chest pain, palpitations Endocrine: no symptoms reported Gastrointestinal: denies: abdominal pain, nausea, diarrhea Genitourinary: denies: urgency, dysuria, discharge Musculoskeletal: denies: back pain, joint swelling, arthralgia Skin: denies: rash, lesions Neurological: weakness. denies: headache, paresthesias Psychiatric: denies: anxiety, depression Hematological/Lymphatic: denies: easy bleeding, easy bruising ED Past Medical Hx - Past Medical History Previous Medical History?: Yes Hx Asthma: Yes - Surgical History Past Surgical History?: No - Social History Smoking Status: Never Smoker Substance Use Type: None ED Physical Exam - General Limitations: No Limitations General appearance: alert, in no apparent distress - Head Head exam: Present: atraumatic, normocephalic - Neck Neck exam: Present: normal inspection, full ROM. Absent: tenderness, meningismus, lymphadenopathy - Respiratory Respiratory exam: Present: normal lung sounds bilaterally. Absent: respiratory distress, wheezes, rales, rhonchi, stridor, chest wall tenderness, accessory muscle use, decreased breath sounds, prolonged expiratory - Cardiovascular Cardiovascular Exam: Present: regular rate, normal rhythm, tachycardia, normal heart sounds. Absent: irregular rhythm, systolic murmur, diastolic murmur, rubs, gallop - GI/Abdominal GI/Abdominal exam: Present: soft, normal bowel sounds. 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 Absent: decreased rectal tone, heme (+) stool, black stool, bloody stool, fecal impaction, hemorrhoids, mass, tenderness - Extremities Exam Extremities exam: Present: normal inspection, full ROM, normal capillary refill. Absent: tenderness, joint swelling, calf tenderness - Back Exam Back exam: Present: normal inspection, full ROM. Absent: tenderness, CVA tenderness (R), CVA tenderness (L), muscle spasm, paraspinal tenderness, vertebral tenderness, rash noted - Neurological Exam Neurological exam: Present: alert, oriented X3, normal gait - Psychiatric Psychiatric exam: Present: normal affect, normal mood - Skin Skin exam: Present: warm, dry, intact, normal color. Absent: rash ED Course Vital Signs 11/04/19 11/04/19 11/04/19 09:08 09:36 10:36 Temperature 98.8 F Pulse Rate 94 H Respiratory 20 18 18 Rate Blood Pressure 127/73 O2 Sat by Pulse 100 Oximetry 11/04/19 11/04/19 11/04/19 12:48 13:40 14:07 Temperature Pulse Rate Respiratory 18 18 18 Rate Blood Pressure O2 Sat by Pulse Oximetry - Reevaluation(s) Reevaluation #1: 11/04/19 12:06 Patient is speaking in full sentences with no signs of distress noted. - Consultations Consultation #1: 11/04/19 12:06 Patient has been consulted with Mert Crockett about patient history, physical exam, and labs and agrees to the ED plan of care. Consultation #2: 11/04/19 12:12 Patient has been consulted with Dr. Goodrich about patient history, physical exam, and labs but stated patient can be discharge with follow-up. ED Medical Decision Making - Lab Data Result diagrams: 11/04/19 09:43 11/04/19 09:43 - Medical Decision Making 49-year-old female that presents with symptomatic anemia secondary to menstrual cycle. Patient was examined by me. Labs has been obtained. Patient consulted with Dr. Nelson and agrees to the ED plan of care and discharge instructions if symptoms resolve after blood transfusion. Patient received 2 units of PRBC, 1L normal saline, and pain medications. Patient stated that symptoms has si gnificantly resolve and subsided. Patient was educated on iron rich diet. Vital signs are stable prior to discharge. Patient will be discharged with ferrous sulfate. Patient was instructed to follow-up with a primary care doctor in 3-5 days or if symptoms worsen and continue return to emergency room as soon as possible. At time of discharge, the patient does not seem toxic or ill in appearance. No acute signs of distress noted. Patient agrees to discharge treatment plan of care. No further questions noted by the patient. Critical care attestation.: If time is entered above; I have spent that time in minutes in the direct care of this critically ill patient, excluding procedure time. ED Disposition Is pt being admited?: No Does the pt Need Aspirin: No
[2019-11-04] MEDS ORDERED: ACETAMINOPHEN 325 MG TAB PO ONE (12:47)
[2019-11-04 13:10] LABS: Basophils % (Manual) 0 % (0.0-1.8); Total Cells Counted 100
[2019-11-04 13:11] LABS: Anisocytosis 1+; Hypochromasia 2+; Platelet Estimate Consistent w Auto
[2019-11-04 13:47] LABS: % Iron Saturation 3.03 %
[2019-11-04] MEDS ORDERED: MORPHINE 4 MG/1 ML INJ IV ONE ×3 (14:02→20:42)
[2019-11-04] MEDS ORDERED: MORPHINE 4 MG/1 ML INJ ONE (14:05)
--- NOTE | 2019-11-04 20:33 | Event Note ---
Date: 11/04/19 49-year-old female with iron deficiency anemia, menorrhagia,. Patient seen and evaluated in the emergency department. Lab and imaging studies reviewed. Patient found to have symptomatic anemia. 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 Follow-up primary care physician within 3 to 5 days. And age-appropriate screening test. Outpatient GI follow-up for screening colonoscopy. Patient medically optimized and back to usual state of health. Patient does not meet admission criteria at this time. ED Physical Exam - General Limitations: No Limitations General appearance: alert, in no apparent distress - Head Head exam: Present: atraumatic, normocephalic - Neck Neck exam: Present: normal inspection, full ROM. Absent: tenderness, meningismus, lymphadenopathy - Respiratory Respiratory exam: Present: normal lung sounds bilaterally. Absent: respiratory distress, wheezes, rales, rhonchi, stridor, chest wall tenderness, accessory muscle use, decreased breath sounds, prolonged expiratory - Cardiovascular Cardiovascular Exam: Present: regular rate, normal rhythm, tachycardia, normal heart sounds. Absent: irregular rhythm, systolic murmur, diastolic murmur, rubs, gallop - GI/Abdominal GI/Abdominal exam: Present: soft, normal bowel sounds. Absent: distended, tenderness, guarding, rebound, rigid, diminished bowel sounds - Rectal Rectal exam: Present: normal inspection, normal rectal tone, o - Extremities Exam Extremities exam: Present: normal inspection, full ROM, normal capillary refill. Absent: tenderness, joint swelling, calf tenderness - Back Exam Back exam: Present: normal inspection, full ROM. Absent: tenderness, CVA tenderness (R), CVA tenderness (L), muscle spasm, paraspinal tenderness, vertebral tenderness, rash noted - Neurological Exam Neurological exam: Present: alert, oriented X3, normal gait - Psychiatric Psychiatric exam: Present: normal affect, normal mood - Skin Skin exam: Present: warm, dry, intact, normal color. Absent: rash
[2019-11-05] MEDS ORDERED: SODIUM CHLORIDE 0.9% 500 ML 500 ML ONE (00:56)
[2019-11-05] MEDS ORDERED: MORPHINE 4 MG/1 ML INJ IV ONE (01:55)
[2019-11-05 05:18] LABS: Hematocrit 24.9 % (30.3-42.9); Hemoglobin 7.6 gm/dl (10.1-14.3); Mean Corpuscular HGB Conc 31 % (30-34); Platelet Count 264 K/mm3 (140-440); Red Blood Count 3.57 M/mm3 (3.65-5.03)
[2019-11-05 05:24] VITALS: BP 128/65
[2019-11-05 05:24] LABS: Mean Corpuscular Volume 70 fl (79-97); Red Cell Distribution Width 27.8 % (13.2-15.2)
== END 2019-11-05 05:40 | disposition home or self-care (01) ==
LOC: ED 09:01
DX: D50.9 Iron deficiency anemia, unspecified (principal); N92.0 Excessive and frequent menstruation with regular cycle; R53.1 Weakness; J45.909 Unspecified asthma, uncomplicated; Z88.0 Allergy status to penicillin; Z79.899 Other long term (current) drug therapy
CPT/HCPCS: 36415; 36430; 80048; 81001; 82271; 82962; 83550; 85007; 85025; 85027; 86850; 86870; 86900; 86901; 86922; 96374; 96376; 99284; J2270; J7030; J7040; P9016; 86920

== ENCOUNTER 2020-04-17 11:25 | Emergency (ER) | payer SELFPAY ==
[2020-04-17 11:45] VITALS: BP 123/37
--- NOTE | 2020-04-17 12:30 | Emergency Department Report ---
ED General Adult HPI - General Chief complaint: Sore Throat Stated complaint: SORE THROAT, RASH Time Seen by Provider: 04/17/20 12:24 Source: patient Mode of arrival: Ambulatory Limitations: No Limitations - History of Present Illness Initial comments: 50-year-old -[place] female resents emergency department complaining of a few day history of odynophagia with minimal dysphagia dysphagia and aches and pains to her joints very indicative of something she has done in the past. She reports no hemoptysis no hematemesis no hematochezia. She reports no chest pain no palpitations no no diarrhea no nausea vomiting. -: Gradual Radiation: non-radiation Quality: dull Consistency: constant Improves with: none Worsens with: none Associated Symptoms: other (sore throat) Treatments Prior to Arrival: none - Related Data Previous Rx's Medication Instructions Recorded Last Taken Type Fluticasone [Flonase] 1 spray NS QDAY #1 bottle 11/01/19 Unknown Rx Ondansetron [Zofran Odt] 4 mg PO Q8HR PRN #14 tab.rapdis 11/01/19 Unknown Rx traMADoL [Ultram 50 MG tab] 50 mg PO Q4HR PRN #14 tablet 11/01/19 Unknown Rx Ferrous Sulfate [Ferrous Sulfate 324 mg PO DAILY #30 tablet.dr 11/04/19 Unknown Rx 324 MG] Naproxen 500 mg PO Q12H PRN #12 tablet 11/04/19 Unknown Rx Chlorhexidine Mouthwash [Peridex] 15 ml MM BID #1 bottle 04/17/20 Unknown Rx DOXYCYCLINE Hyclate [Vibramycin 100 mg PO BID #20 capsule 04/17/20 Unknown Rx CAP] Ketorolac [Toradol] 10 mg PO Q6H PRN #15 tablet 04/17/20 Unknown Rx Lidocaine Viscous 2% 5 ml MM Q3H PRN #120 udc 04/17/20 Unknown Rx dexAMETHasone [Decadron] 4 mg PO Q12H #60 tablet 04/17/20 Unknown Rx Allergies Allergy/AdvReac Type Severity Reaction Status Date / Time amoxicillin Allergy Swelling Verified 11/24/18 14:07 ED Review of Systems ROS: Stated complaint: SORE THROAT, RASH Other details as noted in HPI Comment: All other systems reviewed and negative ED Past Medical Hx - Past Medical History Previous Medical History?: Yes Hx Asthma: Yes - Social History Smoking Status: Never Smoker Substance Use Type: None - Medications Home Medications: Home Medications Medication Instructions Recorded Confirmed Last Taken Type Fluticasone [Flonase] 1 spray NS QDAY #1 bottle 11/01/19 Unknown Rx Ondansetron [Zofran Odt] 4 mg PO Q8HR PRN #14 tab.rapdis 11/01/19 Unknown Rx traMADoL [Ultram 50 MG tab] 50 mg PO Q4HR PRN #14 tablet 11/01/19 Unknown Rx Ferrous Sulfate [Ferrous Sulfate 324 mg PO DAILY #30 tablet.dr 11/04/19 Unknown Rx 324 MG] Naproxen 500 mg PO Q12H PRN #12 tablet 11/04/19 Unknown Rx Chlorhexidine Mouthwash [Peridex] 15 ml MM BID #1 bottle 04/17/20 Unknown Rx DOXYCYCLINE Hyclate [Vibramycin 100 mg PO BID #20 capsule 04/17/20 Unknown Rx CAP] Ketorolac [Toradol] 10 mg PO Q6H PRN #15 tablet 04/17/20 Unknown Rx Lidocaine Viscous 2% 5 ml MM Q3H PRN #120 udc 04/17/20 Unknown Rx dexAMETHasone [Decadron] 4 mg PO Q12H #60 tablet 04/17/20 Unknown Rx ED Physical Exam - General Limitations: No Limitations General appearance: alert, in no apparent distress - Head Head exam: Present: atraumatic, normocephalic - Eye Eye exam: Present: normal appearance, PERRL, EOMI Pupils: Present: normal accommodation - ENT ENT exam: Present: normal exam, normal orophraynx, mucous membranes moist, TM's normal bilaterally - Neck Neck exam: Present: normal inspection, full ROM, lymphadenopathy. Absent: tenderness, meningismus - Respiratory Respiratory exam: Present: normal lung sounds bilaterally. Absent: respiratory distress, wheezes, rales, chest wall tenderness, accessory muscle use - Cardiovascular Cardiovascular Exam: Present: regular rate, normal rhythm. Absent: bradycardia, tachycardia, systolic murmur, diastolic murmur, rubs, gallop - GI/Abdominal GI/Abdominal exam: Present: soft, normal bowel sounds. Absent: distended, tenderness, hypoactive bowel sounds, organomegaly - Extremities Exam Extremities exam: Present: normal inspection, full ROM, normal capillary refill. Absent: pedal edema - Back Exam Back exam: Present: normal inspection. Absent: CVA tenderness (R), CVA tenderness (L) - Neurological Exam Neurological exam: Present: alert, oriented X3, CN II-XII intact - Psychiatric Psychiatric exam: Present: normal affect, normal mood - Skin Skin exam: Present: warm, dry, intact, normal color. Absent: rash, cyanosis ED Course Vital Signs 04/17/20 11:44 Temperature 97.8 F Pulse Rate 104 H Respiratory 20 Rate Blood Pressure 123/37 [Right] O2 Sat by Pulse 97 Oximetry Critical care attestation.: If time is entered above; I have spent that time in minutes in the direct care of this critically ill patient, excluding procedure time. ED Disposition Clinical Impression: Pharyngitis Disposition: DC- TO HOME OR SELFCARE Is pt being admited?: No Does the pt Need Aspirin: No Condition: Stable Instructions: Pharyngitis, Sore Throat Prescriptions: dexAMETHasone [Decadron] 4 mg PO Q12H #60 tablet Lidocaine Viscous 2% 5 ml MM Q3H PRN #120 udc PRN Reason: Pain, Moderate (4-6) Chlorhexidine Mouthwash [Peridex] 15 ml MM BID #1 bottle Ketorolac [Toradol] 10 mg PO Q6H PRN #15 tablet PRN Reason: Pain DOXYCYCLINE Hyclate [Vibramycin CAP] 100 mg PO BID #20 capsule Referrals: [facility] [Provider Group] - 3-5 Days
== END 2020-04-17 12:37 | disposition home or self-care (01) ==
LOC: ED 11:25
DX: J02.9 Acute pharyngitis, unspecified (principal); J45.909 Unspecified asthma, uncomplicated; Z79.899 Other long term (current) drug therapy; Z88.1 Allergy status to other antibiotic agents
CPT/HCPCS: 99282

== ENCOUNTER 2020-06-06 02:31 | Emergency (ER) | payer SELFPAY ==
[2020-06-06 07:08] LABS: Basophils % (Auto) 0.5 % (0.0-1.8); Eosinophils # (Auto) 0.4 K/mm3 (0.0-0.4); Eosinophils % (Auto) 4.6 % (0.0-4.3); Hemoglobin 11.7 gm/dl (10.1-14.3); Lymphocytes # (Auto) 2.7 K/mm3 (1.2-5.4); Monocytes # (Auto) 0.6 K/mm3 (0.0-0.8); Monocytes % (Auto) 7.5 % (0.0-7.3)
[2020-06-06 07:23] LABS: Hematocrit 35.3 % (30.3-42.9); Mean Corpuscular HGB Conc 34 % (30-34); Mean Corpuscular Volume 84 fl (79-97); Platelet Count 280 K/mm3 (140-440); Red Blood Count 4.23 M/mm3 (3.65-5.03); Red Cell Distribution Width 15.9 % (13.2-15.2)
[2020-06-06 07:28] LABS: Alanine Aminotransferase 11 units/L (7-56); BUN/Creatinine Ratio 20; Blood Urea Nitrogen 22 mg/dL (7-17); Calcium 9.8 mg/dL (8.4-10.2); Hemolysis Index 22
--- NOTE | 2020-06-06 11:14 | Emergency Department Report ---
ED General Adult HPI - General Chief complaint: Extremity Injury, Upper Stated complaint: SWELLING BOTH ARMS AND FOREHEAD Time Seen by Provider: 06/06/20 11:06 Source: patient Mode of arrival: Ambulatory Limitations: No Limitations - History of Present Illness Initial comments: Patient is a 50-year-old female presents emergency room with complaints of g eneralized diffuse joint pain that began yesterday. She states that she gets this intermittently. She states that she did test positive for one of the autoimmune disorders but she is not sure which one. States that she has not had a full autoimmune panel with a primary care doctor or meat wrapper. She states that she has noted some swelling. She denies any fall or injury. She denies any numbness or weakness. She denies any redness or skin changes. She has an allergy to amoxicillin. - Related Data Previous Rx's Medication Instructions Recorded Last Taken Type Fluticasone [Flonase] 1 spray NS QDAY #1 bottle 11/01/19 Unknown Rx Ondansetron [Zofran Odt] 4 mg PO Q8HR PRN #14 tab.rapdis 11/01/19 Unknown Rx traMADoL [Ultram 50 MG tab] 50 mg PO Q4HR PRN #14 tablet 11/01/19 Unknown Rx Ferrous Sulfate [Ferrous Sulfate 324 mg PO DAILY #30 tablet. 11/04/19 Unknown Rx 324 MG] Naproxen 500 mg PO Q12H PRN #12 tablet 11/04/19 Unknown Rx Chlorhexidine Mouthwash [Peridex] 15 ml MM BID #1 bottle 04/17/20 Unknown Rx DOXYCYCLINE Hyclate [Vibramycin 100 mg PO BID #20 capsule 04/17/20 Unknown Rx CAP] Ketorolac [Toradol] 10 mg PO Q6H PRN #15 tablet 04/17/20 Unknown Rx Lidocaine Viscous 2% 5 ml MM Q3H PRN #120 udc 04/17/20 Unknown Rx dexAMETHasone [Decadron] 4 mg PO Q12H #60 tablet 04/17/20 Unknown Rx Acetaminophen/Codeine [Tylenol 1 tab PO Q8HR PRN #10 tab 06/06/20 Unknown Rx /Codeine # 3 tab] Naproxen [EC-Naprosyn] 500 mg PO BID PRN #20 tablet. 06/06/20 Unknown Rx Prednisone [predniSONE 10 mg 10 mg PO .TAPER #1 tab.ds.pk 12/30/20 Unknown Rx (6-Day Pack, 21 Tabs)] Allergies Allergy/AdvReac Type Severity Reaction Status Date / Time amoxicillin Allergy Swelling Verified 11/24/18 14:07 ED Review of Systems ROS: Stated complaint: SWELLING BOTH ARMS AND FOREHEAD Other details as noted in HPI Comment: All other systems reviewed and negative ED Past Medical Hx - Past Medical History Previous Medical History?: Yes Hx Asthma: Yes - Surgical History Past Surgical History?: No - Social History Smoking Status: Never Smoker Substance Use Type: None - Medications Home Medications: Home Medications Medication Instructions Recorded Confirmed Last Taken Type Fluticasone [Flonase] 1 spray NS QDAY #1 bottle 11/01/19 Unknown Rx Ondansetron [Zofran Odt] 4 mg PO Q8HR PRN #14 tab.rapdis 11/01/19 Unknown Rx traMADoL [Ultram 50 MG tab] 50 mg PO Q4HR PRN #14 tablet 11/01/19 Unknown Rx Ferrous Sulfate [Ferrous Sulfate 324 mg PO DAILY #30 tablet. 11/04/19 Unknown Rx 324 MG] Naproxen 500 mg PO Q12H PRN #12 tablet 11/04/19 Unknown Rx Chlorhexidine Mouthwash [Peridex] 15 ml MM BID #1 bottle 04/17/20 Unknown Rx DOXYCYCLINE Hyclate [Vibramycin 100 mg PO BID #20 capsule 04/17/20 Unknown Rx CAP] Ketorolac [Toradol] 10 mg PO Q6H PRN #15 tablet 04/17/20 Unknown Rx Lidocaine Viscous 2% 5 ml MM Q3H PRN #120 udc 04/17/20 Unknown Rx dexAMETHasone [Decadron] 4 mg PO Q12H #60 tablet 04/17/20 Unknown Rx Acetaminophen/Codeine [Tylenol 1 tab PO Q8HR PRN #10 tab 06/06/20 Unknown Rx /Codeine # 3 tab] Naproxen [EC-Naprosyn] 500 mg PO BID PRN #20 tablet. 06/06/20 Unknown Rx Prednisone [predniSONE 10 mg 10 mg PO .TAPER #1 tab.ds.pk 06/06/20 Unknown Rx (6-Day Pack, 21 Tabs)] ED Physical Exam - General Limitations: No Limitations General appearance: alert, in no apparent distress - Head Head exam: Present: atraumatic, normocephalic - Eye Eye exam: Present: normal appearance - ENT ENT exam: Present: mucous membranes moist - Respiratory Respiratory exam: Absent: respiratory distress, accessory muscle use - Extremities Exam Extremities exam: Present: other (generalized ttp to the wrists, elbows, knees, no significant edema, no erythema, no skin changes, no increased warmth, FROM of the BUE/BLE, neurovascularly intact) - Neurological Exam Neurological exam: Present: alert, oriented X3 - Psychiatric Psychiatric exam: Present: normal affect, normal mood - Skin Skin exam: Present: warm, dry, intact ED Course Vital Signs 06/06/20 06/06/20 06:25 11:22 Temperature 98.4 F 98.4 F Pulse Rate 87 94 H Respiratory 18 18 Rate Blood Pressure 137/79 Blood Pressure 153/89 [Right] O2 Sat by Pulse 95 98 Oximetry ED Medical Decision Making - Lab Data Result diagrams: 06/06/20 06:54 06/06/20 06:54 Lab Results 06/06/20 06/06/20 06/06/20 Range/Units 06:54 06:54 06:54 WBC 8.2 (4.5-11.0) K/mm3 RBC 4.23 (3.65-5.03) M/mm3 Hgb 11.7 (10.1-14.3) gm/dl Hct 35.3 (30.3-42.9) % MCV 84 (79-97) fl MCH 28 (28-32) pg MCHC 34 (30-34) % RDW 15.9 H (13.2-15.2) % Plt Count 280 (140-440) K/mm3 Lymph % (Auto) 33.0 (13.4-35.0) % [place] % (Auto) 7.5 H (0.0-7.3) % Eos % (Auto) 4.6 H (0.0-4.3) % Baso % (Auto) 0.5 (0.0-1.8) % Lymph # (Auto) 2.7 (1.2-5.4) K/mm3 [place] # (Auto) 0.6 (0.0-0.8) K/mm3 Eos # (Auto) 0.4 (0.0-0.4) K/mm3 Baso # (Auto) 0.0 (0.0-0.1) K/mm3 Seg Neutrophils % 54.4 (40.0-70.0) % Seg Neutrophils # 4.5 (1.8-7.7) K/mm3 Sodium 137 (137-145) mmol/L Potassium 4.2 (3.6-5.0) mmol/L Chloride 104.0 (98-107) mmol/L Carbon Dioxide 19 L (22-30) mmol/L Anion Gap 18 mmol/L BUN 22 H (7-17) mg/dL Creatinine 1.1 (0.6-1.2) mg/dL Estimated GFR > 60 ml/min BUN/Creatinine Ratio 20 % Glucose 104 H (65-100) mg/dL Calcium 9.8 (8.4-10.2) mg/dL Total Bilirubin < 0.20 (0.1-1.2) mg/dL AST 15 (5-40) units/L ALT 11 (7-56) units/L Alkaline Phosphatase 86 (35-129) units/L Total Protein 7.9 (6.3-8.2) g/dL Albumin 4.0 (3.9-5) g/dL Albumin/Globulin Ratio 1.0 % HCG, Qual Negative (Negative) - Medical Decision Making Patient is a 50-year-old female presents emergency room with complaints of generalized diffuse joint pain that began yesterday. She states that she gets this intermittently. She states that she did test positive for one of the autoimmune disorders but she is not sure which one. States that she has not had a full autoimmune panel with a primary care doctor or meat wrapper. She states that she has noted some swelling. She denies any fall or injury. She denies any numbness or weakness. She denies any redness or skin changes. She has an allergy to amoxicillin. VSS. on exam:generalized ttp to the wrists, elbows, knees, no significant edema, no erythema, no skin changes, no increased warmth, FROM of the BUE/BLE, neurovascularly intact. Labs are stable. given her history, symptoms could be related to autoimmune arthritis. She has no signs of septic joint or infection at this time, no signs of cellulitis. Adrien mina given prescription for naproxen, prednisone, Tylenol with codeine. Advised patient Please take medication as prescribed. Please do not drive or operate machinery while taking severe pain medication. Please follow-up with a primary care doctor and discuss your intermittent joint pain. Return to emergency room for any new or worsening symptoms. - Differential Diagnosis Osteoarthritis, rheumatoid arthritis, fibromyalgia, lupus, arthralgia Critical care attestation.: If time is entered above; I have spent that time in minutes in the direct care of this critically ill patient, excluding procedure time. ED Disposition Clinical Impression: Joint pain Qualifiers: Joint pain location: unspecified Qualified Code(s): M25.50 - Pain in unspecified joint Disposition: DC-01 TO HOME OR SELFCARE Is pt being admited?: No Does the pt Need Aspirin: No Condition: Stable Instructions: Joint Pain, [id number] Additional Instructions: Please take medication as prescribed. Please do not drive or operate machinery while taking severe pain medication. Please follow-up with a primary care doctor and discuss your intermittent joint pain. Return to emergency room for any new or worsening symptoms. Prescriptions: Naproxen [EC-Naprosyn] 500 mg PO BID PRN #20 tablet.dr PRN Reason: Pain, Moderate (4-6) Prednisone [predniSONE 10 mg (6-Day Pack, 21 Tabs)] 10 mg PO .TAPER #1 tab.ds.pk Acetaminophen/Codeine [Tylenol /Codeine # 3 tab] 1 tab PO Q8HR PRN #10 tab PRN Reason: Pain , Severe (7-10) Referrals: SHAYNE VILLARREAL MD [Staff Physician] - 3-5 Days [facility] [Provider Group] - 3-5 Days [facility] [Outside] - 3-5 Days Time of Disposition: 11:12 Print Language: LITHUANIAN
[2020-06-06 11:23] VITALS: BP 153/89
== END 2020-06-06 11:22 | disposition home or self-care (01) ==
LOC: ED 02:31
DX: M25.50 Pain in unspecified joint (principal); J45.909 Unspecified asthma, uncomplicated; Z88.0 Allergy status to penicillin; Z79.899 Other long term (current) drug therapy
CPT/HCPCS: 36415; 80053; 84703; 85025; 99283

== ENCOUNTER 2020-08-25 16:31 | Emergency (ER) | payer SELFPAY ==
--- NOTE | 2020-08-25 17:00 | Event Note ---
ED Screening Note ED Screening Note: suprapubic abd pain that began 3 days ago vaginal bleeding for 3 weeks states she is passing clots hx of fibroids hx of anemia, blood transfusion 2020 has not been taking her iron supplements in 3 days, as she ran out she is not seeing an RE[employer]ODUCT[employer]GEON This initial assessment/diagnostic orders/clinical plan/treatment(s) is/are subject to change based on patients health status, clinical progression and re- assessment by fellow clinical providers in the ED. Further treatment and workup at subsequent clinical providers discretion. Patient/guardian urged not to elope from the ED as their condition may be serious if not clinically assessed and managed. Initial orders include: labs, UA
[2020-08-25 18:08] LABS: Alanine Aminotransferase 9 units/L (7-56); BUN/Creatinine Ratio 13; Basophils % (Auto) 0.7 % (0.0-1.8); Blood Urea Nitrogen 13 mg/dL (7-17); Calcium 9.1 mg/dL (8.4-10.2); Eosinophils # (Auto) 0.3 K/mm3 (0.0-0.4); Eosinophils % (Auto) 5.3 % (0.0-4.3); Hematocrit 33.2 % (30.3-42.9); Hemoglobin 11.1 gm/dl (10.1-14.3); Hemolysis Index 2; Lymphocytes # (Auto) 2.1 K/mm3 (1.2-5.4); Lymphocytes % (Auto) 35.8 % (13.4-35.0); Mean Corpuscular HGB Conc 34 % (30-34); Mean Corpuscular Volume 85 fl (79-97); Monocytes # (Auto) 0.6 K/mm3 (0.0-0.8); Monocytes % (Auto) 9.9 % (0.0-7.3); Platelet Count 221 K/mm3 (140-440); Red Blood Count 3.93 M/mm3 (3.65-5.03); Red Cell Distribution Width 19.5 % (13.2-15.2)
[2020-08-25 20:04] LABS: Bilirubin,Urine NEG (Negative); Blood,Urine LG (Negative); Color,Urine Red (Yellow); Urobilinogen,Urine < 2.0 mg/dL (<2.0)
--- NOTE | 2020-08-25 20:39 | Emergency Department Report ---
ED Abdominal Pain HPI - General Chief Complaint: Abdominal Pain Stated Complaint: STOMACH PAIN/BLOOD CLOTS Time Seen by Provider: 08/25/20 16:59 Source: patient Mode of arrival: Ambulatory Limitations: No Limitations - History of Present Illness Initial Comments: 50-year-old -[place] female presents emerge department complaining of suprapubic discomfort associated with increased urinary urgency and frequency and achy sensation also has been having some vaginal bleeding for the last 2 to 3 weeks as well having some clots over the last few days and worried of anemia she does have a known history of iron deficiency anemia and has not been on her iron for several months. She reports no hemoptysis, hematemesis or hematochezia, no fever, chills, sweats, no chest pain, no palpitations. MD Complaint: abdominal pain -: Gradual Location: suprapubic Radiation: suprapubic Severity: mild, moderate Quality: aching, dull Consistency: constant Improves With: nothing Associated Symptoms: denies: hematemesis - Related Data Previous Rx's Medication Instructions Recorded Last Taken Type Fluticasone [Flonase] 1 spray NS QDAY #1 bottle 11/01/19 Unknown Rx Ondansetron [Zofran Odt] 4 mg PO Q8HR PRN #14 tab.rapdis 11/01/19 Unknown Rx traMADoL [Ultram 50 MG tab] 50 mg PO Q4HR PRN #14 tablet 11/01/19 Unknown Rx Ferrous Sulfate [Ferrous Sulfate 324 mg PO DAILY #30 tablet.dr 11/04/19 Unknown Rx 324 MG] Naproxen 500 mg PO Q12H PRN #12 tablet 11/04/19 Unknown Rx Chlorhexidine Mouthwash [Peridex] 15 ml MM BID #1 bottle 04/17/20 Unknown Rx DOXYCYCLINE Hyclate [Vibramycin 100 mg PO BID #20 capsule 04/17/20 Unknown Rx CAP] Ketorolac [Toradol] 10 mg PO Q6H PRN #15 tablet 04/17/20 Unknown Rx Lidocaine Viscous 2% 5 ml MM Q3H PRN #120 udc 04/17/20 Unknown Rx dexAMETHasone [Decadron] 4 mg PO Q12H #60 tablet 04/17/20 Unknown Rx Acetaminophen/Codeine [Tylenol 1 tab PO Q8HR PRN #10 tab 06/06/20 Unknown Rx /Codeine # 3 tab] Naproxen [EC-Naprosyn] 500 mg PO BID PRN #20 tablet. 06/06/20 Unknown Rx Prednisone [predniSONE 10 mg 10 mg PO .TAPER #1 tab.ds.pk 06/06/20 Unknown Rx (6-Day Pack, 21 Tabs)] Sulfamethoxazole/Trimethoprim 1 each PO BID #20 tablet 08/25/20 Unknown Rx [Bactrim DS TAB] Allergies Allergy/AdvReac Type Severity Reaction Status Date / Time amoxicillin Allergy Swelling Verified 11/24/18 14:07 ED Review of Systems ROS: Stated complaint: STOMACH PAIN/BLOOD CLOTS Other details as noted in HPI Comment: All other systems reviewed and negative ED Past Medical Hx - Past Medical History Previous Medical History?: Yes Hx Asthma: Yes - Surgical History Past Surgical History?: Yes - Social History Smoking Status: Never Smoker Substance Use Type: None - Medications Home Medications: Home Medications Medication Instructions Recorded Confirmed Last Taken Type Fluticasone [Flonase] 1 spray NS QDAY #1 bottle 11/01/19 Unknown Rx Ondansetron [Zofran Odt] 4 mg PO Q8HR PRN #14 tab.rapdis 11/01/19 Unknown Rx traMADoL [Ultram 50 MG tab] 50 mg PO Q4HR PRN #14 tablet 11/01/19 Unknown Rx Ferrous Sulfate [Ferrous Sulfate 324 mg PO DAILY #30 tablet. 11/04/19 Unknown Rx 324 MG] Naproxen 500 mg PO Q12H PRN #12 tablet 11/04/19 Unknown Rx Chlorhexidine Mouthwash [Peridex] 15 ml MM BID #1 bottle 04/17/20 Unknown Rx DOXYCYCLINE Hyclate [Vibramycin 100 mg PO BID #20 capsule 04/17/20 Unknown Rx CAP] Ketorolac [Toradol] 10 mg PO Q6H PRN #15 tablet 04/17/20 Unknown Rx Lidocaine Viscous 2% 5 ml MM Q3H PRN #120 udc 04/17/20 Unknown Rx dexAMETHasone [Decadron] 4 mg PO Q12H #60 tablet 04/17/20 Unknown Rx Acetaminophen/Codeine [Tylenol 1 tab PO Q8HR PRN #10 tab 06/06/20 Unknown Rx /Codeine # 3 tab] Naproxen [EC-Naprosyn] 500 mg PO BID PRN #20 tablet. 06/06/20 Unknown Rx Prednisone [predniSONE 10 mg 10 mg PO .TAPER #1 tab.ds.pk 06/06/20 Unknown Rx (6-Day Pack, 21 Tabs)] Sulfamethoxazole/Trimethoprim 1 each PO BID #20 tablet 08/25/20 Unknown Rx [Bactrim DS TAB] ED Physical Exam - General Limitations: No Limitations General appearance: alert, in no apparent distress - Head Head exam: Present: atraumatic, normocephalic - Eye Eye exam: Present: normal appearance, PERRL, EOMI Pupils: Present: normal accommodation - ENT ENT exam: Present: normal exam, normal orophraynx, mucous membranes moist, TM's normal bilaterally - Neck Neck exam: Present: normal inspection, full ROM - Respiratory Respiratory exam: Present: normal lung sounds bilaterally. Absent: respiratory distress - Cardiovascular Cardiovascular Exam: Present: regular rate, normal rhythm. Absent: systolic murmur, diastolic murmur, rubs, gallop - GI/Abdominal GI/Abdominal exam: Present: soft, normal bowel sounds - Extremities Exam Extremities exam: Present: normal inspection - Back Exam Back exam: Present: normal inspection - Neurological Exam Neurological exam: Present: alert, oriented X3 - Psychiatric Psychiatric exam: Present: normal affect, normal mood - Skin Skin exam: Present: warm, dry, intact, normal color. Absent: rash ED Course Vital Signs 08/25/20 08/25/20 08/25/20 16:35 22:19 22:29 Temperature 98 F 98.4 F Pulse Rate 85 82 Respiratory 16 20 20 Rate Blood Pressure 136/51 Blood Pressure 104/69 [Left] O2 Sat by Pulse 99 100 98 Oximetry ED Medical Decision Making - Lab Data Result diagrams: 08/25/20 17:23 08/25/20 17:23 Critical care attestation.: If time is entered above; I have spent that time in minutes in the direct care of this critically ill patient, excluding procedure time. ED Disposition Clinical Impression: UTI (urinary tract infection), Pelvic pain, Pharyngitis Disposition: -01 TO HOME OR SELFCARE Is pt being admited?: No Does the pt Need Aspirin: No Condition: Stable Instructions: Abdominal Pain (ED), Pharyngitis, [id number], Urinary Tract Infection, Adult, Pelvic Pain, Female, [id number] Prescriptions: Sulfamethoxazole/Trimethoprim [Bactrim DS TAB] 1 each PO BID #20 tablet Referrals: PRIMARY CARE, [Primary Care Provider] - 3-5 Days [facility] [Provider Group] - 3-5 Days
[2020-08-25 20:40] LABS: RBC,Urine > 182.0 /HPF (0.0-6.0)
[2020-08-25 22:30] VITALS: BP 104/69
== END 2020-08-25 22:38 | disposition home or self-care (01) ==
LOC: ED 16:31
DX: J02.9 Acute pharyngitis, unspecified (principal); N39.0 Urinary tract infection, site not specified; R10.2 Pelvic and perineal pain; J45.909 Unspecified asthma, uncomplicated; Z88.0 Allergy status to penicillin; Z79.899 Other long term (current) drug therapy
CPT/HCPCS: 36415; 80053; 81001; 84702; 85025; 87086

== ENCOUNTER 2021-07-30 16:32 | Emergency (ER) | payer SELFPAY ==
[2021-07-30 20:11] VITALS: BP 119/65
[2021-07-31] MEDS ORDERED: IBUPROFEN 800 MG TAB PO ONE (00:20)
[2021-07-31] MEDS ORDERED: CLINDAMYCIN 300 MG CAP PO ONE (00:20)
--- NOTE | 2021-07-31 01:48 | Emergency Department Report ---
ED ENT HPI - General Chief complaint: Sore Throat Stated complaint: EARACHE/SORE THROAT Time Seen by Provider: 07/31/21 00:19 Source: patient Mode of arrival: Ambulatory Limitations: No Limitations - History of Present Illness Initial comments: Is a 51-year-old female who presents for right ear pain. Rated at 5/10 aching for the past week. Patient denies loss of hearing. There is no fevers no chills no nausea vomiting. Patient states intermittent sore throat there is no dysphagia. Patient is tolerating p.o. intake there is no dental pain. MD complaint: sore throat, ear pain - Related Data Previous Rx's Medication Instructions Recorded Last Taken Type Fluticasone [Flonase] 1 spray NS QDAY #1 bottle 11/01/19 Unknown Rx Ondansetron [Zofran Odt] 4 mg PO Q8HR PRN #14 tab.rapdis 11/01/19 Unknown Rx traMADoL [Ultram 50 MG tab] 50 mg PO Q4HR PRN #14 tablet 11/01/19 Unknown Rx Ferrous Sulfate [Ferrous Sulfate 324 mg PO DAILY #30 tablet. 11/04/19 Unknown Rx 324 MG] Naproxen 500 mg PO Q12H PRN #12 tablet 11/04/19 Unknown Rx Chlorhexidine Mouthwash [Peridex] 15 ml MM BID #1 bottle 04/17/20 Unknown Rx DOXYCYCLINE Hyclate [Vibramycin 100 mg PO BID #20 capsule 04/17/20 Unknown Rx CAP] Ketorolac [Toradol] 10 mg PO Q6H PRN #15 tablet 04/17/20 Unknown Rx Lidocaine Viscous 2% 5 ml MM Q3H PRN #120 udc 04/17/20 Unknown Rx dexAMETHasone [Decadron] 4 mg PO Q12H #60 tablet 04/17/20 Unknown Rx Acetaminophen/Codeine [Tylenol 1 tab PO Q8HR PRN #10 tab 06/06/20 Unknown Rx /Codeine # 3 tab] Naproxen [EC-Naprosyn] 500 mg PO BID PRN #20 tablet. 06/06/20 Unknown Rx Prednisone [predniSONE 10 mg 10 mg PO .TAPER #1 tab.ds.pk 06/06/20 Unknown Rx (6-Day Pack, 21 Tabs)] Sulfamethoxazole/Trimethoprim 1 each PO BID #20 tablet 08/25/20 Unknown Rx [Bactrim DS TAB] Clindamycin [Clindamycin CAP] 300 mg PO Q8H 7 Days #21 cap 07/31/21 Unknown Rx Ibuprofen [Motrin 800 MG tab] 800 mg PO Q8HR PRN #30 tablet 07/31/21 Unknown Rx Allergies Allergy/AdvReac Type Severity Reaction Status Date / Time amoxicillin Allergy Swelling Verified 11/24/18 14:07 ED Dental HPI - General Chief complaint: Sore Throat Stated complaint: EARACHE/SORE THROAT Time Seen by Provider: 07/31/21 00:19 Source: patient Mode of arrival: Ambulatory Limitations: No Limitations - Related Data Previous Rx's Medication Instructions Recorded Last Taken Type Fluticasone [Flonase] 1 spray NS QDAY #1 bottle 11/01/19 Unknown Rx Ondansetron [Zofran Odt] 4 mg PO Q8HR PRN #14 tab.rapdis 11/01/19 Unknown Rx traMADoL [Ultram 50 MG tab] 50 mg PO Q4HR PRN #14 tablet 11/01/19 Unknown Rx Ferrous Sulfate [Ferrous Sulfate 324 mg PO DAILY #30 tablet. 11/04/19 Unknown Rx 324 MG] Naproxen 500 mg PO Q12H PRN #12 tablet 11/04/19 Unknown Rx Chlorhexidine Mouthwash [Peridex] 15 ml MM BID #1 bottle 04/17/20 Unknown Rx DOXYCYCLINE Hyclate [Vibramycin 100 mg PO BID #20 capsule 04/17/20 Unknown Rx CAP] Ketorolac [Toradol] 10 mg PO Q6H PRN #15 tablet 04/17/20 Unknown Rx Lidocaine Viscous 2% 5 ml MM Q3H PRN #120 udc 04/17/20 Unknown Rx dexAMETHasone [Decadron] 4 mg PO Q12H #60 tablet 04/17/20 Unknown Rx Acetaminophen/Codeine [Tylenol 1 tab PO Q8HR PRN #10 tab 06/06/20 Unknown Rx /Codeine # 3 tab] Naproxen [EC-Naprosyn] 500 mg PO BID PRN #20 tablet. 06/06/20 Unknown Rx Prednisone [predniSONE 10 mg 10 mg PO .TAPER #1 tab.ds.pk 06/06/20 Unknown Rx (6-Day Pack, 21 Tabs)] Sulfamethoxazole/Trimethoprim 1 each PO BID #20 tablet 08/25/20 Unknown Rx [Bactrim DS TAB] Clindamycin [Clindamycin CAP] 300 mg PO Q8H 7 Days #21 cap 07/31/21 Unknown Rx Ibuprofen [Motrin 800 MG tab] 800 mg PO Q8HR PRN #30 tablet 07/31/21 Unknown Rx Allergies Allergy/AdvReac Type Severity Reaction Status Date / Time amoxicillin Allergy Swelling Verified 11/24/18 14:07 ED Review of Systems ROS: Stated complaint: EARACHE/SORE THROAT Other details as noted in HPI Constitutional: malaise. denies: chills, fever Eyes: denies: eye pain, eye discharge, vision change ENT: ear pain, throat pain, congestion Respiratory: denies: cough, shortness of breath, wheezing Cardiovascular: denies: chest pain, palpitations Endocrine: no symptoms reported Gastrointestinal: denies: abdominal pain, nausea, diarrhea Genitourinary: denies: urgency, dysuria, discharge Musculoskeletal: denies: back pain, joint swelling, arthralgia Skin: denies: rash, lesions Neurological: denies: headache, weakness, paresthesias, vertigo Psychiatric: denies: anxiety, depression Hematological/Lymphatic: denies: easy bleeding, easy bruising ED Past Medical Hx - Past Medical History Hx Asthma: Yes - Social History Smoking Status: Never Smoker Substance Use Type: None - Medications Home Medications: Home Medications Medication Instructions Recorded Confirmed Last Taken Type Fluticasone [Flonase] 1 spray NS QDAY #1 bottle 11/01/19 Unknown Rx Ondansetron [Zofran Odt] 4 mg PO Q8HR PRN #14 tab.rapdis 11/01/19 Unknown Rx traMADoL [Ultram 50 MG tab] 50 mg PO Q4HR PRN #14 tablet 11/01/19 Unknown Rx Ferrous Sulfate [Ferrous Sulfate 324 mg PO DAILY #30 tablet.dr 11/04/19 Unknown Rx 324 MG] Naproxen 500 mg PO Q12H PRN #12 tablet 11/04/19 Unknown Rx Chlorhexidine Mouthwash [Peridex] 15 ml MM BID #1 bottle 04/17/20 Unknown Rx DOXYCYCLINE Hyclate [Vibramycin 100 mg PO BID #20 capsule 04/17/20 Unknown Rx CAP] Ketorolac [Toradol] 10 mg PO Q6H PRN #15 tablet 04/17/20 Unknown Rx Lidocaine Viscous 2% 5 ml MM Q3H PRN #120 udc 04/17/20 Unknown Rx dexAMETHasone [Decadron] 4 mg PO Q12H #60 tablet 04/17/20 Unknown Rx Acetaminophen/Codeine [Tylenol 1 tab PO Q8HR PRN #10 tab 06/06/20 Unknown Rx /Codeine # 3 tab] Naproxen [EC-Naprosyn] 500 mg PO BID PRN #20 tablet.dr 06/06/20 Unknown Rx Prednisone [predniSONE 10 mg 10 mg PO .TAPER #1 tab.ds.pk 06/06/20 Unknown Rx (6-Day Pack, 21 Tabs)] Sulfamethoxazole/Trimethoprim 1 each PO BID #20 tablet 08/25/20 Unknown Rx [Bactrim DS TAB] Clindamycin [Clindamycin CAP] 300 mg PO Q8H 7 Days #21 cap 07/31/21 Unknown Rx Ibuprofen [Motrin 800 MG tab] 800 mg PO Q8HR PRN #30 tablet 07/31/21 Unknown Rx ED Physical Exam - General Limitations: No Limitations General appearance: alert, in no apparent distress - Head Head exam: Present: atraumatic, normocephalic - Eye Eye exam: Present: normal appearance, PERRL, EOMI. Absent: conjunctival injection, nystagmus Pupils: Present: normal accommodation - ENT ENT exam: Present: normal orophraynx, mucous membranes moist, normal external ear exam - Expanded ENT Exam Expanded TM/Canal exam: Erythema: Right TM, Effusion: Right TM, Canal Tenderness: Right TM Throat exam: Positive: normal inspection. Negative: tonsillar erythema, tonsill omegaly, tonsillar exudate, R peritonsillar mass, L peritonsillar mass - Neck Neck exam: Present: normal inspection, full ROM. Absent: tenderness, lymphadenopathy - Respiratory Respiratory exam: Present: normal lung sounds bilaterally. Absent: respiratory distress, wheezes, stridor - Cardiovascular Cardiovascular Exam: Present: regular rate, normal rhythm, normal heart sounds. Absent: systolic murmur, diastolic murmur, rubs, gallop - GI/Abdominal GI/Abdominal exam: Present: soft, normal bowel sounds. Absent: distended, tenderness - Rectal Rectal exam: Present: deferred - Extremities Exam Extremities exam: Present: normal inspection, full ROM, normal capillary refill - Back Exam Back exam: Present: normal inspection, full ROM. Absent: CVA tenderness (R), CVA tenderness (L) - Neurological Exam Neurological exam: Present: alert, oriented X3, CN II-XII intact, normal gait - Psychiatric Psychiatric exam: Present: normal affect, normal mood - Skin Skin exam: Present: warm, dry, intact, normal color. Absent: rash ED Course Vital Signs 07/30/21 20:03 Temperature 98.9 F Pulse Rate 94 H Respiratory 17 Rate Blood Pressure 119/65 [Left] O2 Sat by Pulse 100 Oximetry ED Medical Decision Making - Medical Decision Making This is AOM, pharynx is patent there is no exudate no lesions uvula is midline. There is no stridor or wheezing. There is no dysphagia. No swelling. Plan treat for AOM, follow-up with primary care doctor in 2 to 3 days. Patient verbalizes agreement and understanding with discharge plan. Patient DC'd home in stable condition at this time. Patient is penicillin allergic we will treat with clindamycin. Critical care attestation.: If time is entered above; I have spent that time in minutes in the direct care of this critically ill patient, excluding procedure time. ED Disposition Clinical Impression: AOM (acute otitis media) Qualifiers: Otitis media type: serous Laterality: right Recurrence: recurrent Qualified Code(s): H65.04 - Acute serous otitis media, recurrent, right ear Disposition: 01 HOME / SELF CARE / HOMELESS Is pt being admited?: No Does the pt Need Aspirin: No Condition: Stable Instructions: Otitis Media, Adult Additional Instructions: Take medications as prescribed, follow-up with your doctor in 2 to 3 days. Prescriptions: Clindamycin [Clindamycin CAP] 300 mg PO Q8H 7 Days #21 cap Ibuprofen [Motrin 800 MG tab] 800 mg PO Q8HR PRN #30 tablet PRN Reason: pain fever Forms: Work/School Release Form(ED) Time of Disposition: 01:52
== END 2021-07-31 01:55 | disposition home or self-care (01) ==
LOC: ED 16:32
DX: H66.91 Otitis media, unspecified, right ear (principal); J45.909 Unspecified asthma, uncomplicated; Z99.0 Dependence on aspirator
CPT/HCPCS: 99282